=== PATIENT | female | born 1945 | race Caucasian/White ===

== ENCOUNTER 2019-12-29 10:26 | Outpatient (CLI) | payer BC, SELFPAY ==
[2019-12-29 11:18] LABS: Estimated Glomerular Filt Rate > 60
== END 2019-12-29 10:27 | disposition home or self-care (01) ==
LOC: ANHSURGERY 10:31
PROVIDERS: PCP Family Medicine; Visit Provider Orthopaedic Surgery
DX: M19.90 Unspecified osteoarthritis, unspecified site (principal)
CPT/HCPCS: 36415; 82565; 86850; 86880; 86900; 86901; 86922

== ENCOUNTER 2020-01-04 00:21 | Day surgery (SDC) | payer BC, SELFPAY ==
[2019-12-07 14:03] VITALS: BMI 24.7
[2019-12-07 14:46] VITALS: BMI 24.7
[2020-01-04] VITALS (13 sets, daily range): BP systolic 114–146; BP diastolic 31–93; PULSE 60–82; RESP 12–316; TEMP 36.2–36.7; O2SAT 91–100
--- NOTE | ~2020-01-04 | XR_ITS ---
EXAMINATION: XR knee RT 2V DATE: 01/04/2020 12:34 INDICATION: Postoperative evaluation following right total knee arthroplasty. TECHNIQUE: Anteroposterior and lateral views of the right knee were obtained. COMPARISON: None. FINDINGS: Right total knee arthroplasty with patellar resurfacing appears well seated and in near anatomic alig nment. No fractures identified. Expected postoperative subcutaneous and intra-articular gas. IMPRESSION: 1. Right total knee arthroplasty, negative for postoperative purposes. Reviewed, dictated and finalized at location A. PAPER PEDDLER
[2020-01-04] MEDS: LACTATED RINGERS 1,000 ML 30 ML IV CONT ×2 (09:05→12:22)
--- NOTE | 2020-01-04 09:24 | WPDANESEPPF ---
Anes - Initial Pre Proc Eval Procedure: Operation Date: 01/04/20 10:30 Proposed Procedures p Right Total Knee Arthroplasty - Bull Black MD Date/Time: 01/04/20 09:24 Surgeon: Bull Black MD Pre Op Diagnosis: Right Knee OA Patient Data Age: 74 Gender: F Height: 1.66 m Weight: 66.6 kg Last Vital Signs Temp 36.4 C 01/04/20 09:17 Pulse 71 01/04/20 09:17 Resp 16 01/04/20 09:17 BP 118/48 L 01/04/20 09:17 Pulse Ox 98 01/04/20 09:17 Allergies Allergy/AdvReac Type Severity Reaction Status Date / Time No Known Allergies Allergy Unverified 01/04/20 08:47 Home Medications Medication Instructions Recorded Confirmed Type diclofenac sodium 75 mg 75 mg PO BID 10/08/19 01/04/20 History tablet,delayed release estradiol 1 mg tablet 1 mg PO DAILY 10/08/19 01/04/20 History fluticasone propionate 50 2 spray NASAL DAILY PRN 10/08/19 01/04/20 History mcg/actuation nasal spray,suspension simvastatin 40 mg tablet 40 mg PO HS 10/08/19 01/04/20 History verapamil 240 mg tablet,extended 240 mg PO DAILY 10/08/19 01/04/20 History release cholecalciferol (vitamin D3) 25 1,000 unit PO DAILY 10/12/19 01/04/20 History mcg (1,000 unit) capsule multivitamin 1 tablet PO DAILY 10/12/19 01/04/20 History omeprazole 40 mg capsule,delayed 40 mg PO DAILY #90 cap 12/06/19 01/04/20 Rx release Patient hx anesthesia problems: none Family hx anesthesia problems: none [facility] [place] Social History Social History Smoking status: Former smoker Second hand tobacco smoke exposure: No Smoking end date: 11/24/06 Alcohol intake: never Substance use: never Substance use type: does not use Anes - Eval Final PreProcedure Day of Procedure 01/04/20 09:24 Patient weight: normal Heart: regular rate and rhythm Lungs: clear to auscultation and normal air movement Airway: Mallampati scale class II Neurological: alert and oriented Last oral intake: >/= 8 hours ASA classification: II Emergent: no Anesthetic plan: proceed Anesthesia type and monitoring: general LMA and standard monitoring Informed Consent: The patient's anesthetic plan and its attendant risks and benefits were discussed with the patient/family/POA. Questions were solicited and answers provided to the satisfaction of the patient/family/POA.
--- NOTE | 2020-01-04 09:24 | WPDANESPNB ---
Anes - Peripheral Nerve Block Date/Time: 01/04/20 09:24 I have discussed with the patient/family/POA the placement of a peripheral nerve block for post-operative pain management, including associated risks, benefits, complications, and side effects. Alternative methods of post-operative analgesia were detailed. Questions were solicited and answers provided to the satisfaction of the patient/family/POA. Time-Out: A pre-procedural Time-Out was completed immediately before starting the procedure and confirmed: Patient Identification, Site, Procedure, Patient Position and the Availability of Requisite Equipment. Clinical Indications: Acute post-operative pain management requested by the operative surgeon. Nerve Block Insertion Note Anes-nerve block: adductor canal right Patient position: supine Skin prep: chlorhexidine Needle: 22 gauge, stimulating, insulated echogenic needle. Needle length: 80 mm Technique: ultrasound Injectate: bupivacaine 0.5% with epi 5 mcg/ml (30cc) Observations: tolerated well Complications: none Procedure start time:: 957 Procedure end time:: 1000
--- NOTE | 2020-01-04 09:57 | WPDHPUPDATE1 ---
History and Physical Update Update Date/Time: 01/04/20 09:57 History and Physical has been reviewed, including an updated exam of the patient. There are NO changes in the patient's condition. Risks, benefits, and alternatives have been discussed and questions answered. Patient agrees to proceed with procedure.
[2020-01-04] MEDS: ceFAZolin 2 GM/D5W 50 ML 2 GM/50 ML BAG IVPB (10:14)
[2020-01-04] MEDS: GENTAMICIN BONE CEMENT REFOBACIN 1 EACH TOPICAL (11:27)
--- NOTE | 2020-01-04 12:07 | P.OP_ITS ---
Procedure Note - Detailed Date of procedure: 01/04/20 Pre-op diagnosis: Right Knee OA Degenerative arthritis, right knee. Post-op diagnosis: same Procedure performed: Total knee arthroplasty, right Implants: Frank Triathlon size 3 press-fit femur, size 4 cemented low-profile tibia, 11 mm CR polyethylene insert, 32mm asymmetric metal backed patellar component. Anesthesia: GETA and regional (subsartorial nerve block) Surgeon: Bull Black MD Estimated blood loss (mL): 200 Drains: No Pathology: none sent Complications: None Condition: stable Disposition: PACU Findings: Fair bone quality. Mixed varus valgus picture. No releases required. Minimal tibia bone resection. 4 deg femur rotation with 1.5mm donwnsize. OPERATIVE DETAILS: The patient was given a nerve block preoperatively, and then brought to the operating room. A general anesthetic was administered. The leg was prepped and draped in the usual sterile fashion. The limb was elevated and the tourniquet inflated to 300 mmHg during initial exposure. A longitudinal incision was created along the medial border of the patella and patellar tendon, and a minimally invasive optimized mid-vastus approach to the knee was performed. No medial release was taken. The knee was then flexed. The osteophytes were carefully removed. The intramedullary guide was placed in the femoral canal. The distal femoral resection was then taken with the oscillating saw. The collateral ligaments were carefully protected. The tibia was carefully exposed. The jig was applied, and the proximal tibia was resected according to preoperative plan. The knee was balanced in extension. Appropriate releases were taken where needed. The anterior cruciate ligament and meniscal remnants were removed. The posterior cruciate ligament was preserved. The patella was measured. Patellar resection was carried out with the oscillating saw. The lug holes drilled. The femur was sized and rotation assessed using a combination of gap balancing, posterior referencing, and the AP axis. The 4 in 1 cutting block was used to finish the femoral cuts after equal gaps were assured. The lug holes were drilled. The osteophytes were carefully removed from the back of the knee. The knee was copiously irrigated with antibiotic solution periodically throughout the procedure. The meniscal remnants were removed. The spacer block was used to confirm equal flexion and extension gaps. Further releases were performed as needed. The tibia was sized and broached. The bony surfaces were prepared for cementing with pulsatile lavage. The real tibial component was cemented into position followed by press fitting the femoral component. Excess cement was carefully removed. The patella component was press- fit. Patellar tracking was carefully assessed. No additional releases were required. The wound was closed with #1 Vycril suture, #2 Quill suture, 0-Quill suture, and 2-0 Quill suture followed by Steri-Strips. A sterile bulky dressing was applied. Meticulous hemostasis was maintained throughout the procedure. There were no complications. The patient was extubated and brought to the recovery room in stable condition after the application of sterile dressing with David bandage.
--- NOTE | 2020-01-04 12:34 | SUR.PHASEI ---
1230 radiology at bedside to do films of rt knee per dr dallas
--- NOTE | 2020-01-04 13:18 | SUR.PHASEI ---
1316 sbar faxed floor notified. update given to daughters
[2020-01-04] MEDS: SODIUM CHLORIDE 0.9% IV 1,000 ML 125 ML IV CONT (13:39)
--- NOTE | 2020-01-04 14:50 | PC.NURSE ---
This patient, Jannet Smiley, was admitted to [facility] Room 300-01. Patient/family oriented to hospital policies and general routines including ID bracelet, bed and alarms, visiting hours, pain management, procedures, bathroom and other care routines, personal items, smoking policy, room service/diet, and visiting hours. Valuables list has been completed. Information on how to activate the Rapid Response Team has been discussed. Patient/Family are encouraged to report perceived risks to care and to ask questions if they do not understand what they are told or what they should do.
[2020-01-04] MEDS: ASPIRIN 81 MG ENTERIC TABLET PO (17:14)
[2020-01-04] MEDS: DOCUSATE SODIUM 100 MG CAPSULE PO (17:15)
[2020-01-04] MEDS: MELOXICAM 7.5 MG TABLET PO (17:15)
[2020-01-04] MEDS: SIMVASTATIN 20 MG TABLET 40 MG PO (21:05)
[2020-01-04] MEDS: PANTOPRAZOLE 40 MG TABLET PO (21:05)
[2020-01-05 02:07] VITALS: BP 110/49; PULSE 76; RESP 20; TEMP 36.4; O2SAT 94
[2020-01-05 06:00] VITALS: BP 112/51; PULSE 75; RESP 20; TEMP 36.6; O2SAT 94
[2020-01-05 06:37] LABS: Basophils Percent Auto 0.3 % (0.2-1.2); Hematocrit 34.4 % (37.0-47.0); Hemoglobin 10.9 g/dL (12.0-15.0); Immature Granulocyte Absolute 0.07 K/mm3 (0.00-0.031); Immature Granulocyte Percent A 0.5 % (0-0.5); Lymphocytes Absolute Auto 1.92 K/mm3 (0.9-3.2); Mean Corpuscular HGB Conc 31.7 g/dl (32-36); Mean Corpuscular Hemoglobin 29.2 pg (26-34); Mean Corpuscular Volume 92.2 fl (80-100); Mean Platelet Volume 9.8 fl (7.4-10.4); Monocytes Absolute Auto 0.8 K/mm3 (0.1-0.6); Monocytes Percent Auto 6.6 % (2.6-8.5); Neutrophils Absolute Auto 9.9 K/mm3 (1.3-6.7); Neutrophils Percent Auto 77.6 % (45.5-73.1); Platelet Count Result 260 k/mm3 (150-375); Red Blood Count 3.73 M/mm3 (4.2-5.4); Red Cell Distribution Width 13.2 % (11.5-14.5); White Blood Count 12.8 K/mm3 (4.5-10.0)
[2020-01-05 06:47] LABS: Blood Urea Nitrogen 9 mg/dL (7-17); Calcium 8.4 mg/dL (8.4-10.2); Carbon Dioxide 28 mmol/L (22-30); Chloride 100 mmol/L (98-107); Estimated CRCL calculation 73 ml/min; Estimated Glomerular Filt Rate > 60; Glucose 99 mg/dL (65-105); Sodium 135 mmol/L (137-145)
[2020-01-05 10:23] VITALS: O2SAT 96
[2020-01-05] MEDS: CHOLECALCIFEROL 1,000 UNIT TABLET 1000 UNITS PO (10:27)
[2020-01-05] MEDS: ASPIRIN 81 MG ENTERIC TABLET PO (10:27)
[2020-01-05] MEDS: estradioL 1 MG TABLET PO (10:27)
[2020-01-05] MEDS: MELOXICAM 7.5 MG TABLET PO (10:27)
[2020-01-05] MEDS: MULTIVITAMINS THERAPEUTIC TAB (*BKC) 1 TABLET PO (10:27)
[2020-01-05] MEDS: PANTOPRAZOLE 40 MG TABLET PO (10:27)
[2020-01-05] MEDS: DOCUSATE SODIUM 100 MG CAPSULE PO (10:27)
[2020-01-05] MEDS: VERAPAMIL HCL ER 240 MG TABLET.ER PO (10:27)
--- NOTE | 2020-01-05 13:54 | PM.DS ---
DS: Diagnosis Admitting Diagnosis Admitting Diagnosis: Unspecified osteoarthritis, unspecified site Discharge Diagnosis (1) Osteoarthritis of right knee: Code(s): M17.11 - Unilateral primary osteoarthritis, right knee Status: Acute DS: Summary Hospital Course Reason for hospitalization: Total knee arthroplasty. Hospital Course: Tolerated surgery well. Progressed appropriately with therapy. Status at Discharge Functional status at discharge: uses cane/walker Time Spent with Patient Time attestation: Total time spent providing and/or coordinating discharge services: Exam Const: General: no acute distress Resp: Effort & Inspection: normal respiratory effort Skin: Other: Wound healing well. Mepilex dressing intact. No hematoma or drainage. Neuro: Motor exam (neuro): 5/5 motor strength present throughout Sensory Exam: normal sensation Psych: Mental Status: mental status grossly normal Speech and movement: Normal speech and movement present DS: Data Data Completed and Pending Labs on day of discharge: Labs from last 24 hours 01/05/20 01/05/20 05:41 05:41 WBC 12.8 H RBC 3.73 L Hgb 10.9 L Hct 34.4 L MCV 92.2 MCH 29.2 MCHC 31.7 L RDW 13.2 Plt Count 260 MPV 9.8 Immature Gran % (Auto) 0.5 Neut % (Auto) 77.6 H Lymph % (Auto) 15.0 L Jessamine % (Auto) 6.6 Eos % (Auto) 0.0 Baso % (Auto) 0.3 Lymph # (Auto) 1.92 Jessamine # (Auto) 0.8 H Eos # (Auto) 0.0 Baso # (Auto) 0.0 Abs Immat Gran (auto) 0.07 H Absolute Neuts (auto) 9.9 H Absolute Nucleated RBC 0.0 Nucleated RBC % 0.0 Sodium 135 L Potassium 4.0 Chloride 100 Carbon Dioxide 28 BUN 9 Creatinine 0.50 L Estim Creat Clear Calc 73 Estimated GFR > 60 Glucose 99 Calcium 8.4 Discharge Plan Discharge Patient Disposition: Home, Self-Care Discharge Instructions: See instruction sheet. Follow-up/Referrals: Bull Black MD [Physician] - Discharge Medications: New oxycodone-acetaminophen 5-325 mg tablet 1 - 2 tablet PO Q4-6H MDD 8 tablets PRN (Reason: pain) Qty: 40 RF: 0 Continued multivitamin Tablet 1 tablet PO DAILY RF: 0 cholecalciferol (vitamin D3) 1,000 unit capsule 1,000 unit PO DAILY RF: 0 fluticasone propionate 50 mcg/actuation spray,suspension 2 spray NASAL DAILY PRN (Reason: Nasal Congestion) RF: 0 estradiol 1 mg tablet 1 mg PO DAILY RF: 0 diclofenac sodium 75 mg tablet,delayed release (DR/EC) 75 mg PO BID RF: 0 simvastatin 40 mg tablet 40 mg PO HS RF: 0 verapamil 240 mg tablet extended release 240 mg PO DAILY RF: 0 omeprazole 40 mg capsule,delayed release(DR/EC) 40 mg PO DAILY Qty: 90 RF: 1 Quality VTE Prophylaxis VTE prophylaxis: mechanical ordered (JARRETT cardoza and Martha)
[2020-01-05 14:00] VITALS: BP 117/47; PULSE 86; RESP 18; TEMP 36.6; O2SAT 95
== END 2020-01-05 15:00 | disposition home or self-care (01) ==
LOC: ANHSURGERY 08:36 → ANH3MEDSUR 14:06
PROVIDERS: PCP Family Medicine; Visit Provider Orthopaedic Surgery
PROC: (CPT 27447; principal; 2020-01-04 10:30)
DX: M17.11 Unilateral primary osteoarthritis, right knee (principal); G89.18 Other acute postprocedural pain; I10 Essential (primary) hypertension; E78.5 Hyperlipidemia, unspecified; Z87.891 Personal history of nicotine dependence
CPT/HCPCS: 27447; 64447; 36415; 73560; 80048; 85025; 86922; 97110; 97161; 97165; 97530; A9270; C1713; C1776; J0131; J0171; J0690; J1100; J1885; J2270; J2405; J2704; J2795; J3010; J7030; J7120

== ENCOUNTER 2020-10-27 08:47 | Outpatient (NON) | payer BC, SELFPAY ==
[2020-10-27 19:10] LABS: SARS-CoV-2 RNA PCR Negative
== END 2020-10-27 08:48 ==
LOC: ANHCOVIDDT 08:49
PROVIDERS: PCP Family Medicine; Visit Provider Family Medicine
DX: R68.89 Other general symptoms and signs (principal); Z20.828 Contact with and (suspected) exposure to other viral communicable diseases
CPT/HCPCS: 87635; C9803; U0003

== ENCOUNTER 2021-07-19 09:51 | Outpatient (CLI) | payer BC, SELFPAY ==
--- NOTE | ~2021-07-19 | MM_ITS ---
EXAMINATION: MM screening [facility] BI w robin HISTORY: Screening mammogram TECHNIQUE: Craniocaudal and mediolateral oblique 3-D tomosynthesis images were obtained and synthetic 2-D images were generated. CAD analysis was submitted and interpreted. COMPARISON: 06/11/2019, 06/09/2018, 05/28/2017 BREAST PARENCHYMAL COMPOSITION: The breasts are almost entirely fatty. FINDINGS: There is no evidence of suspicious mass, calcification, or architectural distortion to sugg est malignancy in either breast. There has been no suspicious interval change. IMPRESSION: 1. No mammographic evidence of malignancy. 2. Recommend routine screening mammography in one year. BI-RADS Category 1: Negative Reviewed, dictated and finalized at location A.
--- NOTE | ~2021-07-19 | DEXA_ITS ---
Bone Density Report Name: Jannet Smiley Age: 76 Sex: Female Ethnicity: White Date of : 1945 Indication: postmenopausal; height loss; hysterectomy; Referring Provider: Carlos Cast Study: Bone densitometry was performed. Exam Date: July 19, 2021 Accession number: [id number] Bone Density: Region BMD T-score Z-score Classification AP Spine (L1-L4) 1.435 3.5 6.1 Normal World Health Organization criteria for BMD impression classify patients as: Normal (T-score at or above -1.0), Osteopenia (T-score between -1.0 and -2.5), or Osteoporosis (T-score at or below -2.5). Previous Exams: Region Exam Age BMD T-score BMD Change BMD Change Date g/cm2 vs Baseline vs Previous AP Spine(L1-L4) 07/19/2021 76 1.435 3.5 0.231(19.2%)# 0.122(9.3%)* 06/09/2018 73 1.313 2.4 0.109(9.1%)# 0.079(6.4%)# 04/29/2014 69 1.234 1.7 0.030(2.5%)* 0.030(2.5%)* 02/01/2012 66 1.204 1.4 *Denotes significance at 95% confidence level, LSC for AP Spine = 0.022 g/cm2 Clinical Information Provided by Patient: Has used the following medications: HRT (i.e. estrogen/hormone therapy), Vitamin D Has the following medical conditions: Hysterectomy Patient maximum height was 66 Menopause Age: 48 No regular weight bearing exercise Drinks caffeinated beverages Onset of menses at age 10 Number of children 4 Impression: The patient has normal bone mass. No significant bone loss was observed. Discussion: LOW RISK OF FRACTURE; BONE DENSITY IS WELL ABOVE THE MINIMUM DESIRABLE LEVEL AND ABOVE AVERAGE FOR AGE AND SEX AT ALL SKELETAL SITES TESTED. This person's bone density is above expected limits for age and sex. This is rarely clinically significant, but should be pursued if there are significant musculoskeletal complaints. The patient should follow a healthful lifestyle (good nutrition with adequate calcium and vitamin D, and appropriate weight-bearing exercise). Follow-Up: Consider repeating this study in 5 years or sooner if there is some new clinical indication. Reported by: [facility] on 07/19/2021 10:24:00 AM. Reviewed, dictated and finalized at location ACo[facility] CENTERNoam
== END 2021-07-19 09:52 | disposition home or self-care (01) ==
LOC: ANHIMG 09:56
PROVIDERS: PCP Family Medicine; Visit Provider Family Medicine
DX: Z12.31 Encounter for screening mammogram for malignant neoplasm of breast (principal); Z78.0 Asymptomatic menopausal state; M85.80 Other specified disorders of bone density and structure, unspecified site
CPT/HCPCS: 77063; 77067; 77080

== ENCOUNTER 2021-09-04 10:33 | Outpatient (CLI) | payer BC, SELFPAY ==
--- NOTE | 2021-09-04 | ECHO_ITS ---
Patient Info Name: Jannet Smiley Age: 76 years : 1945 Gender: Female Ht: 66 in Wt: 147 lbs BSA: 1.77 m2 HR: 74 bpm BP: 106 / 77 mmHg Heart Rhythm: Sinus Rhythm Technical Quality: Good Exam Date: 09/04/2021 10:58 AM Exam Location: [facility] Patient Status: Outpatient Admit Date: 09/04/2021 Staff Ordering Physician: Ilir, Jovanni Jain MD Engagement Quality Consultant: ISAURA Attending Provider: Ilir, Jovanni Jain MD Referring Physician: Ilir LEAL; Exam Type: CA echo doppler color flow Study Info Indications R40.4 - TRANSIENT ALTERED AWARENESS Complete two-dimensional, color flow and Doppler transthoracic echocardiogram is performed. Summary 1. Complete two-dimensional, color flow and Doppler transthoracic echocardiogram is performed. 2. Left ventricular chamber dimension is normal. 3. Left ventricular systolic function is normal, estimated at 65-70%. 4. There is no increased left ventricular wall thickness. 5. The left ventricular diastolic function is grade I diastolic dysfunction. 6. Left atrial chamber dimension is mildly enlarged. 7. There is no aortic valve stenosis. 8. There is mild to moderate tricuspid valve regurgitation. 9. Mild pulmonary hypertension, estimated pulmonary arterial systolic pressure is 39 mmHg. Left Ventricle Left ventricular chamber dimension is normal. Left ventricular systolic function is normal, estimated at 65-70%. There is no increased left ventricular wall thickness. The left ventricular diastolic function is grade I diastolic dysfunction. Right Ventricle Right ventricular chamber dimension is normal. Right ventricular systolic function is normal. Left Atria Left atrial chamber dimension is mildly enlarged. Right Atria Right atrial chamber dimension is normal. Aortic Valve The aortic valve is trileaflet. There is mild aortic valve sclerosis. There is no aortic valve stenosis. There is no aortic valve regurgitation. Pulmonic Valve The pulmonic valve is not well visualized. There is mild pulmonic regurgitation. Mitral Valve The mitral valve has normal leaflets. There is trace mitral valve regurgitation. The mitral valve annulus is mildly calcified. Tricuspid Valve The tricuspid valve leaflets are normal. There is mild to moderate tricuspid valve regurgitation. Mild pulmonary hypertension, estimated pulmonary arterial systolic pressure is 39 mmHg. Pericardium/Pleural The pericardium appears normal. There is trivial pericardial effusion. Inferior Vena Cava Normal inferior vena cava with >50% collapse upon inspiration consistent with normal right atrial pressure, 5 mmHg. Aorta The aortic root size at the sinus of Valsalva is normal. Left Ventricular Outflow Tract Name Value Normal LVOT 2D LVOT Diameter 2.1 cm LVOT Doppler LVOT Peak Gradient 4 mmHg LVOT Mean Gradient 2 mmHg LVOT VTI 21 cm LVOT VTI/AV VTI Ratio 0.9 LVOT Stroke Volume 75 ml LVOT CO
--- NOTE | 2021-09-06 15:47 | WPDHOLTEREM ---
Holter/Event Monitor Holter/Event Monitor Date of procedure: 09/04/21 Holter/Event Procedure: 24 Hr Holter Monitor Indications: Altered awareness transient Conclusion: 1. 24 hour holter monitor on 09/04/21. 2. Predominant rhythm is sinus rhythm. HR range 56-121 bpm; average HR 73 bpm. 3. There are 93 premature supraventricular complexes, 30 supraventricular couplets. There are 3 episodes of atrial tachycardia, fastest at 145 bpm and longest lasting 5 beats. 4. There are 66 premature ventricular complexes, 1 ventricular couplet, 6 ventricular trigeminy. No ventricular tachycardia. 5. No sinoatrial or atrioventricular blocks. No significant pauses greater than 2 seconds. 6. No symptoms available for correlation.
== END 2021-09-04 10:34 | disposition home or self-care (01) ==
PROVIDERS: PCP Family Medicine; Visit Provider Psychiatry & Neurology Neurology
DX: R40.4 Transient alteration of awareness (principal); I27.20 Pulmonary hypertension, unspecified; I36.1 Nonrheumatic tricuspid (valve) insufficiency
CPT/HCPCS: 93225; 93226; 93306

== ENCOUNTER 2021-09-10 07:47 | Outpatient (CLI) | payer BC, SELFPAY ==
--- NOTE | ~2021-09-10 | MR_ITS ---
EXAMINATION: MR brain/brain stem wo con DATE: 09/10/2021 08:39 INDICATION: Altered mental status. TECHNIQUE: Magnetic resonance imaging (MRI) of the brain and brainstem was performed without intraven ous contrast. Sequences included sagittal and axial T1-weighted FSE, axial diffusion-weighted FS EPI, axial T2*-weighted GRE, axial T2-weighted FLAIR Propeller, and axial T2-weighted Propeller. Apparent diffusion coefficient (ADC) maps were created. COMPARISON: None. FINDINGS: There are scattered areas of nonspecific increased T2-weighted signal intensity in the cere bral white matter. There is no intracranial hemorrhage, acute infarction, or abnormal intracranial ma ss lesion. The ventricles are normal in size. There is mild mucosal thickening in the paranasal sinus es. The orbits are normal. The mastoid air cells are normal. IMPRESSION: 1. Moderate nonspecific cerebral white matter disease, which likely represents chronic small vessel i schemic disease. Reviewed, dictated and finalized at location A. IMPRESSION: 1. Moderate nonspecific cerebral white matter disease, which likely represents chronic small vessel ischemic disease.
--- NOTE | 2021-09-11 11:02 | WPDNEUROLOGY ---
Neurology EEG Report General Information Date of Study: 09/10/21 TEST eeg DIAGNOSIS Altered mental status CONDITION OF RECORDING awake and drowsy EEG NUMBER [id number] CLINICAL HISTORY patient reported she had 1 episodes of a strange feeling in her head and then losing about 20 minutes of time while driving denies loss of consciousness EEG DESCRIPTION basic resting occipital frequency consists of 8 to 9 hertz per 2nd alpha admixed with low-voltage 15 to 18 hertz per 2nd beta. Low-voltage beta activity seen diffusely admixed with waxing and waning posterior alpha rhythm. Bilateral symmetrical sleep activity seen during sleep. Multiple EKG artifacts are noted throughout the tracing. Hyperventilation not done. Photic stimulation produced normal and symmetrical drive. Non paroxysmal. Nonfocal. Nonlateralizing. IMPRESSION Normal record
== END 2021-09-10 07:48 | disposition home or self-care (01) ==
LOC: ANHIMG 07:54
PROVIDERS: PCP Family Medicine; Visit Provider Psychiatry & Neurology Neurology
DX: R40.4 Transient alteration of awareness (principal); R93.0 Abnormal findings on diagnostic imaging of skull and head, not elsewhere classified
CPT/HCPCS: 70551; 95816

== ENCOUNTER 2021-10-01 15:25 | Outpatient (CLI) | payer BC, SELFPAY ==
--- NOTE | ~2021-10-01 | US_ITS ---
EXAMINATION: US carotid duplex BI DATE: 10/01/2021 17:04 INDICATION: Altered awareness. TECHNIQUE: Grayscale, color Doppler, and pulsed Doppler images of the cervical carotid arteries were obtained. The degree of vessel stenosis is placed in one of the following categories: normal, <50%, 5 0-69%, >=70% but less than near-occlusion, near-occlusion, or total occlusion. Note that percent sten osis relative to normal distal artery lumen diameter is indirectly measured from velocity measurement s as described by Floyd, et al. Radiology 2003; 229:340-346. Notes: Normal: Peak systolic velocity <125 centimeters/sec and no plaque <50%. Peak systolic velocity <125 ( EDV <40; ICA/CCA PSV ratio <2.0; used these factors only a tandem lesions or low cardiac output or co ntralateral disease) 50-69 %: PSV 125-230 (EDV 40-100; ratio 2-4) >= 70% but less than near occlusion: PSV greater than 230 (EDV > 100; ratio> 4.0) Near Occlusion: PSV that is variable; markedly narrowed lumen Occlusion: Absent flow on color/spectral Doppler and no lumen on holbrook scale. COMPARISON: None. FINDINGS: RIGHT: The right common carotid artery (CCA) peak systolic velocity (PSV) is 124 cm/s. The right internal ca rotid artery (ICA) PSV is 82 cm/s. The right ICA end-diastolic velocity (EDV) is 28 cm/s. The right I CA/CCA PSV ratio is 1.1. The external carotid artery (ECA) PSV is 73 cm/s. There is antegrade flow in the right vertebral artery. LEFT: The left CCA PSV is 100 cm/s. The left ICA PSV is 85 cm/s. The left ICA EDV is 10 cm/s. The left ICA/ CCA PSV ratio is 0.9. The ECA PSV is 71 cm/s. There is antegrade flow in the left vertebral artery. IMPRESSION: 1. Less than 50% stenosis in the right internal carotid artery by sonographic criteria. 2. Less than 50% stenosis in the left internal carotid artery by sonographic criteria. Reviewed, dictated and finalized at location A. [employer] APPLICATIONS ENGINEER IMPRESSION: 1. Less than 50% stenosis in the right internal carotid artery by sonographic jermaine feldman. 2. Less than 50% stenosis in the left internal carotid artery by sonographic kate pradhan.
== END 2021-10-01 15:26 | disposition home or self-care (01) ==
LOC: ANHIMG 15:33
PROVIDERS: PCP Family Medicine; Visit Provider Psychiatry & Neurology Neurology
DX: R40.4 Transient alteration of awareness (principal); I65.23 Occlusion and stenosis of bilateral carotid arteries
CPT/HCPCS: 93880

== ENCOUNTER 2022-09-25 09:53 | Outpatient (CLI) | payer BC, SELFPAY | END 2022-09-25 09:54 | disposition home or self-care (01) | LOC: ANHAUDIO 09:55 | PROVIDERS: PCP Family Medicine; Visit Provider Otolaryngology | DX: H90.3 Sensorineural hearing loss, bilateral (principal) | CPT/HCPCS: 92557; 92567 ==

== ENCOUNTER 2022-10-01 09:50 | Outpatient (CLI) | payer BC, SELFPAY ==
--- NOTE | ~2022-10-01 | MM_ITS ---
EXAMINATION: MM screening jaziel BI w robin HISTORY: Screening mammogram TECHNIQUE: Craniocaudal and mediolateral oblique 3-D tomosynthesis images were obtained and synthetic 2-D images were generated. CAD analysis was submitted and interpreted. COMPARISON: 07/19/2021, 06/11/2019, 06/09/2018 bilateral screening mammogram examinations BREAST PARENCHYMAL COMPOSITION: The breasts are almost entirely fatty. FINDINGS: There is no evidence of suspicious mass, calcification, or architectural distortion to sugg est malignancy in either breast. There has been no suspicious interval change. IMPRESSION: 1. No mammographic evidence of malignancy. 2. Recommend routine screening mammography in one year. BI-RADS Category 1: Negative Reviewed, dictated and finalized at location A. RENTAL CLERK
== END 2022-10-01 09:51 | disposition home or self-care (01) ==
PROVIDERS: PCP Family Medicine; Visit Provider Family Medicine
DX: Z12.31 Encounter for screening mammogram for malignant neoplasm of breast (principal)
CPT/HCPCS: 77063; 77067

== ENCOUNTER 2022-10-01 11:26 | Emergency (ER) | payer BC, SELFPAY ==
[2022-10-01] VITALS (7 sets, daily range): BP systolic 114–138; BP diastolic 68–79; PULSE 78–98; RESP 13–19; TEMP 37.1; O2SAT 93–96
--- NOTE | ~2022-10-01 | XR_ITS ---
EXAMINATION: XR chest 2V DATE: 10/01/2022 12:56 INDICATION: Cough and shortness of breath. TECHNIQUE: Frontal and lateral views of the chest were obtained. COMPARISON: None. FINDINGS: There is eventration of anterior right hemidiaphragm. The chest demonstrates clear lungs wi thout pneumonia, pleural effusion, or pneumothorax. The heart size is normal. IMPRESSION: 1. No acute cardiopulmonary disease. Reviewed, dictated and finalized at location A. PPER AND BUFFER
--- NOTE | 2022-10-01 11:50 | ECG_ITS ---
Measurements Intervals [place] Rate: 83 P: 72 MS: 141 QRS: 54 QRSD: 82 T: 54 QT: 373 QTc: 438 Interpretive Statements SINUS RHYTHM CANNOT RULE OUT SEPTAL INFARCT, AGE INDETERMINATE BORDERLINE ST-T WAVE ABNORMALITY- ANT/INF LEADS ABNORMAL ECG COMPARED TO ECG 06/04/2019 09:55:20 NO SIGNIFICANT CHANGES Electronically Signed On 10-01-2022 13:30:05 RAGMAN by Oren Land D.O.
[2022-10-01 12:02] LABS: Basophils Absolute Auto 0.1 K/mm3 (0.0-0.1); Basophils Percent Auto 0.9 % (0.2-1.2); Eosinophils Absolute Auto 0.1 K/mm3 (0-0.3); Eosinophils Percent Auto 1.4 % (0-4.4); Hematocrit 42.1 % (37.0-47.0); Hemoglobin 13.3 g/dL (12.0-15.0); Immature Granulocyte Absolute 0.02 K/mm3 (0.00-0.031); Immature Granulocyte Percent A 0.3 % (0-0.5); Lymphocytes Absolute Auto 0.77 K/mm3 (0.9-3.2); Lymphocytes Percent Auto 13.3 % (18.3-44.2); Mean Corpuscular HGB Conc 31.6 g/dl (32-36); Mean Corpuscular Hemoglobin 29.8 pg (26-34); Mean Corpuscular Volume 94.4 fl (80-100); Mean Platelet Volume 9.5 fl (7.4-10.4); Monocytes Absolute Auto 0.5 K/mm3 (0.1-0.6); Monocytes Percent Auto 8.1 % (2.6-8.5); Neutrophils Absolute Auto 4.4 K/mm3 (1.3-6.7); Platelet Count Result 257 k/mm3 (150-375); Red Blood Count 4.46 M/mm3 (4.2-5.4); Red Cell Distribution Width 12.5 % (11.5-14.5); White Blood Count 5.8 K/mm3 (4.5-10.0)
[2022-10-01 12:12] LABS: Alanine Aminotransferase 18 U/L (6-35); Albumin Level 4.2 g/dL (3.5-5.1); Alkaline Phosphatase 60 U/L (38-126); Anion Gap 9 mmol/L (8-16); Aspartate Amino Transferase 24 U/L (14-36); Bilirubin,Total 0.7 mg/dL (0.2-1.3); Blood Urea Nitrogen 15 mg/dL (7-17); Calcium 8.6 mg/dL (8.4-10.2); Carbon Dioxide 29 mmol/L (22-30); Chloride 100 mmol/L (98-107); Estimated CRCL calculation 63 ml/min; Estimated Glomerular Filt Rate > 60; Glucose 90 mg/dL (65-110); Potassium 4.1 mmol/L (3.4-5.0); Sodium 138 mmol/L (137-145)
--- NOTE | 2022-10-01 12:38 | ED.GENADULT ---
HPI - General Adult General Chief complaint: Unspecified Stated complaint: sob, episode of tremoring Time Seen by Provider: 10/01/22 12:03 History of Present Illness HPI narrative: Patient is a 77-year-old female with a history of hypertension, hyperlipidemia, GERD, anxiety presenting with an episode of trembling. Patient was at the grocery store when she started to feel lightheaded and like she needed to sit down. Patient then started to have generalized trembling. Patient and her family states that she was talking throughout it and was alert and aware. She denies any focal numbness or weakness. No speech changes. Denies chest pain. Patient's family states that she started breathing quickly but the patient denies any shortness of breath. States that she has had a cough and nasal congestion lately. Patient and her family report that she has actually been having these episodes for at least the last year. She has been seen by her PCP as well as neurology, cardiology, otolaryngology. So far, they have not found anything abnormal. They did start her on hydroxyzine for anxiety. Patient states that today felt like one of her episodes of just lasted longer than normal. Denies recent fevers, abdominal pain, nausea or vomiting, diarrhea, dysuria, leg swelling. Related Data Home Medications Medication Instructions Recorded Confirmed cholecalciferol (vitamin D3) 25 1,000 unit PO DAILY 10/12/19 10/09/22 mcg (1,000 unit) capsule multivitamin 1 tablet PO DAILY 10/12/19 10/09/22 diclofenac sodium 75 mg 75 mg PO DAILY 12/17/21 10/09/22 tablet,delayed release Allergies Allergy/AdvReac Type Severity Reaction Status Date / Time lisinopril AdvReac Mild Cough Verified 10/09/22 10:11 Review of Systems Review of Systems: All systems reviewed & are unremarkable except as noted in HPI and below [facility] Past Medical History Medical History Dyslipidemia Environmental allergies Essential (primary) hypertension GERD without esophagitis History of esophageal stricture 12/2016 History of leukocytosis 2014 Osteoarthritis of both knees Osteoarthritis of right knee Osteopenia Postmenopausal state Surgical History Surgical History History of endoscopy 01/20/12 02/25/18 History of hysterectomy 03/07/1998 History of left hip replacement 05/12/18 History of right hip replacement 06/15/19 History of right knee joint replacement 12/2019 Hx of tonsillectomy Hx of wisdom tooth extraction Social History Social History Smoking status: Former smoker Second hand tobacco smoke exposure: No Smoking end date: 11/24/06 Alcohol intake: never Substance use: never Substance use type: does not use Gender identity (if verbalized by the patient): Female Spiritual care concerns: No Agree to blood products: Yes Exam Narrative: GENERAL: Well-appearing, well-nourished, and in no acute distress. HEAD: Normocephalic, atraumatic. EYES: PERRLA and EOMI. ENT: Nares clear, no rhinorrhea or epistaxis. Mucous membranes moist. NECK: Supple. CHEST: Clear to auscultation. No respiratory distress. HEART: Regular rate and rhythm. No murmur heard. Normal peripheral pulses. ABDOMEN: Soft, nontender, nondistended, normal active bowel sounds. EXTREMITIES: Normal range of motion. No edema. SKIN: Warm, dry, no rash. NEURO: No focal deficits. Alert and oriented x3. PSYCH: Normal mood and affect. Course Vital Signs Vital signs: Vital Signs Temperature 98.7 F 10/01/22 11:29 Pulse Rate 98 10/01/22 11:29 Respiratory Rate 16 10/01/22 11:29 Blood Pressure 138/71 10/01/22 11:29 Pulse Oximetry 95 10/01/22 11:29 Temperature 98.7 F 10/01/22 11:29 Pulse Rate 78 10/01/22 15:56 Respiratory Rate 16 10/01/22 15:56 Blood Pressure 114/71 10/01/22
[2022-10-01] MEDS: SODIUM CHLORIDE 0.9% IV 1,000 ML 999 ML IV CONT (13:05)
[2022-10-01 13:24] LABS: Appearance Urine Clear (Clear); Bilirubin Urine Negative (Negative); Blood Urine Negative (Negative); Color Urine Yellow (Yellow); Glucose Urine UA Negative (Negative); Ketones Urine Trace mg/dL (Negative); Leukocyte Esterase Ur Negative LEU/UL (Negative); Nitrate Urine Negative (Negative); Protein Urine Negative (Negative); Specific Grav Ur 1.015 (1.001-1.035)
[2022-10-01 13:41] LABS: Influenza A QL RT-PCR Negative (Negative); Influenza B QL RT-PCR Negative (Negative); SARS-CoV-2 RNA PCR Negative
[2022-10-01 14:38] LABS: RBC Urine 0-2 /hpf (0-2); Squamous Epithelial Cell Urine Moderate /hpf (Few); WBC Urine 0-3 /hpf
[2022-10-01 14:39] LABS: Add Urine Microscopic? YES
== END 2022-10-01 15:58 | disposition home or self-care (01) ==
PROVIDERS: Emergency Medicine; Emergency Provider Emergency Medicine; PCP Family Medicine
DX: R25.1 Tremor, unspecified (principal); Z20.822 Contact with and (suspected) exposure to COVID-19; E78.5 Hyperlipidemia, unspecified; K21.9 Gastro-esophageal reflux disease without esophagitis; M19.90 Unspecified osteoarthritis, unspecified site
CPT/HCPCS: 36415; 71046; 80053; 81001; 85025; 87636; 93005; 96360; 99284; J7030

== ENCOUNTER → 2022-10-09 11:05 | Outpatient (CLI) | payer BC, SELFPAY ==
--- NOTE | ~2022-10-09 | XR_ITS ---
XR sinus min 3V DATE: 10/09/2022 12:03 INDICATION: Other specified symptoms in size involving the paranasal sinuses TECHNIQUE: 3 views COMPARISON: None FINDINGS: The paranasal sinuses and mastoid air cells appear normally developed and aerated. IMPRESSION: Clear paranasal sinuses and mastoid air cells Reviewed, dictated and finalized at location A. CAL RECORDS ASSISTANT
== END ==
PROVIDERS: PCP Family Medicine; Visit Provider Family Medicine
DX: R09.89 Other specified symptoms and signs involving the circulatory and respiratory systems (principal)
CPT/HCPCS: 70220

== ENCOUNTER 2023-02-13 12:27 | Outpatient (CLI) | payer BC, SELFPAY ==
--- NOTE | ~2023-02-13 | MR_ITS ---
MRI of the brain Clinical History: Seizure-like activity Technique: Axial and sagittal T1-weighted images were acquired. These were followed by axial T2-weigh ney, diffusion weighted, gradient, and FLAIR images. COMPARISON: 09/10/2021 Findings: There is no acute infarct, intracranial hemorrhage, or mass lesion. There is moderate chron ic microvascular ischemic change throughout the periventricular white matter. Ventricles and subarachnoid spaces are mildly dilated. Orbits are unremarkable. Paranasal sinuses and mastoid air cells are clear. Major intracranial flow voids appear intact. Sagittal midline structures are intact. IMPRESSION: No acute abnormality. Stable chronic microvascular ischemic change and mild generalized atrophy. Reviewed, dictated and finalized at location .
--- NOTE | 2023-02-14 11:15 | P.NEURO_ITS ---
Neurology EEG Report General Information Date of Study: 02/13/23 TEST EEG DIAGNOSIS seizure-like activity CONDITION OF RECORDING awake and drowsy EEG NUMBER [id number] CLINICAL HISTORY patient reports she had an episode of feeling funny had to sit down and began uncontrollable shaking for a few minutes. Denies any loss of consciousness. EEG DESCRIPTION Basic resting occipital frequency consists of low to medium voltage well- organized 8 to 9 hertz per 2nd alpha admixed with low-voltage 15 to 18 hertz per 2nd beta. Low-voltage beta activity seen diffusely admixed with waxing and waning posterior alpha rhythm. Bilateral symmetrical sleep activity seen during sleep. hyperventilation not done. Photic stimulation produced normal drive. Non paroxysmal. Nonfocal. Nonlateralizing. IMPRESSION Normal record
== END 2023-02-13 12:28 | disposition home or self-care (01) ==
PROVIDERS: PCP Family Medicine; Visit Provider Student in an Organized Health Care Education/Training Program
DX: R56.9 Unspecified convulsions (principal); R93.0 Abnormal findings on diagnostic imaging of skull and head, not elsewhere classified
CPT/HCPCS: 70551; 95816

== ENCOUNTER 2023-02-23 13:02 | Inpatient (IN) | payer MEDICARE, BC, SELFPAY ==
[2023-02-23] VITALS (13 sets, daily range): BP systolic 110–150; BP diastolic 52–67; PULSE 78–92; RESP 15–26; TEMP 36.6–37; O2SAT 88–98
--- NOTE | ~2023-02-23 | XR_ITS ---
EXAMINATION: XR chest 1V portable DATE: 02/23/2023 13:43 INDICATION: Cough and shortness of breath. COVID-19 positive. TECHNIQUE: A single frontal view of the chest was obtained. COMPARISON: Chest 2 views 10/01/2022 FINDINGS: The chest demonstrates clear lungs without pneumonia, pleural effusion, or pneumothorax. Th e heart size is normal. IMPRESSION: 1. No acute cardiopulmonary disease. Reviewed, dictated and finalized at location A.
--- NOTE | ~2023-02-23 | CT_ITS ---
EXAMINATION: CTA chest PE protocol DATE: 02/23/2023 14:44 INDICATION: dyspnea TECHNIQUE: Computed tomography angiography (CTA) of the chest was performed with 100 mL Omnipaque-350 intravenous contrast timed to evaluate the pulmonary arteries. Coronal maximum intensity projection 3D-reconstructions were created by the technologist. The dose-length product (DLP) was 293.65 mGy-cm. Automated exposure control and iterative reconstruction technique were employed. COMPARISON: None. FINDINGS: Lung parenchyma and airways: Motion limited. Multifocal, bilateral areas of groundglass and consolida tive centrilobular opacities, most pronounced in the medial left lower lobe. Pleura: Unremarkable. Thoracic inlet, axillae and chest wall: Unremarkable. Thoracic aorta: Mild arch calcification. Mediastinum: Large hiatal hernia. Prominent mediastinal lymph nodes, not pathologic based on size cri teria. Heart and pericardium: Mitral calcification. Coronary artery calcifications: Mild. Upper abdomen: No significant finding. Bones: No acute osseous finding. Pulmonary arteries: Study quality: Degraded by motion such that subsegmental and non-occlusive segmen nina emboli could be missed. No central pulmonary emboli detected. IMPRESSION: No central emboli detected. Motion degraded study such that subsegmental and small nonocclusive segme ntal emboli could be missed. Pulmonary opacities may represent atypical infection, possibly with a co mponent of aspiration. Reviewed, dictated and finalized at location K. IMPRESSION: No central emboli detected. Motion degraded study such that subsegmental and sm all nonocclusive segmental emboli could be missed. Pulmonary opacities may repr esent atypical infection, possibly with a component of aspiration.
--- NOTE | 2023-02-23 13:08 | PC.NURSE ---
pt daughter. [phone]
--- NOTE | 2023-02-23 13:09 | ECG_ITS ---
Measurements Intervals [place] Rate: 80 P: -75 NM: 79 QRS: 63 QRSD: 91 T: 55 QT: 379 QTc: 439 Interpretive Statements POSSIBLE SINUS RHYTHM VS ECTOPIC ATRIAL RHYTHM BASELINE ARTIFACT PRESENT, WHICH LIMITS INTERPRETATION ABNORMAL RHYTHM ECG COMPARED TO ECG 10/01/2022 12:04:36 POSSIBLE ECTOPIC ATRIAL RHYTHM PRESENT Electronically Signed On 02-24-2023 11:49:32 CDT by Rich Grace M.D.
--- NOTE | 2023-02-23 13:39 | ED.SOB ---
HPI - SOB/Dyspnea General Chief Complaint: Shortness of Breath/Dyspnea Stated Complaint: COVID+ (diag ), SOB Time Seen by Provider: 02/23/23 13:20 Source: RN notes reviewed History of Present Illness HPI Narrative: Patient presents emergency department from home for shortness of breath. Patient states he began to feel bad on Friday of this past week or approximately 6 days ago. States has been having a cough this been nonproductive and feeling generally tired. She states that she took a home COVID test on Friday that was positive patient states that she had been progressively feeling more short of breath and came to the emergency room for further evaluation. In triage patient was noted to have an oxygen saturation of 88% was placed on 2 L nasal cannula. She states she was having a mild headache that is now resolved following being placed on oxygen she denies any previous lung condition and denies tobacco use denies any fevers or chills chest pain abdominal pain nausea or vomiting Related Data Home Medications Medication Instructions Recorded Confirmed cholecalciferol (vitamin D3) 25 1,000 unit PO DAILY 10/12/19 11/26/22 mcg (1,000 unit) capsule multivitamin 1 tablet PO DAILY 10/12/19 11/26/22 cetirizine 10 mg tablet (Zyrtec) 10 mg PO DAILY PRN 11/26/22 11/26/22 diclofenac sodium 75 mg 75 mg PO DAILY PRN pain 11/26/22 11/26/22 tablet,delayed release Allergies Allergy/AdvReac Type Severity Reaction Status Date / Time lisinopril AdvReac Mild Cough Verified 02/23/23 13:45 Review of Systems Review of Systems: Gen.: Denies fevers or chills ENT: Denies congestion Respiratory: See HPI CV: Denies chest pain or palpitations GI: Denies abdominal pain nausea, emesis or diarrhea denies burning, urgency, frequency or hematuria Musculoskeletal: Denies back pain or muscle pain Neuro: Denies numbness, tingling, weakness or focal weakness reports headache that is now resolved Skin: Denies rash Except as documented, all other systems reviewed and negative [facility] Past Medical History Medical History Dyslipidemia Environmental allergies Essential (primary) hypertension GERD without esophagitis History of esophageal stricture 12/2016 History of leukocytosis 2014 Osteoarthritis of both knees Osteoarthritis of right knee Osteopenia Postmenopausal state TMJ (temporomandibular joint disorder) Surgical History Surgical History History of endoscopy 01/20/12 02/25/18 History of hysterectomy 03/07/1998 History of left hip replacement 05/12/18 History of right hip replacement 06/15/19 History of right knee joint replacement 12/2019 Hx of tonsillectomy Hx of wisdom tooth extraction Social History Social History Smoking status: Former smoker Second hand tobacco smoke exposure: No Smoking end date: 11/24/06 Alcohol intake: never Substance use: never Substance use type: does not use Lack of Transportation: No Lack of Food: Never True Current Housing: I Have Housing Concerned About Future Housing: No Difficulty Paying Gas/Electric Bills: No Difficulty Paying for Meds: No Currently Unemployed: No Education: High School Diploma/GED Difficulty w/ Childcare or Family Care: No Gender identity (if verbalized by the patient): Female Spiritual care concerns: No Agree to blood products: Yes Exam Narrative: APPEARANCE: No acute distress, nontoxic, resting in bed EYES: EOMI HEENT: Normocephalic, atraumatic, OMM RESPIRATORY: No respiratory distress wheezing to the bilateral upper lung edmondson decreased breath sounds in the bases, no rhonchi CARDIOVASCULAR: Regular rate and rhythm without murmurs rubs or gallops. ABDOMINAL: Soft, nontender, nondistended, no rebound or guarding MUSCULOSKELETAl: Moves all extremities. No clubbi
[2023-02-23] MEDS: methylPREDNISolone SOD SUCC 125 MG VIAL IV PUSH (13:48)
[2023-02-23 13:55] LABS: Basophils Percent Auto 0.2 % (0.2-1.2); Hematocrit 38.4 % (37.0-47.0); Hemoglobin 12.7 g/dL (12.0-15.0); Immature Granulocyte Absolute 0.06 K/mm3 (0.00-0.031); Immature Granulocyte Percent A 0.6 % (0-0.5); Lymphocytes Absolute Auto 0.35 K/mm3 (0.9-3.2); Lymphocytes Percent Auto 3.2 % (18.3-44.2); Mean Corpuscular HGB Conc 33.1 g/dl (32-36); Mean Corpuscular Hemoglobin 29.4 pg (26-34); Mean Corpuscular Volume 88.9 fl (80-100); Mean Platelet Volume 9.1 fl (7.4-10.4); Monocytes Absolute Auto 0.7 K/mm3 (0.1-0.6); Monocytes Percent Auto 6.3 % (2.6-8.5); Neutrophils Absolute Auto 9.8 K/mm3 (1.3-6.7); Neutrophils Percent Auto 89.7 % (45.5-73.1); Platelet Count Result 316 k/mm3 (150-375); Red Blood Count 4.32 M/mm3 (4.2-5.4); White Blood Count 10.9 K/mm3 (4.5-10.0)
[2023-02-23] MEDS: IPRATROPIUM BR 0.02% INH SOLN 0.5 MG/2.5 ML VIAL INHALATION ×2 (14:02→21:13)
[2023-02-23] MEDS: LEVALBUTEROL NEB 1.25 MG/3 ML INHALATION (14:02)
[2023-02-23 14:06] LABS: Alanine Aminotransferase 26 U/L (6-35); Albumin Level 3.6 g/dL (3.5-5.1); Alkaline Phosphatase 97 U/L (38-126); Anion Gap 6 mmol/L (8-16); Aspartate Amino Transferase 31 U/L (14-36); Bilirubin,Total 1.1 mg/dL (0.2-1.3); Blood Urea Nitrogen 11 mg/dL (7-17); Calcium 8.2 mg/dL (8.4-10.2); Carbon Dioxide 31 mmol/L (22-30); Chloride 90 mmol/L (98-107); Estimated CRCL calculation 71 ml/min; Estimated Glomerular Filt Rate > 60; Glucose 102 mg/dL (65-110); INR 1.2; Partial Thromboplastin Time 32.2 SECONDS (22.3-36.8); Potassium 3.8 mmol/L (3.4-5.0); Prothrombin Time 14.6 Seconds (11.1-14.7); Sodium 127 mmol/L (137-145)
[2023-02-23 14:49] LABS: Influenza A QL RT-PCR Negative (Negative); Influenza B QL RT-PCR Negative (Negative); RSV RNA, RT-PCR Negative (Negative); SARS-CoV-2 RNA PCR Positive
--- NOTE | 2023-02-23 16:26 | PM.IMHP ---
H&P: HPI History of Present Illness Date/Time: 02/23/23 16:26 Chief Complaint: Shortness of breath Narrative: This is a 77 year old female patient who came to the emergency room with shortness of breath. The patient stated that she felt poorly this past Friday with a cough and nonproductive cough. The patient has been feeling tired. She to go home COVID test on Friday that was positive and was started on outpatient therapy. The patient has been on room air since then. The patient has been more progressively shortness of breath and therefore came to the emergency room for further evaluation. The patient was found have O2 saturation of 88% on 2 L per nasal cannula. The patient was placed on oxygen at 2 L per nasal cannula. The patient denies any fever chills. She has no chest pain, abdominal pain or nausea vomiting. Her white count was found to be 10.9. Sodium 127. The patient stated that she feels dehydrated and has not been eating or drinking very well. The patient was also positive for COVID hears well. Chest CTA was read as No central emboli detected. Motion degraded study such that subsegmental and small nonocclusive segmental emboli could be missed. Pulmonary opacities may represent atypical infection, possibly with a component of aspiration The patient was able to eat and drink without any difficulty in front of me. She was swallowing the food and drinking without difficulty. Chest x-ray was read as no acute cardiopulmonary disease. The patient was started on Solu-Medrol and given nebulizer treatments. The patient is being admitted to inpatient status on the date of service of 02/23/2023. Review of Systems Review of Systems: All systems reviewed & are unremarkable except as noted in HPI and below Constitutional: Constitutional: Reports as per HPI and Reports no additional constitutional complaints Eyes: Eyes: Reports as per HPI and Reports no additional eye complaints ENT: Reports system reviewed and no additional complaints, except as documented and Reports Normal hearing present Cardiovascular: Cardiovascular: Reports no additional cardiovascular complaints Respiratory: Respiratory: Reports no additional respiratory complaints and Reports no additional respiratory complaints Gastrointestinal: Gastrointestinal: Reports as per HPI and Reports no additional gastrointestinal complaints Musculoskeletal: Musculoskeletal: Reports no additional musculoskeletal complaints Integumentary/Breasts: Skin/Breast: Reports system reviewed and no additional complaints, except as docu and Reports as per HPI Neurologic: Reports system reviewed and no additional complaints, except as documented, Reports as per HPI and Reports Normal hearing present Psychiatric: Psychiatric: Reports no additional psychiatric complaints and Reports as per HPI Endocrine: Endocrine: Reports no additional endocrine complaints Hematologic/Lymphatic: Hematologic/Lymphatic: Reports no additional hematologic/lymphatic complaints Allergic/Immunologic: Allergic/Immunologic: Reports no additional allergic/immunologic complaints [facility] Past Medical History Medical History Cataract Dyslipidemia Environmental allergies Essential (primary) hypertension GERD without esophagitis History of esophageal stricture 12/2016 History of leukocytosis 2014 Hyperlipidemia Osteoarthritis of both knees Osteoarthritis of right knee Osteopenia Postmenopausal state TMJ (temporomandibular joint disorder) Surgical History Surgical History History of appendectomy History of endoscopy 01/20/12 02/25/18 History of hysterectomy 03/07/1998 History of left hip replacement 05/12/18 History of right hip replacement 06/15/19 History of right knee joint replacement 12/2019 Hx of tonsillectomy Hx of wisdom tooth extraction Family History Family History (Reviewe
--- NOTE | 2023-02-23 17:04 | ADMGEN ---
This patient, Jannet Smiley, was admitted to [facility] Room 327-01. Patient/family oriented to hospital policies and general routines including ID bracelet, bed and alarms, visiting hours, pain management, procedures, bathroom and other care routines, personal items, smoking policy, room service/diet, and visiting hours. Information on how to activate the Rapid Response Team has been discussed. Patient/Family are encouraged to report perceived risks to care and to ask questions if they do not understand what they are told or what they should do.
[2023-02-23] MEDS: LEVALBUTEROL NEB 1.25 MG/3 ML 0.63 MG INHALATION (21:13)
[2023-02-23] MEDS: PIPERACILLIN/TAZOBACTAM SOD 4.5 GM in SODIUM CHLORIDE 0.9% IV 100 ML 200 ML IVPB (23:05)
[2023-02-23] MEDS: methylPREDNISolone SOD SUCC 125 MG VIAL 60 MG IV PUSH (23:05)
[2023-02-24] VITALS (16 sets, daily range): BP systolic 105–129; BP diastolic 60–69; PULSE 74–93; RESP 16–20; TEMP 35.9–36.4; O2SAT 92–94
[2023-02-24] MEDS: LEVALBUTEROL NEB 1.25 MG/3 ML 0.63 MG INHALATION ×4 (03:07→21:06)
[2023-02-24] MEDS: IPRATROPIUM BR 0.02% INH SOLN 0.5 MG/2.5 ML VIAL INHALATION ×4 (03:07→21:06)
[2023-02-24] MEDS: methylPREDNISolone SOD SUCC 125 MG VIAL 60 MG IV PUSH ×3 (05:25→20:40)
[2023-02-24] MEDS: PIPERACILLIN/TAZOBACTAM SOD 4.5 GM in SODIUM CHLORIDE 0.9% IV 100 ML 200 ML IVPB ×4 (05:27→20:40)
[2023-02-24 07:41] LABS: Hematocrit 35.5 % (37.0-47.0); Hemoglobin 11.6 g/dL (12.0-15.0); Immature Granulocyte Absolute 0.07 K/mm3 (0.00-0.031); Immature Granulocyte Percent A 0.8 % (0-0.5); Lymphocytes Absolute Auto 0.41 K/mm3 (0.9-3.2); Lymphocytes Percent Auto 4.4 % (18.3-44.2); Mean Corpuscular HGB Conc 32.7 g/dl (32-36); Mean Corpuscular Hemoglobin 28.9 pg (26-34); Mean Corpuscular Volume 88.3 fl (80-100); Mean Platelet Volume 9.3 fl (7.4-10.4); Monocytes Absolute Auto 0.3 K/mm3 (0.1-0.6); Monocytes Percent Auto 2.7 % (2.6-8.5); Neutrophils Absolute Auto 8.6 K/mm3 (1.3-6.7); Neutrophils Percent Auto 92.1 % (45.5-73.1); Platelet Count Result 323 k/mm3 (150-375); Red Blood Count 4.02 M/mm3 (4.2-5.4); White Blood Count 9.3 K/mm3 (4.5-10.0)
[2023-02-24 07:51] LABS: Alanine Aminotransferase 26 U/L (6-35); Albumin Level 3.5 g/dL (3.5-5.1); Alkaline Phosphatase 86 U/L (38-126); Anion Gap 4 mmol/L (8-16); Aspartate Amino Transferase 25 U/L (14-36); Bilirubin,Total 0.7 mg/dL (0.2-1.3); Blood Urea Nitrogen 6 mg/dL (7-17); Calcium 8.4 mg/dL (8.4-10.2); Carbon Dioxide 35 mmol/L (22-30); Chloride 93 mmol/L (98-107); Estimated CRCL calculation 87 ml/min; Estimated Glomerular Filt Rate > 60; Glucose 161 mg/dL (65-110); Potassium 3.5 mmol/L (3.4-5.0); Sodium 132 mmol/L (137-145)
[2023-02-24] MEDS: VERAPAMIL HCL ER 240 MG TABLET.ER PO (08:30)
[2023-02-24] MEDS: DICLOFENAC SOD 75 MG TABLET.EC PO (08:30)
[2023-02-24] MEDS: MULTIVITAMINS THERAPEUTIC TAB (*BKC) 1 TABLET PO (08:30)
[2023-02-24] MEDS: estradioL 1 MG TABLET PO (08:30)
[2023-02-24] MEDS: LOSARTAN POTASSIUM 50 MG TABLET PO (08:30)
[2023-02-24] MEDS: CHOLECALCIFEROL 1,000 UNITS TABLET 1000 UNITS PO (08:30)
[2023-02-24] MEDS: PANTOPRAZOLE 40 MG TABLET PO (08:30)
--- NOTE | 2023-02-24 16:08 | PM.IMPN ---
Progress Note: A&P Assessment and Plan (1) Acute respiratory failure with hypoxia: Code(s): J96.01 - Acute respiratory failure with hypoxia Status: Acute Assessment and Plan: The patient was placed on oxygen at 2 L per nasal cannula She was satting 88% on room air and now she is on oxygen at 1 L per nasal cannula. No central emboli detected. Motion degraded study such that subsegmental and small nonocclusive segmental emboli could be missed. Pulmonary opacities may represent atypical infection, possibly with a component of aspiration Continue Solumedrol and IV Zosyn for possible aspiration pneumonia CXR shows - No acute cardiopulmonary disease. Pt is improving down to 1 lite of oxygen continue to wean off oxygen. (2) COVID-19: Code(s): U07.1 - COVID-19 Status: Acute Assessment and Plan: The patient is on paxlovid Continue with Solu-Medrol (3) Hyperlipidemia: Code(s): E78.5 - Hyperlipidemia, unspecified Status: Acute Assessment and Plan: Her statin is on hold while she is on Paxlovid (4) GERD without esophagitis: Code(s): K21.9 - Gastro-esophageal reflux disease without esophagitis Status: Acute Assessment and Plan: Continue with omeprazole (5) Essential (primary) hypertension: Code(s): I10 - Essential (primary) hypertension Status: Acute Assessment and Plan: Continue with losartan and continue to monitor renal function. (6) Dyslipidemia: Code(s): E78.5 - Hyperlipidemia, unspecified Status: Acute Assessment and Plan: Holding statin at this time. Subjective Date/time seen: 02/24/23 16:08 77 year old female patient who came to the emergency room with shortness of breath.? The patient stated that she felt poorly this past Friday with a cough and nonproductive cough.? The patient has been feeling tired.? She to go home COVID test on Friday that was positive and was started on outpatient therapy.? The patient has been on room air since then.? The patient has been more progressively shortness of breath and therefore came to the emergency room for further evaluation.? The patient was found have O2 saturation of 88% on 2 L per nasal cannula.? The patient was placed on oxygen at 2 L per nasal cannula. Pt presently on 1 liter of oxygen doing better sodium is 132 creat is 0.4, bun is 6 Review of Systems Review of Systems: mild sob and cough Exam Const: General: alert, awake and Physically active Other: elderly chronically ill and frail on 1 liter of oxygen Chest: Chest palpation & inspection: normal inspection of the chest Resp: Effort & Inspection: normal respiratory effort Auscultation: clear to auscultation bilaterally Cardio: Palpation: normal PMI Rate: regular rate Rhythm: regular rhythm Heart sounds: S1 normal heart sound present and S2 normal heart sound present Peripheral pulses: Peripheral pulses 2+ throughout GI: Inspection: normal to inspection Auscultation: normal bowel sounds Rectal Exam: deferred Back/Spine/Pelvis: Cervical Spine: cervical ROM normal Skin: General skin exam: normal color Lesions: no lesions Rashes: no rashes Trauma: no lacerations or abrasions Wounds: no wounds Hair: normal Nails: normal Neuro: General: oriented to person, oriented to place, oriented to time and patient oriented x3 Cranial nerves: Yes Equal, round and reactive pupils present, Yes Normal hearing present and Yes hard of hearing Cognition (Neuro): normal cognition Speech: normal speech Motor exam (neuro): 5/5 motor strength present throughout Sensory Exam: normal sensation Psych: Appearance: grossly normal Mental Status: mental status grossly normal Speech and movement: Normal speech and movement present Objective Data Vital Signs Vital Signs: Vital Signs - 24 hr 02/23/23 20:26 02/23/23 21:14 02/23/23 21:30 Temperature 36.6 C Pulse Rate 84 78 84 Respiratory Rate 16 20 20 Blood
[2023-02-25] VITALS (16 sets, daily range): BP systolic 123–137; BP diastolic 55–79; PULSE 88–121; RESP 14–20; TEMP 36.1–36.6; O2SAT 87–96
[2023-02-25] MEDS: LEVALBUTEROL NEB 1.25 MG/3 ML 0.63 MG INHALATION ×4 (02:49→19:36)
[2023-02-25] MEDS: IPRATROPIUM BR 0.02% INH SOLN 0.5 MG/2.5 ML VIAL INHALATION ×4 (02:50→19:36)
[2023-02-25] MEDS: PIPERACILLIN/TAZOBACTAM SOD 4.5 GM in SODIUM CHLORIDE 0.9% IV 100 ML 200 ML IVPB ×4 (03:07→20:45)
[2023-02-25] MEDS: methylPREDNISolone SOD SUCC 125 MG VIAL 60 MG IV PUSH ×3 (05:36→20:31)
[2023-02-25 08:20] LABS: Anion Gap 3 mmol/L (8-16); Blood Urea Nitrogen 10 mg/dL (7-17); Calcium 8.4 mg/dL (8.4-10.2); Carbon Dioxide 35 mmol/L (22-30); Chloride 93 mmol/L (98-107); Estimated CRCL calculation 71 ml/min; Estimated Glomerular Filt Rate > 60; Glucose 142 mg/dL (65-110); Potassium 3.5 mmol/L (3.4-5.0); Sodium 131 mmol/L (137-145)
[2023-02-25] MEDS: VERAPAMIL HCL ER 240 MG TABLET.ER PO (10:20)
[2023-02-25] MEDS: DICLOFENAC SOD 75 MG TABLET.EC PO (10:20)
[2023-02-25] MEDS: MULTIVITAMINS THERAPEUTIC TAB (*BKC) 1 TABLET PO (10:20)
[2023-02-25] MEDS: LOSARTAN POTASSIUM 50 MG TABLET PO (10:20)
[2023-02-25] MEDS: CHOLECALCIFEROL 1,000 UNITS TABLET 1000 UNITS PO (10:20)
[2023-02-25] MEDS: PANTOPRAZOLE 40 MG TABLET PO (10:20)
[2023-02-25] MEDS: estradioL 1 MG TABLET PO (10:20)
--- NOTE | 2023-02-25 15:22 | PM.IMPN ---
Progress Note: A&P Assessment and Plan (1) Acute respiratory failure with hypoxia: Code(s): J96.01 - Acute respiratory failure with hypoxia Status: Acute (2) COVID-19: Code(s): U07.1 - COVID-19 Status: Acute Plan 77 year old female patient who came to the emergency room with shortness of breath.? The patient stated that she felt poorly this past Friday with a cough and nonproductive cough.? Tested positive for COVID test on Friday and was started on outpatient therapy.? The patient has been on room air since then.? The patient has been more progressively shortness of breath and therefore came to the emergency room for further evaluation.? The patient was found have O2 saturation of 88% on 2 L per nasal cannula.? The patient was placed on oxygen at 2 L per nasal cannula. 1)Acute Hypoxic Resp Failure: 2/ COVID PNA C/w O2 support, currently on 1L s/p paxolovid c/w Solumderol C/w bronchodilators c/w Zosyn Will need six min walk prior to discharge 2)HTN:c/w losartan 3)GERD:C/w Omeprazole 4)DVT ppx:Hep SQ 5)Code:Full 6)Dispo:anticipate discharge in AM if continues to improve Time Spent With Patient Time with patient: 15 - 25 minutes Subjective Date/time seen: 02/25/23 15:22 Interval history: feeling better Still on 1L of O2 support, eager to go home Review of Systems Review of Systems: All systems reviewed & are unremarkable except as noted in HPI and below Exam Const: General: comfortable and no acute distress HENMT: Mouth: Yes moist mucous membranes Eyes: General: appearance normal, both eyes and all related structures Sclera: sclerae normal Neck: Neck: supple Resp: Effort & Inspection: normal respiratory effort Other: occasional wheezing present Cardio: Rate: regular rate Rhythm: regular rhythm GI: GI Palp: Yes Soft to palpation Auscultation: normal bowel sounds Skin: General skin exam: normal color Extrem: General: normal to inspection Psych: Mental Status: mental status grossly normal Objective Data Vital Signs Vital Signs: Vital Signs - 24 hr 02/24/23 16:01 02/24/23 16:00 02/24/23 21:06 Temperature 97.0 F L Pulse Rate 74 93 Respiratory Rate 18 20 Blood Pressure 111/65 Pulse Oximetry 92 92 Oxygen Delivery Nasal Cannula Oxygen Flow Rate 1 02/24/23 21:19 02/24/23 22:00 02/24/23 20:00 Temperature 97.5 F L Pulse Rate 91 87 Respiratory Rate 20 18 Blood Pressure 129/64 Pulse Oximetry 93 93 Oxygen Delivery Nasal Cannula Oxygen Flow Rate 1 02/25/23 02:50 02/25/23 03:05 02/25/23 06:00 Temperature 97.4 F L Pulse Rate 88 90 94 Respiratory Rate 20 20 14 Blood Pressure 123/55 L Pulse Oximetry 96 Oxygen Delivery Oxygen Flow Rate 02/25/23 07:52 02/25/23 07:52 02/25/23 08:08 Temperature Pulse Rate 100 Respiratory Rate 20 20 Blood Pressure Pulse Oximetry 93 Oxygen Delivery Nasal Cannula Oxygen Flow Rate 1 02/25/23 14:00 02/25/23 14:29 02/25/23 14:43 Temperature 97.0 F L Pulse Rate 90 92 91 Respiratory Rate 20 20 20 Blood Pressure 130/65 Pulse Oximetry 92 Oxygen Delivery Oxygen Flow Rate Intake/Output Intake/Output: Intake & Output 02/22/23 02/23/23 02/24/23 02/25/23 23:59 23:59 23:59 23:59 Intake Total 544 2590 760 Output Total 250 1850 1000 Balance 294 740 -240 Meds/Results Medications: Active Medications Generic Name Dose Route Start Last Admin Trade Name Freq PRN Reason Stop Dose Admin Azelastine HCl 1 spray 02/24/23 10:36 Azelastine Hcl Nasal 0.1% 137 Mcg/Spr 30 Ml Btl NASAL 03/26/23 10:35 BID PRN Nasal Congestion Diclofenac Sodium 75 mg 02/24/23 09:00 02/25/23 10:20 Diclofenac Sod 75 Mg Tablet.Ec PO 75 mg DAILY DEMIAN Administration Estradiol 1 mg 02/24/23 09:00 02/25/23 10:20 Estradiol 1 Mg Tablet PO 1 mg DAILY DEMIAN Administration Fluticasone Propionate 1 spray 02/23/23 20:12 Fluticaso
--- NOTE | 2023-02-25 16:04 | HOMEO2EVAL ---
Evaluation was performed at [facility] Home Oxygen Evaluation RC: Home Oxygen (O2) Evaluation Start: 02/25/23 09:02 Freq: ONCE Status: Active Protocol: RPE Activity Type Activity Date Activity User E-sign Co-sign Detail Recorded Client Recorded Date Recorded By Document 02/25/23 15:45 LIANNA [email or web address] 02/25/23 16:04 LIANNA Document 02/25/23 15:46 LIANNA [email or web address] 02/25/23 16:04 LIANNA Document 02/25/23 15:50 LIANNA [email or web address] 02/25/23 16:04 LIANNA Document 02/25/23 16:00 LIANNA [id number] 02/25/23 16:04 LIANNA 02/25/23 02/25/23 02/25/23 15:45 15:46 15:50 Home O2 Evaluation [Oxygen] -Test Phase Resting Resting Exercise -Oxygen Delivery Room Air Nasal Cannula Nasal Cannula -Oxygen Flow Rate (L/min) 1 1 [Pulse Oximetry] -Pulse Oximetry (90-100 %) 87 L 93 90 [Pulse Rate] -Pulse Rate (60-100 beats/min) 98 121 H [Comments] -Home Oxygen Evaluation Comments PT REQUIRES 1 L AT REST AND WITH ACTIVITY [Charges] -Treatment Charges O2 Evaluation - Inpatient 02/25/23 16:00 Home O2 Evaluation [Oxygen] -Test Phase Resting -Oxygen Delivery Nasal Cannula -Oxygen Flow Rate (L/min) 1 [Pulse Oximetry] -Pulse Oximetry (90-100 %) 93 [Pulse Rate] -Pulse Rate (60-100 beats/min) 96 [Comments] -Home Oxygen Evaluation Comments [Charges] -Treatment Charges
--- NOTE | 2023-02-25 16:15 | PCRCNOTE ---
WILL ARRANGE HOME O2 AT 1 L REST AND ACTIVITY FOR D/C ON 02-26-23
[2023-02-25] MEDS: HEPARIN SODIUM 5,000 UNITS/ML VIAL 5000 UNITS SUB-Q (20:29)
[2023-02-25] MEDS: FLUTICASONE PROPIONATE 0.05% NA SPR 16 GM BTL (*BKC) 1 SPRAY NASAL (20:31)
[2023-02-25] MEDS: SIMVASTATIN 20 MG TABLET 40 MG PO (23:18)
[2023-02-26] VITALS (12 sets, daily range): BP systolic 104–136; BP diastolic 65–74; PULSE 76–95; RESP 16–20; TEMP 36.2–36.6; O2SAT 90–95
[2023-02-26] MEDS: IPRATROPIUM BR 0.02% INH SOLN 0.5 MG/2.5 ML VIAL INHALATION ×4 (01:47→20:22)
[2023-02-26] MEDS: LEVALBUTEROL NEB 1.25 MG/3 ML 0.63 MG INHALATION ×4 (01:47→20:22)
[2023-02-26] MEDS: PIPERACILLIN/TAZOBACTAM SOD 4.5 GM in SODIUM CHLORIDE 0.9% IV 100 ML 200 ML IVPB ×3 (04:17→14:50)
[2023-02-26] MEDS: methylPREDNISolone SOD SUCC 125 MG VIAL 60 MG IV PUSH ×3 (06:01→21:05)
[2023-02-26 08:06] LABS: Basophils Percent Auto 0.1 % (0.2-1.2); Hematocrit 35.7 % (37.0-47.0); Hemoglobin 11.6 g/dL (12.0-15.0); Immature Granulocyte Absolute 0.24 K/mm3 (0.00-0.031); Immature Granulocyte Percent A 1.7 % (0-0.5); Lymphocytes Absolute Auto 0.82 K/mm3 (0.9-3.2); Lymphocytes Percent Auto 5.9 % (18.3-44.2); Mean Corpuscular HGB Conc 32.5 g/dl (32-36); Mean Corpuscular Hemoglobin 29.1 pg (26-34); Mean Corpuscular Volume 89.7 fl (80-100); Monocytes Absolute Auto 0.5 K/mm3 (0.1-0.6); Monocytes Percent Auto 3.4 % (2.6-8.5); Neutrophils Absolute Auto 12.3 K/mm3 (1.3-6.7); Neutrophils Percent Auto 88.9 % (45.5-73.1); Platelet Count Result 410 k/mm3 (150-375); Red Blood Count 3.98 M/mm3 (4.2-5.4); Red Cell Distribution Width 13.1 % (11.5-14.5); White Blood Count 13.8 K/mm3 (4.5-10.0)
[2023-02-26 08:19] LABS: Potassium 3.8 mmol/L (3.4-5.0)
[2023-02-26 08:25] LABS: Anion Gap 2 mmol/L (8-16); Blood Urea Nitrogen 15 mg/dL (7-17); Calcium 8.3 mg/dL (8.4-10.2); Carbon Dioxide 35 mmol/L (22-30); Chloride 94 mmol/L (98-107); Estimated CRCL calculation 60 ml/min; Estimated Glomerular Filt Rate > 60; Glucose 140 mg/dL (65-110); Sodium 131 mmol/L (137-145)
[2023-02-26] MEDS: estradioL 1 MG TABLET PO (08:43)
[2023-02-26] MEDS: HEPARIN SODIUM 5,000 UNITS/ML VIAL 5000 UNITS SUB-Q ×2 (08:43→21:04)
[2023-02-26] MEDS: DICLOFENAC SOD 75 MG TABLET.EC PO (08:43)
[2023-02-26] MEDS: LOSARTAN POTASSIUM 50 MG TABLET PO (08:43)
[2023-02-26] MEDS: VERAPAMIL HCL ER 240 MG TABLET.ER PO (08:43)
[2023-02-26] MEDS: CHOLECALCIFEROL 1,000 UNITS TABLET 1000 UNITS PO (08:43)
[2023-02-26] MEDS: PANTOPRAZOLE 40 MG TABLET PO (08:43)
[2023-02-26] MEDS: MULTIVITAMINS THERAPEUTIC TAB (*BKC) 1 TABLET PO (08:43)
[2023-02-26 09:02] LABS: Hemoglobin A1C 5.7 % (<5.7)
--- NOTE | 2023-02-26 11:35 | PCRCNOTE ---
HOME O2 ORDER FAXED TO [facility]. SPOKE WITH MAURY AND SHE CONFIRMED TANK WILL BE DELIVERED TO ROOM TODAY.
--- NOTE | 2023-02-26 11:59 | PM.IMPN ---
Progress Note: A&P Assessment and Plan (1) Acute respiratory failure with hypoxia: Code(s): J96.01 - Acute respiratory failure with hypoxia Status: Acute (2) COVID-19: Code(s): U07.1 - COVID-19 Status: Acute Plan 77 year old female patient who came to the emergency room with shortness of breath.? The patient stated that she felt poorly this past Friday with a cough and nonproductive cough.? Tested positive for COVID test on Friday and was started on outpatient therapy.? The patient has been on room air since then.? The patient has been more progressively shortness of breath and therefore came to the emergency room for further evaluation.? The patient was found have O2 saturation of 88% on 2 L per nasal cannula.? The patient was placed on oxygen at 2 L per nasal cannula. 1)Acute Hypoxic Resp Failure: 2/ COVID PNA C/w O2 support, currently on 1L s/p paxolovid c/w Solumderol C/w bronchodilators c/w Zosyn Will need six min walk prior to discharge 2)HTN:c/w losartan 3)GERD:C/w Omeprazole 4)DVT ppx:Hep SQ 5)Code:Full 6)Dispo:anticipate discharge in AM if continues to improve Subjective Date/time seen: 02/26/23 11:59 No complaints Exam Const: General: cooperative, healthy appearing, comfortable, no acute distress, well developed, alert, awake, Physically active, average body habitus and well nourished Nutritional Appearance: average body habitus and well nourished Orientation/consciousness: oriented to person, oriented to place, oriented to time and patient oriented x3 Limitations: no limitations Other: elderly chronically ill and frail on 1 liter of oxygen HENMT: Head: normal to inspection, No palpable skull fracture present, normocephalic, atraumatic and abrasion Ears: external ears normal and hearing grossly impaired Face/Nose/Sinus: Normal external nose present and Normal nares present Mouth: Yes moist mucous membranes Eyes: General: appearance normal, both eyes and all related structures Alignment and Position: alignment normal Periorbital: periorbital findings normal Eyelids: eyelids normal Sclera: sclerae normal Pupils: Equal, round and reactive pupils present EOM: EOMs intact bilaterally Neck: Neck: normal visual inspection, full ROM, no lymphadenopathy, trachea midline and supple Chest: Chest palpation & inspection: normal inspection of the chest Resp: Effort & Inspection: normal respiratory effort Auscultation: clear to auscultation bilaterally Other: occasional wheezing present Cardio: Palpation: normal PMI Rate: regular rate Rhythm: regular rhythm Heart sounds: S1 normal heart sound present and S2 normal heart sound present Peripheral pulses: Peripheral pulses 2+ throughout GI: Inspection: normal to inspection Auscultation: normal bowel sounds Rectal Exam: deferred Back/Spine/Pelvis: Cervical Spine: cervical ROM normal Skin: General skin exam: normal color Lesions: no lesions Rashes: no rashes Trauma: no lacerations or abrasions Wounds: no wounds Hair: normal Nails: normal Neuro: General: oriented to person, oriented to place, oriented to time and patient oriented x3 Cranial nerves: Yes Equal, round and reactive pupils present, Yes Normal hearing present and Yes hard of hearing Cognition (Neuro): normal cognition Speech: normal speech Motor exam (neuro): 5/5 motor strength present throughout Sensory Exam: normal sensation Extrem: General: normal to inspection Right upper extremity: normal to inspection and shoulder/upper arm Left upper extremity: normal to inspection and shoulder/upper arm Right lower extremity: normal to inspection Left lower extremity: normal to inspection Psych: Appearance: grossly normal Mental Status: mental status grossly normal Speech and movement: Normal speech and movement present Affect: normal affect Attitude: cooperative Thought process: Normal thought process present Insight: Good insight present (Psych) [place]
[2023-02-26] MEDS: SIMVASTATIN 20 MG TABLET 40 MG PO (17:49)
[2023-02-26] MEDS: ASPIRIN 81 MG ENTERIC TABLET PO (17:49)
[2023-02-26] MEDS: FLUTICASONE PROPIONATE 0.05% NA SPR 16 GM BTL (*BKC) 1 SPRAY NASAL (21:04)
[2023-02-27 00:31] VITALS: O2SAT 94
[2023-02-27] MEDS: LEVALBUTEROL NEB 1.25 MG/3 ML 0.63 MG INHALATION ×2 (02:38→08:08)
[2023-02-27] MEDS: IPRATROPIUM BR 0.02% INH SOLN 0.5 MG/2.5 ML VIAL INHALATION ×2 (02:38→08:08)
[2023-02-27 02:39] VITALS: PULSE 79; RESP 18
[2023-02-27 06:00] VITALS: BP 149/75; PULSE 94; RESP 15; TEMP 36.6; O2SAT 91
[2023-02-27 08:10] VITALS: PULSE 80; RESP 18; O2SAT 93
[2023-02-27 08:29] VITALS: PULSE 91; RESP 18
[2023-02-27] MEDS: methylPREDNISolone SOD SUCC 125 MG VIAL 60 MG IV PUSH (09:26)
[2023-02-27] MEDS: DICLOFENAC SOD 75 MG TABLET.EC PO (09:27)
[2023-02-27] MEDS: CHOLECALCIFEROL 1,000 UNITS TABLET 1000 UNITS PO (09:27)
[2023-02-27] MEDS: VERAPAMIL HCL ER 240 MG TABLET.ER PO (09:27)
[2023-02-27] MEDS: LOSARTAN POTASSIUM 50 MG TABLET PO (09:27)
[2023-02-27] MEDS: estradioL 1 MG TABLET PO (09:27)
[2023-02-27] MEDS: PANTOPRAZOLE 40 MG TABLET PO (09:27)
[2023-02-27] MEDS: MULTIVITAMINS THERAPEUTIC TAB (*BKC) 1 TABLET PO (09:27)
--- NOTE | 2023-02-27 10:35 | PM.DS ---
DS: Admitting Diagnosis Discharge Date February 27, 2023 Admitting Diagnosis COVID DS: Discharge Diagnosis Discharge Diagnosis (1) Acute respiratory failure with hypoxia: Code(s): J96.01 - Acute respiratory failure with hypoxia Status: Acute (2) COVID-19: Code(s): U07.1 - COVID-19 Status: Acute Plan 77 year old female patient who came to the emergency room with shortness of breath.? The patient stated that she felt poorly this past Friday with a cough and nonproductive cough.? Tested positive for COVID test on Friday and was started on outpatient therapy.? The patient has been on room air since then.? The patient has been more progressively shortness of breath and therefore came to the emergency room for further evaluation.? The patient was found have O2 saturation of 88% on 2 L per nasal cannula.? The patient was placed on oxygen at 2 L per nasal cannula. 1)Acute Hypoxic Resp Failure: 2/2 COVID PNA C/w O2 support, currently on 1L s/p paxolovid c/w Solumderol C/w bronchodilators c/w Zosyn Will need six min walk prior to discharge 2)HTN:c/w losartan 3)GERD:C/w Omeprazole 4)DVT ppx:Hep SQ 5)Code:Full 6)Dispo:anticipate discharge in AM if continues to improve DS: Summary Hospital Course Hospital Course: Patient was admitted for COVID and treated conservatively. She has done exceptionally well. She will be discharged on dexamethasone and 1L of oxygen. Otherwise her medical problems have stabilized she can be discharged home. Follow-up primary care physician Time Spent with Patient Time attestation: Total time spent providing and/or coordinating discharge services: Exam Const: General: cooperative, healthy appearing, comfortable, no acute distress, well developed, alert, awake, Physically active, average body habitus and well nourished Nutritional Appearance: average body habitus and well nourished Orientation/consciousness: oriented to person, oriented to place, oriented to time and patient oriented x3 Limitations: no limitations Other: elderly chronically ill and frail on 1 liter of oxygen HENMT: Head: normal to inspection, No palpable skull fracture present, normocephalic, atraumatic and abrasion Ears: external ears normal and hearing grossly impaired Face/Nose/Sinus: Normal external nose present and Normal nares present Mouth: Yes moist mucous membranes Eyes: General: appearance normal, both eyes and all related structures Alignment and Position: alignment normal Periorbital: periorbital findings normal Eyelids: eyelids normal Sclera: sclerae normal Pupils: Equal, round and reactive pupils present EOM: EOMs intact bilaterally Neck: Neck: normal visual inspection, full ROM, no lymphadenopathy, trachea midline and supple Chest: Chest palpation & inspection: normal inspection of the chest Resp: Effort & Inspection: normal respiratory effort Auscultation: clear to auscultation bilaterally Other: occasional wheezing present Cardio: Palpation: normal PMI Rate: regular rate Rhythm: regular rhythm Heart sounds: S1 normal heart sound present and S2 normal heart sound present Peripheral pulses: Peripheral pulses 2+ throughout GI: Inspection: normal to inspection Auscultation: normal bowel sounds Rectal Exam: deferred Back/Spine/Pelvis: Cervical Spine: cervical ROM normal Skin: General skin exam: normal color Lesions: no lesions Rashes: no rashes Trauma: no lacerations or abrasions Wounds: no wounds Hair: normal Nails: normal Neuro: General: oriented to person, oriented to place, oriented to time and patient oriented x3 Cranial nerves: Yes Equal, round and reactive pupils present, Yes Normal hearing present and Yes hard of hearing Cognition (Neuro): normal cognition Speech: normal speech Motor exam (neuro): 5/5 motor strength present throughout Sensory Exam: normal sensation Extrem: General: normal to inspection Right upper extremity: normal to inspection and s
== END 2023-02-27 12:40 | disposition home or self-care (01) | DRG 177 ==
LOC: ANHED 15:04 → ANH3MEDSUR 16:03
PROVIDERS: Emergency Medicine; Family Medicine; Internal Medicine; Admitting Provider Family Medicine; Emergency Provider Emergency Medicine; PCP Family Medicine; Visit Provider Chiropractor
DX: U07.1 COVID-19 (principal); J12.82 Pneumonia due to coronavirus disease 2019; J96.01 Acute respiratory failure with hypoxia; I10 Essential (primary) hypertension; K21.9 Gastro-esophageal reflux disease without esophagitis; E78.5 Hyperlipidemia, unspecified; M17.0 Bilateral primary osteoarthritis of knee; Z96.643 Presence of artificial hip joint, bilateral; Z96.651 Presence of right artificial knee joint; Z90.710 Acquired absence of both cervix and uterus; Z87.891 Personal history of nicotine dependence; Z90.49 Acquired absence of other specified parts of digestive tract
CPT/HCPCS: 36415; 71045; 71275; 80048; 80053; 83036; 85025; 85610; 85730; 87637; 93005; 94618; 94640; 96374; 99285; A9270; G0378; J1644; J2543; J2930; Q9967

== ENCOUNTER 2023-07-17 10:24 | Outpatient (CLI) | payer BC, SELFPAY ==
[2023-07-17 17:22] LABS: Basophils Percent Auto 0.8 % (0.2-1.2); Eosinophils Absolute Auto 0.1 K/mm3 (0-0.3); Eosinophils Percent Auto 2.3 % (0-4.4); Hemoglobin 13.8 g/dL (12.0-15.0); Immature Granulocyte Absolute 0.01 K/mm3 (0.00-0.031); Immature Granulocyte Percent A 0.2 % (0-0.5); Lymphocytes Absolute Auto 0.91 K/mm3 (0.9-3.2); Lymphocytes Percent Auto 19.2 % (18.3-44.2); Mean Corpuscular HGB Conc 30.7 g/dl (32-36); Mean Corpuscular Hemoglobin 27.7 pg (26-34); Mean Corpuscular Volume 90.4 fl (80-100); Mean Platelet Volume 9.8 fl (7.4-10.4); Monocytes Absolute Auto 0.4 K/mm3 (0.1-0.6); Monocytes Percent Auto 8.4 % (2.6-8.5); Neutrophils Absolute Auto 3.3 K/mm3 (1.3-6.7); Neutrophils Percent Auto 69.1 % (45.5-73.1); Platelet Count Result 310 k/mm3 (150-375); Red Blood Count 4.98 M/mm3 (4.2-5.4); Red Cell Distribution Width 13.4 % (11.5-14.5); White Blood Count 4.8 K/mm3 (4.5-10.0)
[2023-07-17 17:28] LABS: Alanine Aminotransferase 18 U/L (6-35); Albumin Level 4.1 g/dL (3.5-5.1); Alkaline Phosphatase 69 U/L (38-126); Anion Gap 4 mmol/L (8-16); Aspartate Amino Transferase 28 U/L (14-36); Bilirubin,Total 0.8 mg/dL (0.2-1.3); Blood Urea Nitrogen 11 mg/dL (7-17); Calcium 8.8 mg/dL (8.4-10.2); Carbon Dioxide 32 mmol/L (22-30); Chloride 98 mmol/L (98-107); Cholesterol 167 mg/dL (0-200); Estimated Glomerular Filt Rate > 60; Glucose 94 mg/dL (65-110); HDL Direct 77 mg/dL; Sodium 134 mmol/L (137-145); Triglycerides 93 mg/dL (<150)
[2023-07-17 17:33] LABS: LDL Cholesterol Direct 72 mg/dL
[2023-07-17 17:35] LABS: Hemoglobin A1C 5.6 % (<5.7)
[2023-07-17 17:38] LABS: Vitamin D 25 Hydroxy 52.3 ng/mL
[2023-07-17 17:51] LABS: Thyroid Stimulating Hormone Reflex 0.821 uIU/mL (0.465-4.68)
[2023-07-17 17:52] LABS: Potassium 4.5 mmol/L (3.4-5.0)
== END 2023-07-17 10:25 | disposition home or self-care (01) ==
PROVIDERS: PCP Family Medicine; Visit Provider Family Medicine
DX: R73.03 Prediabetes (principal); I10 Essential (primary) hypertension; R41.89 Other symptoms and signs involving cognitive functions and awareness; R56.9 Unspecified convulsions; E55.9 Vitamin D deficiency, unspecified; Z00.00 Encounter for general adult medical examination without abnormal findings; E78.5 Hyperlipidemia, unspecified; E53.8 Deficiency of other specified B group vitamins
CPT/HCPCS: 36415; 80053; 80061; 82306; 82607; 83036; 84443; 85025

== ENCOUNTER 2024-01-15 10:58 | Outpatient (CLI) | payer BC, SELFPAY ==
[2024-01-15 19:11] LABS: Alanine Aminotransferase 20 U/L (6-35); Albumin Level 4.2 g/dL (3.5-5.1); Alkaline Phosphatase 62 U/L (38-126); Anion Gap 4 mmol/L (8-16); Aspartate Amino Transferase 55 U/L (14-36); Blood Urea Nitrogen 13 mg/dL (7-17); Calcium 9.2 mg/dL (8.4-10.2); Carbon Dioxide 32 mmol/L (22-30); Chloride 100 mmol/L (98-107); Cholesterol 181 mg/dL (0-200); Estimated Glomerular Filt Rate > 60; Glucose 85 mg/dL (65-110); HDL Direct 85 mg/dL; Lipase 72 U/L (23-300); Potassium 4.4 mmol/L (3.4-5.0); Sodium 136 mmol/L (137-145); Triglycerides 89 mg/dL (<150)
[2024-01-15 19:22] LABS: LDL Cholesterol Direct 76 mg/dL
[2024-01-15 19:26] LABS: Basophils Absolute Auto 0.1 K/mm3 (0.0-0.1); Basophils Percent Auto 1.2 % (0.2-1.2); Eosinophils Absolute Auto 0.1 K/mm3 (0-0.3); Hematocrit 46.6 % (37.0-47.0); Hemoglobin 14.3 g/dL (12.0-15.0); Lymphocytes Absolute Auto 1.23 K/mm3 (0.9-3.2); Lymphocytes Percent Auto 25.2 % (18.3-44.2); Mean Corpuscular HGB Conc 30.7 g/dl (32-36); Mean Corpuscular Hemoglobin 29.1 pg (26-34); Mean Corpuscular Volume 94.9 fl (80-100); Mean Platelet Volume 10.2 fl (7.4-10.4); Monocytes Absolute Auto 0.4 K/mm3 (0.1-0.6); Neutrophils Absolute Auto 3.1 K/mm3 (1.3-6.7); Neutrophils Percent Auto 63.6 % (45.5-73.1); Platelet Count Result 315 k/mm3 (150-375); Red Blood Count 4.91 M/mm3 (4.2-5.4); Red Cell Distribution Width 13.8 % (11.5-14.5); White Blood Count 4.9 K/mm3 (4.5-10.0)
[2024-01-15 21:35] LABS: Hemoglobin A1C 5.6 % (<5.7)
== END 2024-01-15 10:59 | disposition home or self-care (01) ==
LOC: ANHGOSHLAB 10:59
PROVIDERS: PCP Family Medicine; Visit Provider Nurse Practitioner Family
DX: E78.5 Hyperlipidemia, unspecified (principal); R73.03 Prediabetes
CPT/HCPCS: 36415; 80053; 80061; 83036; 83690; 85025

== ENCOUNTER 2024-02-16 13:33 | Outpatient (CLI) | payer BC, SELFPAY ==
--- NOTE | ~2024-02-16 | MM_ITS ---
EXAMINATION: MM screening jaziel BI w robin HISTORY: Screening mammogram TECHNIQUE: Craniocaudal and mediolateral oblique 3-D tomosynthesis images were obtained and synthetic 2-D images were generated. CAD analysis was submitted and interpreted. COMPARISON: 10/01/2022, 07/19/2021 bilateral screening mammogram examinations BREAST PARENCHYMAL COMPOSITION: There are scattered areas of fibroglandular density. FINDINGS: There is no evidence of suspicious mass, calcification, or architectural distortion to sugg est malignancy in either breast. There has been no suspicious interval change. IMPRESSION: 1. No mammographic evidence of malignancy. 2. Recommend routine screening mammography in one year. BI-RADS Category 1: Negative Reviewed, dictated and finalized at location A.
== END 2024-02-16 13:34 | disposition home or self-care (01) ==
LOC: ANHIMG 13:36
PROVIDERS: PCP Family Medicine; Visit Provider Family Medicine
DX: Z12.31 Encounter for screening mammogram for malignant neoplasm of breast (principal)
CPT/HCPCS: 77063; 77067

== ENCOUNTER 2024-03-04 10:19 | Outpatient (CLI) | payer BC, SELFPAY ==
[2024-03-04 12:11] LABS: Basophils Absolute Auto 0.1 K/mm3 (0.0-0.1); Basophils Percent Auto 1.1 % (0.2-1.2); Eosinophils Absolute Auto 0.1 K/mm3 (0-0.3); Eosinophils Percent Auto 2.4 % (0-4.4); Hematocrit 45.6 % (37.0-47.0); Hemoglobin 14.5 g/dL (12.0-15.0); Immature Granulocyte Absolute 0.01 K/mm3 (0.00-0.031); Immature Granulocyte Percent A 0.2 % (0-0.5); Lymphocytes Absolute Auto 1.47 K/mm3 (0.9-3.2); Lymphocytes Percent Auto 26.9 % (18.3-44.2); Mean Corpuscular HGB Conc 31.8 g/dl (32-36); Mean Corpuscular Hemoglobin 29.6 pg (26-34); Mean Corpuscular Volume 93.1 fl (80-100); Mean Platelet Volume 9.7 fl (7.4-10.4); Monocytes Absolute Auto 0.6 K/mm3 (0.1-0.6); Monocytes Percent Auto 10.1 % (2.6-8.5); Neutrophils Absolute Auto 3.2 K/mm3 (1.3-6.7); Neutrophils Percent Auto 59.3 % (45.5-73.1); Platelet Count Result 327 k/mm3 (150-375); Red Cell Distribution Width 13.3 % (11.5-14.5); White Blood Count 5.5 K/mm3 (4.5-10.0)
[2024-03-04 12:29] LABS: Alanine Aminotransferase 16 U/L (6-35); Albumin Level 4.4 g/dL (3.5-5.1); Alkaline Phosphatase 56 U/L (38-126); Anion Gap 4 mmol/L (4-12); Aspartate Amino Transferase 39 U/L (14-36); Bilirubin,Total 0.9 mg/dL (0.2-1.3); Blood Urea Nitrogen 15 mg/dL (7-17); Calcium 9.6 mg/dL (8.4-10.2); Carbon Dioxide 29 mmol/L (22-30); Chloride 102 mmol/L (98-107); Estimated Glomerular Filt Rate > 60; Glucose 73 mg/dL (65-110); Magnesium 2.2 mg/dL (1.6-2.3); Potassium 4.6 mmol/L (3.4-5.0); Sodium 135 mmol/L (137-145)
[2024-03-04 14:46] LABS: Lactic Acid Reflex 0.9 mmol/L (0.7-2.0)
== END 2024-03-04 10:20 | disposition home or self-care (01) ==
PROVIDERS: PCP Family Medicine; Visit Provider Nurse Practitioner Family
DX: E53.8 Deficiency of other specified B group vitamins (principal); E78.5 Hyperlipidemia, unspecified; R25.2 Cramp and spasm; I10 Essential (primary) hypertension
CPT/HCPCS: 36415; 80053; 82607; 83605; 83735; 85025

== ENCOUNTER 2024-03-26 12:16 | Outpatient (CLI) | payer BC, SELFPAY ==
--- NOTE | ~2024-03-26 | XR_ITS ---
AP view of the pelvis and AP and lateral views of the left hip Clinical history: Pain Findings: No acute fracture or dislocation is seen. Osseous alignment is anatomic. Bilateral hip arth roplasties in place. No hardware complication is evident.. There is degenerative change of the SI rafael nts. Soft tissues are unremarkable. Impression: No acute abnormality. Bilateral hip arthroplasties. SI joint degenerative change bilaterally. Reviewed, dictated and finalized at location M. Impression: No acute abnormality. Bilateral hip arthroplasties. SI joint degenerative change bilaterally.
--- NOTE | ~2024-03-26 | XR_ITS ---
XR knee LT min 4V 03/26/2024 12:41 Indication: Osteoarthritis of the knee Procedure: 4 views left knee Comparison: 10/11/2019 Findings: Severe tricompartment osteoarthritis which has progressed since prior examination. No acute fracture or traumatic malalignment. No significant joint effusion. Impression: 1: Severe tricompartment osteoarthritis of the left knee. Reviewed, dictated and finalized at location B. Impression: 1: Severe tricompartment osteoarthritis of the left knee.
== END 2024-03-26 12:17 | disposition home or self-care (01) ==
LOC: ANHIMG 12:17
PROVIDERS: PCP Family Medicine; Visit Provider Orthopaedic Surgery
DX: M17.0 Bilateral primary osteoarthritis of knee (principal); Z96.642 Presence of left artificial hip joint
CPT/HCPCS: 73502; 73564

== ENCOUNTER 2024-04-22 21:06 | Inpatient (IN) | payer MEDICARE, BC, SELFPAY ==
--- NOTE | ~2024-04-22 | XR_ITS ---
EXAMINATION: XR chest 1V portable Exam Date/Time: 04/22/2024 21:55 CDT HISTORY: cough, dyspnea X 1 DAY Comparison: 02/23/2023. RESULT: Lines, tubes, and devices: None. Lungs and pleura: Subtle areas of reticular nodular opacities in the left midlung, retrocardiac lung , and right lower lung. Cardiomediastinal silhouette: Stable. Small hiatal hernia. Other: No acute osseous or upper abdominal finding. IMPRESSION: Scattered areas of reticular nodular opacities may represent atypical infection in the appropriate cl inical context. Reviewed, dictated and finalized at location K. IMPRESSION: Scattered areas of reticular nodular opacities may represent atypical infection in the appropriate clinical context.
--- NOTE | ~2024-04-22 | XR_ITS ---
XR chest 1V portable 04/25/2024 05:50 Indication: Shortness of breath not improving Procedure: AP portable chest Comparison: Comparison to multiple prior studies sequentially, with oldest reviewed study dated 06/2022. Findings: Bilateral interstitial infiltrates with curly B lines and more focal consolidation of the l ower lobes. Small hiatal hernia. Heart size normal. No significant effusion or pneumothorax. There ar e degenerative changes of the shoulders. Impression: 1: Bilateral interstitial infiltrates with more focal consolidation of the lower lobes. Differential diagnosis includes mild edema, atypical pneumonia and/or atelectasis. Reviewed, dictated and finalized at location B. Impression: 1: Bilateral interstitial infiltrates with more focal consolidation of the lowe r lobes. Differential diagnosis includes mild edema, atypical pneumonia and/or atelectasis.
[2024-04-22 21:12] VITALS: BP 151/71; PULSE 114; RESP 19; TEMP 36.9; O2SAT 86
[2024-04-22 21:15] VITALS: O2SAT 94
--- NOTE | 2024-04-22 21:41 | ECG_ITS ---
[facility] [address] Test Date: 2024-04-22 Pat Name: Jannet Smiley Department: Room: Gender: F Food Service Helper: : 1945 Requested By: Leonidas Broderick Order Number: [id number] Ivette MD: Oren Land D.O. Measurements Intervals Sayner Rate: 96 P: 83 OK: 133 QRS: 48 QRSD: 95 T: 35 QT: 356 QTc: 450 Interpretive Statements SINUS RHYTHM BORDERLINE ST-T WAVE ABNORMALITY- ANTEROLAT/INF LEADS BASELINE ARTIFACT- II, III, AVR, AVL, AVF BORDERLINE ECG No previous ECG available for comparison Electronically Signed On 04-23-2024 08:33:03 CDT by Oren Land D.O.
--- NOTE | 2024-04-22 21:45 | ED.GENADULT ---
HPI - General Adult General Chief complaint: Shortness of Breath/Dyspnea Stated complaint: sob Time Seen by Provider: 04/22/24 21:12 Source: patient Mode of arrival: ambulatory Limitations: no limitations History of Present Illness HPI narrative: This is an 79-year-old female who presents to the ED with chief complaint of shortness of breath beginning today. Reports congestion and productive cough for the past 2 days. Denies chest pain. Reports intermittent fevers. Family is here and states that her temperature at home was 101? F. She did take Tylenol prior to arrival. Per triage patient arrives on 86% room air. She does not normally wear oxygen. She is saturating well on 2 L nasal cannula. Denies any known sick contacts. Denies nausea, vomiting, abdominal pain, urinary symptoms or back pain. Related Data Home Medications Medication Instructions Recorded Confirmed cholecalciferol (vitamin D3) 25 1,000 unit PO DAILY 10/12/19 04/23/24 mcg (1,000 unit) capsule multivitamin 1 tablet PO DAILY 10/12/19 04/23/24 azelastine 137 mcg-fluticasone 50 1 spray intranasal BID PRN Nasal 02/23/23 04/23/24 mcg/spray nasal spray Congestion magnesium 200 mg tablet 200 mg PO DAILY 03/23/24 04/23/24 Allergies Allergy/AdvReac Type Severity Reaction Status Date / Time lisinopril AdvReac Mild Cough Verified 04/23/24 00:42 Review of Systems Review of Systems: All systems as dictated in HPI PMFSH Past Medical History Medical History Cataract Dyslipidemia Environmental allergies Essential (primary) hypertension GERD without esophagitis History of esophageal stricture 12/2016 History of leukocytosis 2014 Hyperlipidemia Osteoarthritis of both knees Osteoarthritis of right knee Osteopenia Postmenopausal state TMJ (temporomandibular joint disorder) Surgical History Surgical History History of appendectomy History of endoscopy 01/20/12 02/25/18 History of hysterectomy 03/07/1998 History of left hip replacement 05/12/18 History of right hip replacement 06/15/19 History of right knee joint replacement 12/2019 Hx of tonsillectomy (~1949) Hx of wisdom tooth extraction Family History Family History (Updated 04/23/24 @ 00:50 by Eugene Castañeda RN) Son Hypertension Mother No problems noted. Father Parkinson disease Social History Social History (Updated 03/26/24 @ 13:06 by Iesha Hunt MA) Social History: She lives alone and has 3 children. She is . She worked at [employer] prior to getting . She stated home and raised her children. Then once her children were out of the house she worked various jobs including working at [employer]. Code status full code Smoking packs per day: 1 Smoking cigarettes per day: 20.0 Years smoked: 10 Smoking pack-years: 10.00 Smoking status: Former smoker Tobacco type: cigarettes Second hand tobacco smoke exposure: No Smoking end date: 11/24/02 Alcohol intake: never Substance use: never Substance use type: does not use Do You Feel Safe in your Home?: Yes Lack of Transportation: No Lack of Food: Never True Current Housing: I Have Housing Concerned About Future Housing: No Difficulty Paying Gas/Electric Bills: No Difficulty Paying for Meds: No Currently Unemployed: No Education: High School Diploma/GED Difficulty w/ Childcare or Family Care: No Gender identity (if verbalized by the patient): Female Spiritual care concerns: No Agree to blood products: Yes Exam Narrative: GENERAL: Well-appearing, well-nourished, and in no acute distress. Resting comfortably. HEAD: Normocephalic, atraumatic. EYES: PERRLA and EOMI. ENT: Nares clear, no rhinorrhea or epistaxis. Mucous membranes moist. Oropharynx without tonsillar hypertrophy exudate or other lesions. NECK: Supple. No adenopathy or
[2024-04-22] MEDS: SODIUM CHLORIDE 0.9% IV 1,000 ML 999 ML IV CONT ×2 (22:01→22:02)
[2024-04-22] MEDS: methylPREDNISolone SOD SUCC 125 MG VIAL 40 MG IV PUSH (22:01)
[2024-04-22 22:09] LABS: Basophils Percent Auto 0.4 % (0.2-1.2); Hematocrit 37.9 % (37.0-47.0); Hemoglobin 12.4 g/dL (12.0-15.0); Immature Granulocyte Absolute 0.02 K/mm3 (0.00-0.031); Immature Granulocyte Percent A 0.3 % (0-0.5); Lymphocytes Absolute Auto 0.51 K/mm3 (0.9-3.2); Lymphocytes Percent Auto 6.6 % (18.3-44.2); Mean Corpuscular HGB Conc 32.7 g/dl (32-36); Mean Corpuscular Volume 91.5 fl (80-100); Mean Platelet Volume 9.3 fl (7.4-10.4); Monocytes Absolute Auto 0.5 K/mm3 (0.1-0.6); Monocytes Percent Auto 6.3 % (2.6-8.5); Neutrophils Absolute Auto 6.7 K/mm3 (1.3-6.7); Neutrophils Percent Auto 86.4 % (45.5-73.1); Platelet Count Result 213 k/mm3 (150-375); Red Blood Count 4.14 M/mm3 (4.2-5.4); Red Cell Distribution Width 13.2 % (11.5-14.5); White Blood Count 7.7 K/mm3 (4.5-10.0)
[2024-04-22 22:22] LABS: Alanine Aminotransferase 20 U/L (6-35); Albumin Level 3.6 g/dL (3.5-5.1); Alkaline Phosphatase 55 U/L (38-126); Anion Gap 4 mmol/L (4-12); Aspartate Amino Transferase 24 U/L (14-36); Blood Urea Nitrogen 11 mg/dL (7-17); Calcium 8.5 mg/dL (8.4-10.2); Carbon Dioxide 26 mmol/L (22-30); Chloride 97 mmol/L (98-107); Estimated CRCL calculation 69 ml/min; Estimated Glomerular Filt Rate > 60; Glucose 123 mg/dL (65-110); Lactic Acid Reflex 0.9 mmol/L (0.7-2.0); Magnesium 1.9 mg/dL (1.6-2.3); Potassium 3.6 mmol/L (3.4-5.0); Sodium 127 mmol/L (137-145)
[2024-04-22 22:26] LABS: INR 1.2; Prothrombin Time 15.9 Seconds (11.1-14.7)
[2024-04-22 22:27] LABS: Partial Thromboplastin Time 36.3 Seconds (22.3-36.8)
[2024-04-22 22:33] LABS: Troponin I 0.028 ng/mL (0.000-0.034)
[2024-04-22 22:52] LABS: Anisocytosis 1+; Hypochromasia 1+; Platelet Estimate Adequate (Adequate)
[2024-04-22 22:53] LABS: Ovalocytes 1+; Schistocytes None Seen
--- NOTE | 2024-04-22 23:34 | PM.IMHP ---
H&P: HPI History of Present Illness Date/Time: 04/22/24 23:34 Chief Complaint: sob Narrative: This is an 79-year-old female with past medical history significant for hypertension, GERD, DJD. patient presented to the emergency room due to cough, sputum production, fever, poor appetite body aches and pains for the last 2 days or so. Preliminary workup was significant for chest x-ray with infiltrate. EXAMINATION:? XR chest 1V portable Exam Date/Time:? 04/22/2024 21:55 CDT HISTORY: cough, dyspnea X 1 DAY ? Comparison:? 02/23/2023. RESULT: Lines, tubes, and devices:? None. Lungs and pleura:? Subtle areas of reticular nodular opacities in the left midlung, retrocardiac lung, and right lower lung. Cardiomediastinal silhouette:? Stable. Small hiatal hernia. Other:? No acute osseous or upper abdominal finding. ? IMPRESSION: Scattered areas of reticular nodular opacities may represent atypical infection in the appropriate clinical context. Review of Systems Review of Systems: Shortness of breath, cough, sputum production, fever, body aches and pains, poor appetite Constitutional: Constitutional: Reports chills, Reports fever(s), Reports malaise and Reports poor appetite Eyes: Eyes: Denies change in vision ENT: Denies dysphagia and Denies odynophagia Cardiovascular: Cardiovascular: Denies chest pain, Denies radiating jaw, neck or arm pain and Denies palpitations Respiratory: Respiratory: Reports chest congestion, Reports cough and Reports dyspnea Gastrointestinal: Gastrointestinal: Denies abdominal pain, Denies nausea and Denies vomiting Genitourinary: Genitourinary: Denies dysuria Musculoskeletal: Musculoskeletal: Reports myalgias Integumentary/Breasts: Skin/Breast: Denies rash Neurologic: Denies focal weakness and Denies Sensory deficit (Neuro) Psychiatric: Psychiatric: Reports no additional psychiatric complaints and Reports as per HPI Endocrine: Endocrine: Denies polyphagia, Denies polydipsia, Denies polyuria and Denies palpitations Hematologic/Lymphatic: Hematologic/Lymphatic: Reports no additional hematologic/lymphatic complaints and Reports as per HPI Allergic/Immunologic: Allergic/Immunologic: Reports no additional allergic/immunologic complaints and Reports as per HPI [facility] Past Medical History Medical History Cataract Dyslipidemia Environmental allergies Essential (primary) hypertension GERD without esophagitis History of esophageal stricture 12/2016 History of leukocytosis 2014 Hyperlipidemia Osteoarthritis of both knees Osteoarthritis of right knee Osteopenia Postmenopausal state TMJ (temporomandibular joint disorder) Surgical History Surgical History History of appendectomy History of endoscopy 01/20/12 02/25/18 History of hysterectomy 03/07/1998 History of left hip replacement 05/12/18 History of right hip replacement 06/15/19 History of right knee joint replacement 12/2019 Hx of tonsillectomy (~1949) Hx of wisdom tooth extraction Family History Family History (Updated 04/23/24 @ 00:50 by Eugene Castañeda RN) Son Hypertension Mother No problems noted. Father Parkinson disease Social History Social History (Updated 03/26/24 @ 13:06 by Iesha Hunt MA) Social History: She lives alone and has 3 children. She is . She worked at [employer] prior to getting . She stated home and raised her children. Then once her children were out of the house she worked various jobs including working at [email or web address]. Code status full code Smoking packs per day: 1 Smoking cigarettes per day: 20.0 Years smoked: 10 Smoking pack-years: 10.00 Smoking status: Former smoker Tobacco type: cigarettes Second hand tobacco smoke exposure: No Smoking end date: 11/24/02 Alcohol intake: never Substance use: never Substance
[2024-04-22] MEDS: AZITHROMYCIN 500 MG/NS 250 ML 500 MG/250 ML BAG 250 MG IVPB (23:41)
[2024-04-22 23:42] VITALS: BP 130/62; PULSE 100; RESP 15; O2SAT 94
[2024-04-22 23:45] LABS: Appearance Urine Cloudy (Clear); Bacteria Urine 1+ /hpf; Bilirubin Urine Negative (Negative); Blood Urine Trace (Negative); Color Urine Yellow (Yellow); Glucose Urine UA Negative (Negative); Ketones Urine 1+ mg/dL (Negative); Leukocyte Esterase Ur 2+ LEU/UL (Negative); Nitrate Urine Negative (Negative); Non Pathogenic Casts 0-2; Protein Urine Negative (Negative); Specific Grav Ur 1.011 (1.001-1.035); Squamous Epithelial Cell Urine Moderate /hpf (Few); WBC Urine 21-50 /hpf (0-3)
[2024-04-22 23:47] LABS: Add Urine Microscopic? YES
[2024-04-22 23:53] LABS: Influenza A QL RT-PCR Negative (Negative); Influenza B QL RT-PCR Negative (Negative); RSV RNA, RT-PCR Negative (Negative); SARS-CoV-2 RNA PCR Negative (Negative)
[2024-04-23] VITALS (7 sets, daily range): BP systolic 103–136; BP diastolic 61–80; PULSE 75–107; RESP 16–20; TEMP 36.2–37.2; O2SAT 94–97; BMI 23.4
[2024-04-23 00:02] LABS: NT Pro B Type Natriuretic Pept 646 pg/mL (19.9-100)
[2024-04-23 00:05] LABS: Procalcitonin 0.8 ng/mL
--- NOTE | 2024-04-23 00:30 | ADMGEN ---
This patient, Jannet Smiley, was admitted to Medical Room 248-. Patient/family oriented to hospital policies and general routines including ID bracelet, bed and alarms, visiting hours, pain management, procedures, bathroom and other care routines, personal items, smoking policy, room service/diet, and visiting hours. Information on how to activate the Rapid Response Team has been discussed. Patient/Family are encouraged to report perceived risks to care and to ask questions if they do not understand what they are told or what they should do.
[2024-04-23] MEDS: LOSARTAN POTASSIUM 50 MG TABLET PO (08:40)
[2024-04-23] MEDS: VERAPAMIL HCL ER 240 MG TABLET.ER PO (08:40)
[2024-04-23] MEDS: estradioL 1 MG TABLET PO (08:40)
[2024-04-23] MEDS: PANTOPRAZOLE 40 MG TABLET PO (08:40)
[2024-04-23] MEDS: MAGNESIUM OXIDE 200 MG TABLET PO (08:40)
[2024-04-23] MEDS: ALPRAZolam (*CRX) 0.25 MG TABLET PO (11:20)
[2024-04-23] MEDS: SODIUM CHLORIDE 0.9% IV 1,000 ML 75 ML IV CONT (11:24)
--- NOTE | 2024-04-23 14:16 | PM.IMPN ---
Progress Note: A&P Assessment and Plan (1) Acute respiratory failure with hypoxia: Code(s): J96.01 - Acute respiratory failure with hypoxia Status: Acute Assessment and Plan: on supplemental oxygen by nasal cannula to be weaned off as tolerated continue to monito closelyr (2) Pneumonia: Code(s): J18.9 - Pneumonia, unspecified organism Status: Acute Assessment and Plan: patient started on Rocephin and Zithromax in the ER which we will continue on the floor blood cultures in progress to be followed Sputum cultures ordered (3) GERD without esophagitis: Code(s): K21.9 - Gastro-esophageal reflux disease without esophagitis Status: Acute Assessment and Plan: Continue with PPI (4) Essential (primary) hypertension: Code(s): I10 - Essential (primary) hypertension Status: Acute Assessment and Plan: restart home meds Plan Encouraged ambulation PT/OT evaluation ordered ? Patient seen and examined at bedside during my morning rounds ? Collaborated with patient's nurse at the bedside in detail and addressed all concerns ? Labs, electrolytes, radiology, investigations and test results reviewed ? Consult/Nursing/Ancilliary notes on the chart reviewed and appreciated ? Spoke with patient/family at the bedside and answered all the questions that they had Repeat labs in a.m. Electrolyte replacement as per protocol. Patient will be monitored very closely on the floor. Further recommendations as per the hospital course. Time Spent With Patient Time with patient: 15 - 25 minutes Subjective Date/time seen: 04/23/24 14:16 Interval history: Patient seen and evaluated at bedside. Feeling a little better after treatment in the ER and on the floor. Shortness of breath slowly improving Review of Systems Review of Systems: 14 systems were reviewed with pertinent positives and negatives per HPI. Except as documented in the HPI/progress notes, all other systems were reviewed and are negative. All systems reviewed & are unremarkable except as noted in HPI and below Exam Narrative: PHYSICAL EXAMINATION: Vital signs: Please see the chart General physical exam: Patient lying in bed, pleasant cooperative with exam, appears to be weak tired and fatigued, shortness of breath is slowly improving Head/eyes: Atraumatic, EOMI, PERRLA ENT: Moist mucous membranes, nasal passages clear Neck: Supple, full range of motion, trachea midline CVS: S1 + S2, regular rate and rhythm, no murmurs Respiratory: Bilaterally decreased air entry in both lung edmondson, mild B/L crackles, + scattered bilateral rhonchi, coarse bilateral breath sounds Abdomen: Soft, non-tender, bowel sounds +ve, no organomegaly Extremities: No clubbing, no cyanosis, no edema, no calf tenderness Musculoskeletal: Moves all, decreased range of motion, no muscle spasms Skin: Warm, dry, no jaundice, no cyanosis Neurological: Awake, alert, oriented x 3, cranial nerves II-XII intact, no focal neurological deficits Psychiatric: Pleasant and cooperative with normal mood and affect.? Judgment and insight intact. Non suicidal Objective Data Vital Signs Vital Signs: Vital Signs - 24 hr 04/22/24 21:12 04/22/24 21:15 04/22/24 23:42 Temperature 36.9 C Pulse Rate 114 H 100 Respiratory Rate 19 15 Blood Pressure 151/71 H 130/62 Pulse Oximetry 86 L 94 94 Oxygen Delivery Room Air Nasal Cannula Oxygen Flow Rate 2 04/23/24 00:36 04/23/24 00:41 04/23/24 06:00 Temperature 37.2 C 36.2 C L Pulse Rate 107 H 75 Respiratory Rate 20 20 Blood Pressure 113/80 123/61 Pulse Oximetry 94 94 94 Oxygen Delivery Nasal Cannula Oxygen Flow Rate 2 Intake/Output Intake/Output: Intake & Output 04/20/24 04/21/24 04/22/24 04/23/24 23:59 23:59 23:59 23:59 Intake Total 2049 930 Output Total 750 Balance 2049 180 Meds/Results Medications: Active Medications Generic Name Dose Route Star
[2024-04-23] MEDS: AZITHROMYCIN 500 MG/NS 250 ML 500 MG/250 ML BAG 250 MG IVPB (21:20)
[2024-04-24 05:09] LABS: Basophils Percent Auto 0.2 % (0.2-1.2); Hematocrit 36.9 % (37.0-47.0); Hemoglobin 11.7 g/dL (12.0-15.0); Immature Granulocyte Absolute 0.03 K/mm3 (0.00-0.031); Immature Granulocyte Percent A 0.5 % (0-0.5); Lymphocytes Absolute Auto 0.56 K/mm3 (0.9-3.2); Lymphocytes Percent Auto 8.5 % (18.3-44.2); Mean Corpuscular HGB Conc 31.7 g/dl (32-36); Mean Corpuscular Hemoglobin 29.8 pg (26-34); Mean Corpuscular Volume 94.1 fl (80-100); Mean Platelet Volume 9.2 fl (7.4-10.4); Monocytes Absolute Auto 0.4 K/mm3 (0.1-0.6); Monocytes Percent Auto 5.6 % (2.6-8.5); Neutrophils Absolute Auto 5.6 K/mm3 (1.3-6.7); Neutrophils Percent Auto 85.2 % (45.5-73.1); Platelet Count Result 221 k/mm3 (150-375); Red Blood Count 3.92 M/mm3 (4.2-5.4); Red Cell Distribution Width 13.2 % (11.5-14.5); White Blood Count 6.6 K/mm3 (4.5-10.0)
[2024-04-24 05:23] LABS: Anion Gap 1 mmol/L (4-12); Blood Urea Nitrogen 9 mg/dL (7-17); Calcium 8.5 mg/dL (8.4-10.2); Carbon Dioxide 31 mmol/L (22-30); Chloride 105 mmol/L (98-107); Estimated CRCL calculation 84 ml/min; Estimated Glomerular Filt Rate > 60; Glucose 108 mg/dL (65-110); Phosphorus 2.3 mg/dL (2.5-4.5); Potassium 3.8 mmol/L (3.4-5.0); Sodium 137 mmol/L (137-145)
[2024-04-24 07:26] VITALS: O2SAT 94
[2024-04-24 08:00] VITALS: O2SAT 97
[2024-04-24] MEDS: VERAPAMIL HCL ER 240 MG TABLET.ER PO (09:01)
[2024-04-24] MEDS: PANTOPRAZOLE 40 MG TABLET PO (09:01)
[2024-04-24] MEDS: guaiFENesin/DEXTROMETHORPHAN 10 ML UDC PO ×3 (09:01→20:50)
[2024-04-24] MEDS: MAGNESIUM OXIDE 200 MG TABLET PO (09:01)
[2024-04-24] MEDS: estradioL 1 MG TABLET PO (09:01)
[2024-04-24] MEDS: LOSARTAN POTASSIUM 50 MG TABLET PO (09:01)
[2024-04-24] MEDS: ENOXAPARIN 40 MG/0.4 ML SYRINGE SUB-Q (09:04)
[2024-04-24] MEDS: POTASSIUM PHOS,M-BASIC-D-BASIC 20 MMOL in SODIUM CHLORIDE 0.9% IV 250 ML 64.17 MMOL IVPB (09:15)
[2024-04-24 09:27] VITALS: BP 125/56; PULSE 94; RESP 22; TEMP 35.9; O2SAT 97
--- NOTE | 2024-04-24 11:43 | PCPTNOTE ---
attempted PT evaluation, 1140- pt refused due to not feeling well--will try tomorrow
--- NOTE | 2024-04-24 12:11 | PM.IMPN ---
Progress Note: A&P Assessment and Plan (1) Acute respiratory failure with hypoxia: Code(s): J96.01 - Acute respiratory failure with hypoxia Status: Acute Assessment and Plan: on supplemental oxygen by nasal cannula Wean off on oxygen as tolerated to keep O2 sats around 94% continue to monitor (2) Pneumonia: Code(s): J18.9 - Pneumonia, unspecified organism Status: Acute Assessment and Plan: Continue with IV antibiotics in form Rocephin and Zithromax cultures in progress Patient given cough meds p.r.n. as needed (3) GERD without esophagitis: Code(s): K21.9 - Gastro-esophageal reflux disease without esophagitis Status: Acute Assessment and Plan: Continue with PPI (4) Essential (primary) hypertension: Code(s): I10 - Essential (primary) hypertension Status: Acute Assessment and Plan: restart home meds (5) Hyponatremia: Code(s): E87.1 - Hypo-osmolality and hyponatremia Status: Acute Assessment and Plan: Patient admitted with sodium level of 127 Gentle IV hydration ordered with normal saline at 75 cc/hour for 1000cc Strict input and output monitoring Monitor renal functions closely Hypernatremia now resolved with sodium level at 137 Patient having adequate oral intake DC IV fluids Plan ? Patient seen and examined at bedside during my morning rounds ? Collaborated with patient's nurse at the bedside in detail and addressed all concerns ? Labs, electrolytes, radiology, investigations and test results reviewed ? Consult/Nursing/Ancilliary notes on the chart reviewed and appreciated ? Spoke with patient/family at the bedside and answered all the questions that they had Repeat labs in a.m. Electrolyte replacement as per protocol. Patient will be monitored very closely on the floor. Further recommendations as per the hospital course. I am signing off. Patient's medical care will be taken over by my covering hospitalist provider in am. Time Spent With Patient Time with patient: 15 - 25 minutes Subjective Date/time seen: 04/24/24 12:11 Interval history: Patient lying in bed to a morning rounds. Still complains of some cough and shortness of breath. Still requiring oxygen which she is slowly improving symptomatically. Requesting something for cough. Review of Systems Review of Systems: 14 systems were reviewed with pertinent positives and negatives per HPI. Except as documented in the HPI/progress notes, all other systems were reviewed and are negative. All systems reviewed & are unremarkable except as noted in HPI and below Constitutional: Constitutional: Reports chills, Reports fever(s), Reports malaise and Reports poor appetite Eyes: Eyes: Denies change in vision ENT: Denies dysphagia and Denies odynophagia Cardiovascular: Cardiovascular: Denies chest pain, Denies radiating jaw, neck or arm pain, Denies palpitations and Reports dyspnea Respiratory: Respiratory: Reports chest congestion, Reports cough and Reports dyspnea Gastrointestinal: Gastrointestinal: Denies abdominal pain, Denies dysphagia, Denies nausea, Denies odynophagia and Denies vomiting Genitourinary: Genitourinary: Denies dysuria Musculoskeletal: Musculoskeletal: Reports myalgias Integumentary/Breasts: Skin/Breast: Denies rash Neurologic: Denies focal weakness and Denies Sensory deficit (Neuro) Psychiatric: Psychiatric: Reports no additional psychiatric complaints and Reports as per HPI Endocrine: Endocrine: Denies polyphagia, Denies polydipsia, Denies polyuria and Denies palpitations Hematologic/Lymphatic: Hematologic/Lymphatic: Reports no additional hematologic/lymphatic complaints and Reports as per HPI Allergic/Immunologic: Allergic/Immunologic: Reports no additional allergic/immunologic complaints and Reports as per HPI Exam Narrative: PHYSICAL EXAMINATION: Vital signs: Please see the chart General physical exam: Patient lying in
[2024-04-24 14:00] VITALS: BP 131/68; PULSE 90; RESP 22; TEMP 35.7; O2SAT 92
[2024-04-24 19:58] VITALS: BP 147/64; PULSE 92; RESP 22; TEMP 36.3; O2SAT 96
[2024-04-24] MEDS: AZITHROMYCIN 500 MG/NS 250 ML 500 MG/250 ML BAG IVPB (20:46)
[2024-04-25 05:22] LABS: Basophils Percent Auto 0.2 % (0.2-1.2); Eosinophils Absolute Auto 0.1 K/mm3 (0-0.3); Eosinophils Percent Auto 1.4 % (0-4.4); Hematocrit 37.5 % (37.0-47.0); Hemoglobin 11.6 g/dL (12.0-15.0); Immature Granulocyte Absolute 0.03 K/mm3 (0.00-0.031); Immature Granulocyte Percent A 0.5 % (0-0.5); Lymphocytes Absolute Auto 0.69 K/mm3 (0.9-3.2); Lymphocytes Percent Auto 12.1 % (18.3-44.2); Mean Corpuscular HGB Conc 30.9 g/dl (32-36); Mean Corpuscular Hemoglobin 29.2 pg (26-34); Mean Corpuscular Volume 94.5 fl (80-100); Mean Platelet Volume 9.1 fl (7.4-10.4); Monocytes Absolute Auto 0.5 K/mm3 (0.1-0.6); Monocytes Percent Auto 9.1 % (2.6-8.5); Neutrophils Absolute Auto 4.4 K/mm3 (1.3-6.7); Neutrophils Percent Auto 76.7 % (45.5-73.1); Platelet Count Result 275 k/mm3 (150-375); Red Blood Count 3.97 M/mm3 (4.2-5.4); Red Cell Distribution Width 13.3 % (11.5-14.5); White Blood Count 5.7 K/mm3 (4.5-10.0)
[2024-04-25 05:26] VITALS: BP 143/69; PULSE 94; RESP 16; TEMP 36.9; O2SAT 94
[2024-04-25 05:41] LABS: Anion Gap 2 mmol/L (4-12); Blood Urea Nitrogen 7 mg/dL (7-17); Calcium 8.1 mg/dL (8.4-10.2); Carbon Dioxide 32 mmol/L (22-30); Chloride 101 mmol/L (98-107); Estimated CRCL calculation 84 ml/min; Estimated Glomerular Filt Rate > 60; Glucose 94 mg/dL (65-110); Potassium 3.8 mmol/L (3.4-5.0); Sodium 135 mmol/L (137-145)
[2024-04-25 08:00] VITALS: O2SAT 92
[2024-04-25] MEDS: PANTOPRAZOLE 40 MG TABLET PO (08:12)
[2024-04-25] MEDS: SIMVASTATIN 10 MG TABLET PO (08:12)
[2024-04-25] MEDS: MAGNESIUM OXIDE 200 MG TABLET PO (08:12)
[2024-04-25] MEDS: MULTIVITAMINS THERAPEUTIC TAB (*BKC) 1 TABLET PO (08:12)
[2024-04-25] MEDS: VERAPAMIL HCL ER 240 MG TABLET.ER PO (08:12)
[2024-04-25] MEDS: LOSARTAN POTASSIUM 50 MG TABLET PO (08:12)
[2024-04-25] MEDS: estradioL 1 MG TABLET PO (08:12)
[2024-04-25] MEDS: ENOXAPARIN 40 MG/0.4 ML SYRINGE SUB-Q (08:12)
[2024-04-25] MEDS: CHOLECALCIFEROL 1,000 UNITS TABLET 1000 UNITS PO (08:12)
--- NOTE | 2024-04-25 10:20 | PM.IMPN ---
Progress Note: A&P Assessment and Plan (1) Acute respiratory failure with hypoxia: Code(s): J96.01 - Acute respiratory failure with hypoxia Status: Acute Assessment and Plan: Secondary to pneumonia Requiring 2 L supplemental O2. Continue to wean oxygen as tolerated. COVID, RSV, influenza negative Continue supportive care to include bronchodilators, expectorants, incentive spirometry (2) Pneumonia: Code(s): J18.9 - Pneumonia, unspecified organism Status: Acute Assessment and Plan: As above. Repeat CXR today with persistent focal consolidation of bilateral lower lobes Sputum culture is pending Continue ceftriaxone and azithromycin (3) Essential (primary) hypertension: Code(s): I10 - Essential (primary) hypertension Status: Acute Assessment and Plan: Blood pressures remain stable Continue home antihypertensives (4) Hyponatremia: Code(s): E87.1 - Hypo-osmolality and hyponatremia Status: Acute Assessment and Plan: Resolved. Sodium mildly decreased at 127 on presentation Improved to 135 today IV fluids have been discontinued (5) GERD without esophagitis: Code(s): K21.9 - Gastro-esophageal reflux disease without esophagitis Status: Chronic Assessment and Plan: Continue with PPI Subjective Date/time seen: 04/25/24 10:20 Interval history: Assuming care for Jannet today. She reports she continues to feel poorly. She complains of persistent shortness of breath, conversational dyspnea, dyspnea on exertion. She complains of dry, nonproductive cough. She denies chest pain or palpitations. She denies abdominal pain, nausea, vomiting, fever, chills, dizziness, lightheadedness, weakness. Reports she had a bowel movement yesterday. Denies any urinary symptoms. She reports poor appetite. Her family is present at the bedside. Review of Systems Review of Systems: All systems reviewed & are unremarkable except as noted in HPI and below Exam Narrative: General: Well-nourished, well-appearing 79-year-old female, sitting up in bed, comfortable, NARD Neuro: awake, alert and oriented x4, speech clear, no focal neuro deficits noted HEENMT: normocephalic, atraumatic, EOMI, sclerae anicteric Respiratory: Diminished breath sounds bilaterally, mild conversational dyspnea, no increased work of breathing Cardio: regular rate, regular rhythm with S1-S2 Abdomen: nondistended, normoactive bowel sounds, soft, nontender to palpation Extremities: no edema, erythema, or tenderness to palpation Skin: no rashes or lesions, warm and dry Psych: appropriate mood and affect, judgment and insight intact Objective Data Vital Signs Vital Signs: Vital Signs - 24 hr 04/24/24 10:55 04/24/24 14:00 04/24/24 19:58 Temperature 96.3 F L 97.4 F L Pulse Rate 90 92 Respiratory Rate 22 H 22 H Blood Pressure 131/68 147/64 H Pulse Oximetry 92 96 Oxygen Delivery Nasal Cannula Oxygen Flow Rate 2 04/25/24 05:26 04/25/24 08:00 04/25/24 09:07 Temperature 98.4 F Pulse Rate 94 Respiratory Rate 16 Blood Pressure 143/69 H Pulse Oximetry 94 92 Oxygen Delivery Nasal Cannula Nasal Cannula Oxygen Flow Rate 2 2 Intake/Output Intake/Output: Intake & Output 04/22/24 04/23/24 04/24/24 04/25/24 23:59 23:59 23:59 23:59 Intake Total 2050 1470 4170 0 Output Total 2450 3100 650 Balance 2050 -980 1070 -650 Meds/Results Medications: Active Medications Generic Name Dose Route Start Last Admin Trade Name Freq PRN Reason Stop Dose Admin Acetaminophen 650 mg 04/22/24 23:31 Acetaminophen 325 Mg Tablet PO Q4H PRN Mild Pain (1-3) or Fever Albuterol 2.5 mg 04/23/24 15:00 Albuterol Sulfate Neb 2.5 Mg/3 Ml Inh INHALATION Q4HRT PRN Shortness Of Breath Alprazolam 0.25 mg 04/23/24 10:13 04/23/24 11:20 Alprazolam (*Crx) 0.25 Mg Tablet PO 0.25 mg TID PRN Administration A
[2024-04-25 13:47] VITALS: BP 123/59; PULSE 86; RESP 24; TEMP 36.8; O2SAT 96
[2024-04-25 15:34] VITALS: O2SAT 93
[2024-04-25 19:50] VITALS: BP 142/81; PULSE 86; RESP 17; TEMP 36.7; O2SAT 97
[2024-04-25 20:00] VITALS: O2SAT 97
[2024-04-25] MEDS: guaiFENesin 12 HR 600 MG TABCR PO (20:59)
[2024-04-25] MEDS: AZITHROMYCIN 500 MG/NS 250 ML 500 MG/250 ML BAG 250 MG IVPB (21:03)
[2024-04-26 04:52] VITALS: BP 143/64; PULSE 92; RESP 17; TEMP 36.8; O2SAT 96
[2024-04-26 05:31] LABS: Basophils Percent Auto 0.7 % (0.2-1.2); Eosinophils Absolute Auto 0.1 K/mm3 (0-0.3); Eosinophils Percent Auto 2.4 % (0-4.4); Hemoglobin 11.4 g/dL (12.0-15.0); Immature Granulocyte Absolute 0.05 K/mm3 (0.00-0.031); Immature Granulocyte Percent A 1.2 % (0-0.5); Lymphocytes Absolute Auto 0.79 K/mm3 (0.9-3.2); Lymphocytes Percent Auto 19.2 % (18.3-44.2); Mean Corpuscular HGB Conc 30.8 g/dl (32-36); Mean Corpuscular Hemoglobin 29.3 pg (26-34); Mean Corpuscular Volume 95.1 fl (80-100); Mean Platelet Volume 9.1 fl (7.4-10.4); Monocytes Absolute Auto 0.5 K/mm3 (0.1-0.6); Monocytes Percent Auto 11.9 % (2.6-8.5); Neutrophils Absolute Auto 2.7 K/mm3 (1.3-6.7); Neutrophils Percent Auto 64.6 % (45.5-73.1); Platelet Count Result 276 k/mm3 (150-375); Red Blood Count 3.89 M/mm3 (4.2-5.4); Red Cell Distribution Width 13.2 % (11.5-14.5); White Blood Count 4.1 K/mm3 (4.5-10.0)
[2024-04-26 05:46] LABS: Anion Gap 0 mmol/L (4-12); Blood Urea Nitrogen 4 mg/dL (7-17); Calcium 8.2 mg/dL (8.4-10.2); Carbon Dioxide 35 mmol/L (22-30); Chloride 101 mmol/L (98-107); Estimated CRCL calculation 84 ml/min; Estimated Glomerular Filt Rate > 60; Glucose 92 mg/dL (65-110); Potassium 3.9 mmol/L (3.4-5.0); Sodium 136 mmol/L (137-145)
--- NOTE | 2024-04-26 07:29 | PM.IMPN ---
Progress Note: A&P Assessment and Plan (1) Acute respiratory failure with hypoxia: Code(s): J96.01 - Acute respiratory failure with hypoxia Status: Acute Assessment and Plan: Secondary to pneumonia Requiring 2 L supplemental O2. Continue to wean oxygen as tolerated. currently on 2 l COVID, RSV, influenza negative Continue supportive care to include bronchodilators, expectorants, incentive spirometry (2) Pneumonia: Code(s): J18.9 - Pneumonia, unspecified organism Status: Acute Assessment and Plan: As above. Repeat CXR today with persistent focal consolidation of bilateral lower lobes Sputum culture is pending Continue ceftriaxone and azithromycin (last day for azithro today) Continue supportive care to include bronchodilators, expectorants, incentive spirometry (3) Essential (primary) hypertension: Code(s): I10 - Essential (primary) hypertension Status: Acute Assessment and Plan: Blood pressures remain stable Continue home antihypertensives (4) Hyponatremia: Code(s): E87.1 - Hypo-osmolality and hyponatremia Status: Acute Assessment and Plan: Resolved. Sodium mildly decreased at 127 on presentation Improved to 136 today 04/26 IV fluids have been discontinued (5) GERD without esophagitis: Code(s): K21.9 - Gastro-esophageal reflux disease without esophagitis Status: Chronic Assessment and Plan: Continue with PPI Time Spent With Patient Time with patient: less than 15 minutes Subjective Date/time seen: 04/26/24 07:29 Interval history: 04/26- pt is seen and examined today.. She reports she is feeling better today- still somewhat sob with exertion, still on 2-3 l per NC. She complains of persistent shortness of breath, conversational dyspnea, dyspnea on exertion. She complains of cough but able to bring phlegm up. No chest pain or palpitations. No abdominal pain, nausea, vomiting, fever, chills, dizziness, lightheadedness, weakness. NOt much appetite. Have not had BM in couple of days- will add miralax as it works for her at home Review of Systems Review of Systems: 14 systems were reviewed with pertinent positives and negatives per HPI. Except as documented in the HPI/progress notes, all other systems were reviewed and are negative. All systems reviewed & are unremarkable except as noted in HPI and below Constitutional: Constitutional: Reports poor appetite Eyes: Eyes: Denies change in vision ENT: Denies dysphagia and Denies odynophagia Cardiovascular: Cardiovascular: Denies chest pain, Denies radiating jaw, neck or arm pain, Denies palpitations and Reports dyspnea Respiratory: Respiratory: Reports chest congestion, Reports cough and Reports dyspnea Gastrointestinal: Gastrointestinal: Denies abdominal pain, Denies dysphagia, Denies nausea, Denies odynophagia and Denies vomiting Genitourinary: Genitourinary: Denies dysuria Musculoskeletal: Musculoskeletal: Reports myalgias Integumentary/Breasts: Skin/Breast: Denies rash Neurologic: Denies focal weakness and Denies Sensory deficit (Neuro) Psychiatric: Psychiatric: Reports no additional psychiatric complaints and Reports as per HPI Endocrine: Endocrine: Denies polyphagia, Denies polydipsia, Denies polyuria and Denies palpitations Hematologic/Lymphatic: Hematologic/Lymphatic: Reports no additional hematologic/lymphatic complaints and Reports as per HPI Allergic/Immunologic: Allergic/Immunologic: Reports no additional allergic/immunologic complaints and Reports as per HPI Exam Narrative: General: Well-nourished, well-appearing 79-year-old female, sitting up in bed, comfortable, NARD Neuro: awake, alert and oriented x4, speech clear, no focal neuro deficits noted HEENMT: normocephalic, atraumatic, EOMI, sclerae anicteric Respiratory: Diminished breath sounds bilaterally, mild conversational dyspnea, no increased work of breathing Cardio: r
[2024-04-26 08:00] VITALS: O2SAT 96
[2024-04-26] MEDS: CHOLECALCIFEROL 1,000 UNITS TABLET 1000 UNITS PO (08:41)
[2024-04-26] MEDS: ENOXAPARIN 40 MG/0.4 ML SYRINGE SUB-Q (08:41)
[2024-04-26] MEDS: estradioL 1 MG TABLET PO (08:42)
[2024-04-26] MEDS: MAGNESIUM OXIDE 200 MG TABLET PO (08:42)
[2024-04-26] MEDS: guaiFENesin 12 HR 600 MG TABCR PO ×2 (08:42→20:44)
[2024-04-26] MEDS: LOSARTAN POTASSIUM 50 MG TABLET PO (08:42)
[2024-04-26 08:43] VITALS: BP 161/74
[2024-04-26] MEDS: SIMVASTATIN 10 MG TABLET PO (08:43)
[2024-04-26] MEDS: MULTIVITAMINS THERAPEUTIC TAB (*BKC) 1 TABLET PO (08:43)
[2024-04-26] MEDS: VERAPAMIL HCL ER 240 MG TABLET.ER PO (08:43)
[2024-04-26] MEDS: PANTOPRAZOLE 40 MG TABLET PO (08:43)
[2024-04-26] MEDS: polyethylene glycoL 3350 17 GM POWD.PACK PO (12:47)
[2024-04-26 14:00] VITALS: BP 133/64; PULSE 80; RESP 18; TEMP 36.9; O2SAT 97
[2024-04-26 19:31] VITALS: BP 133/65; PULSE 78; RESP 18; TEMP 36.2; O2SAT 96
[2024-04-26 20:44] VITALS: O2SAT 96
[2024-04-26] MEDS: AZITHROMYCIN 250 MG TABLET 500 MG PO (20:44)
[2024-04-26] MEDS: AMOXICILLIN/CLAVULANATE K 875-125 MG TAB 1 TABLET PO (20:44)
[2024-04-27] VITALS (7 sets, daily range): BP systolic 125–153; BP diastolic 57–65; PULSE 75–85; RESP 18; TEMP 36.1–36.6; O2SAT 92–98
[2024-04-27] MEDS: AMOXICILLIN/CLAVULANATE K 875-125 MG TAB 1 TABLET PO (08:10)
[2024-04-27] MEDS: CHOLECALCIFEROL 1,000 UNITS TABLET 1000 UNITS PO (08:10)
[2024-04-27] MEDS: LOSARTAN POTASSIUM 50 MG TABLET PO (08:10)
[2024-04-27] MEDS: ENOXAPARIN 40 MG/0.4 ML SYRINGE SUB-Q (08:10)
[2024-04-27] MEDS: estradioL 1 MG TABLET PO (08:10)
[2024-04-27] MEDS: MAGNESIUM OXIDE 200 MG TABLET PO (08:10)
[2024-04-27] MEDS: guaiFENesin 12 HR 600 MG TABCR PO ×2 (08:10→20:32)
[2024-04-27] MEDS: polyethylene glycoL 3350 17 GM POWD.PACK PO (08:11)
[2024-04-27] MEDS: VERAPAMIL HCL ER 240 MG TABLET.ER PO (08:11)
[2024-04-27] MEDS: PANTOPRAZOLE 40 MG TABLET PO (08:11)
[2024-04-27] MEDS: SIMVASTATIN 10 MG TABLET PO (08:11)
[2024-04-27] MEDS: MULTIVITAMINS THERAPEUTIC TAB (*BKC) 1 TABLET PO (08:11)
--- NOTE | 2024-04-27 15:20 | PM.IMPN ---
Progress Note: A&P Assessment and Plan (1) Hyponatremia: Code(s): E87.1 - Hypo-osmolality and hyponatremia Status: Acute (2) Atypical pneumonia: Code(s): J18.9 - Pneumonia, unspecified organism Status: Acute (3) Acute hypoxic respiratory failure: Code(s): J96.01 - Acute respiratory failure with hypoxia Status: Acute (4) Pneumonia: Code(s): J18.9 - Pneumonia, unspecified organism Status: Acute Plan # atypical pneumonia -patient with productive cough and leukocytosis, improving -antibiotics: Completing azithromycin and Augmentin -wean O2 as tolerated, down to 1 L oxygen nasal cannula -PT OT consulted -p.r.n. albuterol, ipratropium -guaifenesin for cough # chronic conditions -anxiety/depression: P.r.n. Xanax -supplements: Vitamin-D, magnesium oxide, multivitamin -estrogen deficiency: On estradiol -allergies: Flonase -GERD: Protonix -hyperlipidemia: Simvastatin -essential hypertension: Losartan, verapamil -constipation: MiraLax Diet: Regular DVT prophylaxis: Lovenox Code status: Full code Disposition: Home tomorrow Time Spent With Patient Time: 35 minutes Subjective Date/time seen: 04/27/24 15:20 Interval history: Patient seen and examined. She is doing well no new complaints. We will wean down to 1 L oxygen via nasal cannula. She is finishing azithromycin, continue Rocephin for her pneumonia. Plan for discharge tomorrow, if unable to wean off oxygen may need to discharge home with oxygen. She states she had COVID a year ago and at that time required oxygen for a couple weeks after hospitalization. Patient denies fever, chills, vomiting, diarrhea. She endorses dyspnea and weakness. Review of Systems Review of Systems: 10 point ROS complete, negative other than what is specified in HPI. Exam Narrative: - GENERAL: Pleasant older woman in no acute distress. - EYES: EOMI. Anicteric. - HENT: Moist mucous membranes. - LUNGS: Clear to auscultation bilaterally, no wheezing, rhonchi, or rales. Breathing comfortably on 1L O2 by nasal cannula - CARDIOVASCULAR: Regular rate and rhythm. No murmur. No JVD. - ABDOMEN: Soft, non-tender and non-distended. No palpable masses. - EXTREMITIES: No edema. Peripheral pulses 2+. Non-tender. - NEUROLOGIC: No focal neurological deficits. CN II-XII grossly intact. - PSYCHIATRIC: Awake, Alert and oriented x 3. Appropriate mood and affect. - SKIN: No rashes or lesions. Warm. - LYMPH: No cervical lymphadenopathy. Objective Data Vital Signs Vital Signs: Vital Signs - 24 hr 04/26/24 19:31 04/26/24 20:44 04/27/24 03:54 Temperature 36.2 C L 36.1 C L Pulse Rate 78 84 Respiratory Rate 18 18 Blood Pressure 133/65 135/62 Pulse Oximetry 96 96 98 Oxygen Delivery Nasal Cannula Oxygen Flow Rate 3 04/27/24 08:14 04/27/24 08:00 Temperature Pulse Rate 85 Respiratory Rate Blood Pressure 133/57 L Pulse Oximetry 94 94 Oxygen Delivery Nasal Cannula Oxygen Flow Rate 1 Intake/Output Intake/Output: Intake & Output 04/24/24 04/25/24 04/26/24 04/27/24 23:59 23:59 23:59 23:59 Intake Total 4170 1110 1020 730 Output Total 3100 2600 3050 500 Balance 1070 -1490 -2030 230 Meds/Results Medications: Active Medications Generic Name Dose Route Start Last Admin Trade Name Freq PRN Reason Stop Dose Admin Acetaminophen 650 mg 04/22/24 23:31 Acetaminophen 325 Mg Tablet PO Q4H PRN Mild Pain (1-3) or Fever Albuterol 2.5 mg 04/23/24 15:00 Albuterol Sulfate Neb 2.5 Mg/3 Ml Inh INHALATION Q4HRT PRN Shortness Of Breath Alprazolam 0.25 mg 04/23/24 10:13 04/23/24 11:20 Alprazolam (*Crx) 0.25 Mg Tablet PO 0.25 mg TID PRN Administration Anxiety Azelastine HCl 1 spray 04/23/24 01:48 Azelastine Hcl Nasal 0.1% 137 Mcg/Spr 30 Ml Btl NASAL Q12HR PRN Nasal Congestion Enoxaparin Sodium 40 mg 04/24/24 09:00 04/27/24 08:10 Enoxaparin
[2024-04-28 04:42] LABS: Hematocrit 37.9 % (37.0-47.0); Mean Corpuscular HGB Conc 31.7 g/dl (32-36); Mean Corpuscular Hemoglobin 29.6 pg (26-34); Mean Corpuscular Volume 93.3 fl (80-100); Mean Platelet Volume 8.9 fl (7.4-10.4); Platelet Count Result 335 k/mm3 (150-375); Red Blood Count 4.06 M/mm3 (4.2-5.4); Red Cell Distribution Width 12.8 % (11.5-14.5); White Blood Count 4.9 K/mm3 (4.5-10.0)
[2024-04-28 04:55] LABS: Anion Gap 3 mmol/L (4-12); Blood Urea Nitrogen 7 mg/dL (7-17); Calcium 8.6 mg/dL (8.4-10.2); Carbon Dioxide 31 mmol/L (22-30); Chloride 100 mmol/L (98-107); Estimated CRCL calculation 69 ml/min; Estimated Glomerular Filt Rate > 60; Glucose 95 mg/dL (65-110); Magnesium 2.1 mg/dL (1.6-2.3); Sodium 134 mmol/L (137-145)
[2024-04-28 05:11] VITALS: BP 137/67; PULSE 88; RESP 18; TEMP 36.9; O2SAT 94
[2024-04-28] MEDS: LOSARTAN POTASSIUM 50 MG TABLET PO (08:46)
[2024-04-28] MEDS: MULTIVITAMINS THERAPEUTIC TAB (*BKC) 1 TABLET PO (08:47)
[2024-04-28] MEDS: SIMVASTATIN 10 MG TABLET PO (08:47)
[2024-04-28] MEDS: ENOXAPARIN 40 MG/0.4 ML SYRINGE SUB-Q (08:47)
[2024-04-28] MEDS: MAGNESIUM OXIDE 200 MG TABLET PO (08:47)
[2024-04-28] MEDS: VERAPAMIL HCL ER 240 MG TABLET.ER PO (08:47)
[2024-04-28] MEDS: estradioL 1 MG TABLET PO (08:47)
[2024-04-28] MEDS: PANTOPRAZOLE 40 MG TABLET PO (08:47)
[2024-04-28] MEDS: guaiFENesin 12 HR 600 MG TABCR PO (08:47)
[2024-04-28] MEDS: polyethylene glycoL 3350 17 GM POWD.PACK PO (08:47)
[2024-04-28] MEDS: CHOLECALCIFEROL 1,000 UNITS TABLET 1000 UNITS PO (08:47)
--- NOTE | 2024-04-28 10:18 | PM.DS ---
DS: Admitting Diagnosis Discharge Date 04/28/24 Admitting Diagnosis Community-acquired pneumonia DS: Discharge Diagnosis Discharge Diagnosis (1) Hyponatremia: Code(s): E87.1 - Hypo-osmolality and hyponatremia Status: Acute (2) Atypical pneumonia: Code(s): J18.9 - Pneumonia, unspecified organism Status: Acute (3) Acute hypoxic respiratory failure: Code(s): J96.01 - Acute respiratory failure with hypoxia Status: Acute (4) Pneumonia: Code(s): J18.9 - Pneumonia, unspecified organism Status: Acute DS: Summary Hospital Course Reason for hospitalization: pneumonia, hypoxia Hospital Course: Patient is a 79-year-old female with past medical history of essential hypertension, GERD, DJD who presents to ED with cough, sputum production, body aches. patient found to likely atypical pneumonia considering scattered areas of reticular nodular opacities on chest x-ray and symptomatology. She was placed on a couple L of oxygen and treated with antibiotic. Patient completed a 5 day course of Rocephin azithromycin for pneumonia. Of note patient had some hyponatremia presentation with sodium at 127, which improved with supportive care, 134 baseline at discharge. patient was weaned off of oxygen. patient was hospitalized from 04/22-04/28. at time of discharge patient's labs are stable, vitals stable, patient is stable for discharge home. No new prescriptions. Patient to follow-up with PCP in 1 week. Patient understands and agrees with plan. Status at Discharge Cognitive/behavioral status at discharge: baseline Time Spent with Patient Time attestation: Total time spent providing and/or coordinating discharge services: 35 minutes Exam Narrative: - GENERAL: Pleasant older woman in no acute distress. - EYES: EOMI. Anicteric. - HENT: Moist mucous membranes. - LUNGS: Clear to auscultation bilaterally, no wheezing, rhonchi, or rales. nonlabored respirations on room air - CARDIOVASCULAR: Regular rate and rhythm. No murmur. No JVD. - ABDOMEN: Soft, non-tender and non-distended. No palpable masses. - EXTREMITIES: No edema. Peripheral pulses 2+. Non-tender. - NEUROLOGIC: No focal neurological deficits. CN II-XII grossly intact. - PSYCHIATRIC: Awake, Alert and oriented x 3. Appropriate mood and affect. - SKIN: No rashes or lesions. Warm. - LYMPH: No cervical lymphadenopathy. DS: Data Data Completed and Pending Labs on day of discharge: Labs from last 24 hours 04/28/24 04:19 WBC 4.9 RBC 4.06 L Hgb 12.0 Hct 37.9 MCV 93.3 MCH 29.6 MCHC 31.7 L RDW 12.8 Plt Count 335 MPV 8.9 Sodium 134 L Potassium 4.0 Chloride 100 Carbon Dioxide 31 H Anion Gap 3 L BUN 7 Creatinine 0.50 L Estim Creat Clear Calc 69 Estimated GFR > 60 Glucose 95 Calcium 8.6 Magnesium 2.1 Imaging Radiologist's impression: CXR 04/25/24 Impression: 1: Bilateral interstitial infiltrates with more focal consolidation of the lower lobes. Differential diagnosis includes mild edema, atypical pneumonia and/or atelectasis Discharge Plan Discharge Attending physician on discharge: Janelle Vernon Discharging Clinician: Janelle Vernon Anticipated Discharge Date/Time: 04/28/24 10:12 Patient Disposition: Home, Self-Care Activity: as tolerated Diet: regular Discharge Instructions: You have completed antibiotics for your pneumonia. We have come off the oxygen. You may have some residual cough for the next few week. Please follow-up with your PCP in 1 week. no new prescriptions. Patient Instructions: Antibiotic Form, Bacterial Pneumonia (DC) Patient Language: Macedonian Stand Alone Forms: General Discharge Information Follow-up/Referrals: Carlos Cast MD [Primary Care Provider] - 1 Week Discharge Medications: Continued multivitamin Tablet 1 tablet PO DAILY cholecalciferol (vitamin D3) 1,000 unit capsule 1,000 unit PO DAILY m
[2024-04-28 10:45] VITALS: PULSE 96; O2SAT 92
[2024-04-28 11:05] VITALS: PULSE 105; O2SAT 91
[2024-04-28 11:15] VITALS: PULSE 95; O2SAT 92
--- NOTE | 2024-04-28 11:21 | PCRCNOTE ---
Home O2 eval complete. Patient does not require Home O2 at this time. RN notified.
== END 2024-04-28 12:20 | disposition home or self-care (01) | DRG 193 ==
LOC: ANHED 22:01 → ANH2MED 04-23 01:17
PROVIDERS: Family Medicine; Admitting Provider Internal Medicine; Emergency Provider Physician Assistant; PCP Family Medicine; Visit Provider Student in an Organized Health Care Education/Training Program
DX: J18.9 Pneumonia, unspecified organism (principal); J96.01 Acute respiratory failure with hypoxia; E87.1 Hypo-osmolality and hyponatremia; E78.5 Hyperlipidemia, unspecified; I10 Essential (primary) hypertension; F41.8 Other specified anxiety disorders; K21.9 Gastro-esophageal reflux disease without esophagitis; M17.0 Bilateral primary osteoarthritis of knee; K59.00 Constipation, unspecified; M85.80 Other specified disorders of bone density and structure, unspecified site; M19.90 Unspecified osteoarthritis, unspecified site; Z96.643 Presence of artificial hip joint, bilateral; Z96.651 Presence of right artificial knee joint; Z20.822 Contact with and (suspected) exposure to COVID-19; Z90.49 Acquired absence of other specified parts of digestive tract; Z90.710 Acquired absence of both cervix and uterus; Z87.891 Personal history of nicotine dependence
CPT/HCPCS: 36415; 71045; 80048; 80053; 81001; 83605; 83735; 83880; 84100; 84145; 84484; 85025; 85027; 85610; 85730; 87040; 87070; 87086; 87088; 87205; 87637; 93005; 94618; 94667; 96361; 96365; 96375; 97110; 97162; 97165; 97530; 97535; 99285; A9270; G0378; J0456; J0696; J1650; J2919; J7030; J7050

== ENCOUNTER 2024-05-26 09:00 | Outpatient (CLI) | payer BC, SELFPAY ==
[2024-05-26 19:51] LABS: Anion Gap 4 mmol/L (4-12); Blood Urea Nitrogen 12 mg/dL (7-17); Calcium 8.9 mg/dL (8.4-10.2); Carbon Dioxide 31 mmol/L (22-30); Chloride 100 mmol/L (98-107); Cholesterol 174 mg/dL (0-200); Estimated Glomerular Filt Rate > 60; Glucose 85 mg/dL (65-110); HDL Direct 88 mg/dL; Potassium 4.5 mmol/L (3.4-5.0); Sodium 135 mmol/L (137-145); Triglycerides 97 mg/dL (<150)
[2024-05-26 20:02] LABS: LDL Cholesterol Direct 70 mg/dL
== END 2024-05-26 09:01 | disposition home or self-care (01) ==
LOC: ANHGOSHLAB 09:01
PROVIDERS: PCP Family Medicine; Visit Provider Student in an Organized Health Care Education/Training Program
DX: E87.1 Hypo-osmolality and hyponatremia (principal); E78.5 Hyperlipidemia, unspecified
CPT/HCPCS: 36415; 80048; 80061

== ENCOUNTER 2024-05-26 09:14 | Outpatient (CLI) | payer BC, SELFPAY ==
--- NOTE | ~2024-05-26 | XR_ITS ---
Clinical Indication: Pneumonia PA and lateral views of the chest: Comparison: 04/25/2024 Findings: The lungs are clear, without evidence of focal consolidation or pleural effusion. Cardiome diastinal silhouette is within normal limits. Osseous structures are intact. Small to moderate hiatal hernia present. Impression: Clear lungs. Small to moderate hiatal hernia. Reviewed, dictated and finalized at location . Impression: Clear lungs. Small to moderate hiatal hernia.
== END 2024-05-26 09:15 ==
LOC: GOSHIMG 09:15
PROVIDERS: PCP Family Medicine; Visit Provider Student in an Organized Health Care Education/Training Program
DX: J18.9 Pneumonia, unspecified organism (principal)
CPT/HCPCS: 71046

== ENCOUNTER 2024-06-18 09:47 | Outpatient (CLI) | payer BC, SELFPAY ==
[2024-06-18 10:16] LABS: Hematocrit 45.9 % (37.0-47.0); Hemoglobin 14.5 g/dL (12.0-15.0)
--- NOTE | 2024-06-18 10:20 | ECG_ITS ---
Test Date: 2024-06-18 10:32:06 Measurements Intervals [place]yer Rate: 72 P: 88 AK: 126 QRS: 56 QRSD: 82 T: 38 QT: 375 QTc: 413 Interpretive Statements SINUS RHYTHM POSSIBLE LEFT ATRIAL ENLARGEMENT BORDERLINE ST ABNORMALITY- ANTEROLAT/INF LEADS BASELINE ARTIFACT- I, II, III, AVR, AVL, AVF, V4-V6 BORDERLINE ECG Compared to ECG 04/22/2024 22:13:16 No significant changes Electronically Signed On 06-18-2024 11:42:02 CDT by Oren Land D.O.
[2024-06-18 10:28] LABS: Albumin Level 4.5 g/dL (3.5-5.1); Estimated Glomerular Filt Rate > 60; Glucose 95 mg/dL (65-110)
== END 2024-06-18 09:48 | disposition home or self-care (01) ==
LOC: ANHLAB 09:49
PROVIDERS: PCP Family Medicine; Visit Provider Orthopaedic Surgery
DX: Z01.818 Encounter for other preprocedural examination (principal); I10 Essential (primary) hypertension; E78.5 Hyperlipidemia, unspecified; E87.1 Hypo-osmolality and hyponatremia; M17.12 Unilateral primary osteoarthritis, left knee
CPT/HCPCS: 36415; 82040; 82565; 82947; 85014; 85018; 93005

== ENCOUNTER 2024-07-15 10:26 | Outpatient (CLI) | payer BC, SELFPAY ==
[2024-07-15 13:33] LABS: Basophils Absolute Auto 0.1 K/mm3 (0.0-0.1); Basophils Percent Auto 1.3 % (0.2-1.2); Eosinophils Absolute Auto 0.1 K/mm3 (0-0.3); Eosinophils Percent Auto 2.2 % (0-4.4); Hematocrit 46.5 % (37.0-47.0); Hemoglobin 14.7 g/dL (12.0-15.0); Immature Granulocyte Absolute 0.01 K/mm3 (0.00-0.031); Immature Granulocyte Percent A 0.2 % (0-0.5); Lymphocytes Absolute Auto 1.17 K/mm3 (0.9-3.2); Lymphocytes Percent Auto 25.2 % (18.3-44.2); Mean Corpuscular HGB Conc 31.6 g/dl (32-36); Mean Corpuscular Hemoglobin 30.4 pg (26-34); Mean Corpuscular Volume 96.3 fl (80-100); Mean Platelet Volume 10.1 fl (7.4-10.4); Monocytes Absolute Auto 0.4 K/mm3 (0.1-0.6); Monocytes Percent Auto 8.6 % (2.6-8.5); Neutrophils Absolute Auto 2.9 K/mm3 (1.3-6.7); Neutrophils Percent Auto 62.5 % (45.5-73.1); Platelet Count Result 306 k/mm3 (150-375); Red Blood Count 4.83 M/mm3 (4.2-5.4); Red Cell Distribution Width 12.7 % (11.5-14.5); White Blood Count 4.7 K/mm3 (4.5-10.0)
[2024-07-15 14:41] LABS: Alanine Aminotransferase 17 U/L (6-35); Albumin Level 4.3 g/dL (3.5-5.1); Alkaline Phosphatase 57 U/L (38-126); Anion Gap 7 mmol/L (4-12); Aspartate Amino Transferase 38 U/L (14-36); Bilirubin,Total 0.9 mg/dL (0.2-1.3); Blood Urea Nitrogen 12 mg/dL (7-17); Carbon Dioxide 32 mmol/L (22-30); Chloride 95 mmol/L (98-107); Cholesterol 183 mg/dL (0-200); Estimated Glomerular Filt Rate > 60; Glucose 88 mg/dL (65-110); HDL Direct 84 mg/dL; Potassium 4.6 mmol/L (3.4-5.0); Sodium 134 mmol/L (137-145); Triglycerides 108 mg/dL (<150)
[2024-07-15 14:49] LABS: Vitamin D 25 Hydroxy 46.5 ng/mL
[2024-07-15 14:52] LABS: LDL Cholesterol Direct 68 mg/dL
[2024-07-15 15:32] LABS: Folic Acid > 20.0 ng/mL (2.76->20)
[2024-07-15 15:34] LABS: Hemoglobin A1C 5.5 % (<5.7)
== END 2024-07-15 10:27 | disposition home or self-care (01) ==
PROVIDERS: Student in an Organized Health Care Education/Training Program; PCP Family Medicine; Visit Provider Nurse Practitioner Family
DX: R41.3 Other amnesia (principal); E87.1 Hypo-osmolality and hyponatremia; I10 Essential (primary) hypertension; Z00.00 Encounter for general adult medical examination without abnormal findings; Z91.09 Other allergy status, other than to drugs and biological substances; E78.5 Hyperlipidemia, unspecified; R73.03 Prediabetes
CPT/HCPCS: 36415; 80053; 80061; 82306; 82607; 82746; 83036; 84443; 85025

== ENCOUNTER 2024-08-03 11:55 | Outpatient (CLI) | payer BC, SELFPAY ==
[2024-08-03 14:03] LABS: Urine Cotinine NEGATIVE
[2024-08-03 14:54] LABS: MRSA (PCR) NOT DETECTED (NOT DETECTE)
== END 2024-08-03 11:56 | disposition home or self-care (01) ==
PROVIDERS: PCP Family Medicine; Visit Provider Orthopaedic Surgery
DX: M17.12 Unilateral primary osteoarthritis, left knee (principal); Z01.818 Encounter for other preprocedural examination
CPT/HCPCS: 80307; 87641

== ENCOUNTER 2024-08-11 09:26 | Outpatient (CLI) | payer BC, SELFPAY | END 2024-08-11 09:27 | disposition home or self-care (01) | LOC: ANHSURGERY 09:36 | PROVIDERS: PCP Family Medicine; Visit Provider Orthopaedic Surgery | DX: M17.12 Unilateral primary osteoarthritis, left knee (principal); Z01.818 Encounter for other preprocedural examination | CPT/HCPCS: 36415; 86850; 86900; 86901; 86922 ==

== ENCOUNTER 2024-08-23 00:24 | Day surgery (SDC) | payer BC, SELFPAY ==
--- NOTE | 2024-08-03 12:06 | PC.NURSE ---
Addendum entered by Kamille Masters RN 08/03/24 12:57: Patient also told to hold her ASA for [address] Black. Date to take last dose is 08/15/24. Original Note: Report to the Outpatient Waiting Room, entrance under the [facility] located off [facility], at time _10:00am____on date 08/23/24 . Planned Procedure Time: _12:00pm .? Time changes happen often and if your time is changed the preop area will call you the afternoon before. - You and your visitor will be asked to self-screen and do not enter if you have any COVID symptoms. Please call surgeon if you need to reschedule. - A mask is optional within the hospital at this time. Patients may have clear liquids (water, carbonated beverages, clear teas, apple juice) until 3 hours prior to surgery (09:00am) with a maximum of 20 ounces. - No food from midnight until time of surgery and no smoking Take only the following medications with a SIP of water on the morning of surgery: __Verapamil . Tylenol if needed DO NOT STOP ANY OF YOUR OTHER PRESCRIPTION MEDICATIONS PRIOR TO SURGERY EXCEPT THE FOLLOWING Medications to discontinue per physician Hold all vitamins, supplements, probiotics and herbs 3 days prior per Anesthesia Date to take last dose___08/19/24 Please no make-up, nail icelandic, hairspray, perfume, deodorant, or body powder the day of surgery.? No jewelry (including any body piercings) or valuables the day of surgery, leave them at home.? Please take a shower or bath the night before, or the morning of, surgery with an antibacterial soap.? Wear comfortable, loose fitting clothing.? Children are encouraged to wear pajamas. - Jewelry must be removed prior to entering the operating room.? Rings and piercings that are not removed may be cut off. - The hospital will not accept responsibility for valuables.? - Please leave all valuables, including medications, at home the day of surgery. If you are going home after surgery, a licensed high lift driver must drive you home.? - NO public transportation without another adult if you receive anesthesia. - We recommend that an adult stay with you for 24 hours following discharge. - We also recommend that you do not drive, make important decision, drink alcoholic beverages, or take any drugs that were not prescribed by your health care provider for at least 24 hours after your discharge time. Pt to attend Joint Class on 08/11/24 and pt to come to LAB at 0930 prior to class for TYPE & SCREEN as requested Follow any additional instructions given to you from your surgeon. Prep per Dr Black instructions. Telephone instructions given to __patient and asked if any additional questions and then verbalized understanding. Patient advised to call surgeon office or pre surgery nurse liaison [phone] if any additional questions.
[2024-08-03 12:21] VITALS: BP 140/62; PULSE 77; RESP 16; TEMP 36.8; O2SAT 98; BMI 23.9
[2024-08-23] VITALS (11 sets, daily range): BP systolic 94–119; BP diastolic 45–90; PULSE 80–95; RESP 12–20; TEMP 36.4–37.4; O2SAT 95–100; BMI 23.2
--- NOTE | ~2024-08-23 | XR_ITS ---
EXAMINATION: [id number] DATE: 08/23/2024 15:29 INDICATION: Total left knee arthroplasty. Postop. TECHNIQUE: 2 views of left knee were obtained. COMPARISON: None. FINDINGS: There is a total left knee arthroplasty with patellar resurfacing in near-anatomic alignmen t. No fracture. There is gas in the knee joint and soft tissues, consistent with recent surgery. IMPRESSION: 1. Total left knee arthroplasty in near-anatomic alignment. Reviewed, dictated and finalized at location A.
--- NOTE | 2024-08-23 10:55 | SUR.PREOP ---
1055- Notified Dr. Black's office of scab to operative site, left knee. SHALA Jones to bedside to assess left knee scab -OK to proceed with surgery per SHALA Lindquist.
[2024-08-23] MEDS: LACTATED RINGERS 1,000 ML 30 ML IV CONT ×2 (11:15→15:05)
[2024-08-23] MEDS: ACETAMINOPHEN 500 MG TABLET 1000 MG PO (11:19)
[2024-08-23] MEDS: TRANEXAMIC ACID 1,000MG/ISO100 1,000 MG/100 ML BAG 200 MG IVPB (11:21)
--- NOTE | 2024-08-23 11:41 | WPDANESEPPF ---
Anes - Initial Pre Proc Eval Procedure: Operation Date: 08/23/24 12:00 Proposed Procedures p Left Total Knee Arthroplasty - Bull Black MD Date/Time: 08/23/24 11:41 Surgeon: Bull Black MD Pre Op Diagnosis: primary oa left knee Patient Data Age: 79 Gender: F Height: 1.65 m Weight: 63.3 kg Last Vital Signs Temp 97.6 F 08/23/24 10:10 Pulse 87 08/23/24 10:10 Resp 18 08/23/24 10:10 BP 119/64 08/23/24 10:10 Pulse Ox 96 08/23/24 10:10 O2 Del Method Room Air 08/23/24 10:10 Allergies Allergy/AdvReac Type Severity Reaction Status Date / Time lisinopril AdvReac Mild Cough Verified 08/23/24 10:23 Home Medications Medication Instructions Recorded Confirmed Type cholecalciferol (vitamin D3) 25 1,000 unit PO DAILY 10/12/19 08/23/24 History mcg (1,000 unit) capsule multivitamin 1 tablet PO DAILY 10/12/19 08/23/24 History azelastine 137 mcg-fluticasone 50 1 spray intranasal BID PRN Nasal 02/23/23 08/18/24 History mcg/spray nasal spray Congestion magnesium 200 mg tablet 200 mg PO DAILY 03/23/24 08/23/24 History omeprazole 20 mg capsule,delayed 20 mg PO DAILY #90 caps 04/20/24 08/18/24 Rx release estradiol 1 mg tablet 1 mg PO DAILY #90 tabs 04/21/24 08/18/24 Rx losartan 50 mg tablet 50 mg PO DAILY #90 tabs 04/21/24 08/18/24 Rx simvastatin 40 mg tablet 40 mg PO DAILY #90 tabs 07/22/24 08/18/24 Rx verapamil 240 mg tablet,extended 240 mg PO DAILY #90 tabs 07/22/24 08/23/24 Rx release acetaminophen 500 mg capsule 1,000 mg PO PRN 08/03/24 08/18/24 History Patient hx anesthesia problems: none Family hx anesthesia problems: none Results Review: All pre-operative results and documents have been reviewed as part of the pre-operative evaluation. FOR[facility], [facility] Past Medical History Medical History Cataract Dyslipidemia Environmental allergies Essential (primary) hypertension GERD without esophagitis History of esophageal stricture 12/2016 History of leukocytosis 2014 Hyperlipidemia Osteoarthritis of both knees Osteoarthritis of right knee Osteopenia Postmenopausal state TMJ (temporomandibular joint disorder) Surgical History Surgical History History of appendectomy History of endoscopy 01/20/12 02/25/18 History of hysterectomy 03/07/1998 History of left hip replacement 05/12/18 History of right hip replacement 06/15/19 History of right knee joint replacement 12/2019 Hx of tonsillectomy (~1949) Hx of wisdom tooth extraction Family History Family History Son Hypertension Mother No problems noted. Father Parkinson disease Social History Social History Social History: She lives alone and has 3 children. She is . She worked at [employer] prior to getting . She stated home and raised her children. Then once her children were out of the house she worked various jobs including working at [employer]. Code status full code Smoking packs per day: 1 Smoking cigarettes per day: 20.0 Years smoked: 25 Smoking pack-years: 25.00 Smoking status: Former smoker Tobacco type: cigarettes Second hand tobacco smoke exposure: No Smoking end date: 11/24/02 Alcohol intake: never Substance use: never Substance use type: does not use Do You Feel Safe in your Home?: Yes Lack of Transportation: No Lack of Food: Never True Current Housing: I Have Housing Concerned About Future Housing: No Difficulty Paying Gas/Electric Bills: No Difficulty Paying for Meds: No Currently Unemployed: No Education: High School Diploma/GED Difficulty w/ Childcare or Family Care: No Living arrangements: with family Additional living arrangements comments: Daughter Gender identity (if verba
--- NOTE | 2024-08-23 11:47 | WPDHPUPDATE1 ---
History and Physical Update Update Date/Time: 08/23/24 11:47 Tiny eschar on the knee. Okay to proceed. History and Physical has been reviewed, including an updated exam of the patient. There are NO changes in the patient's condition. Risks, benefits, and alternatives have been discussed and questions answered. Patient agrees to proceed with procedure.
[2024-08-23] MEDS: ceFAZolin 2 GM/D5W 50 ML 2 GM/50 ML BAG IVPB ×2 (12:07→20:51)
[2024-08-23] MEDS: SODIUM CHLORIDE 0.9% IV 37.7 ML, MORPHINE SULFATE INJ (*CRX) 2 MG, ROPivacaine HCL 1% 2... INFILTRATE (12:24)
[2024-08-23] MEDS: TRANEXAMIC ACID 1,000 MG/10 ML AMPUL 1000 MG IV PUSH (14:23)
--- NOTE | 2024-08-23 14:56 | W.PM.PROC2 ---
Procedure Note - Detailed Date of Procedure 08/23/24 Pre-op Diagnosis Primary osteoarthritis left knee Post-op Diagnosis Same Procedure Performed Calipered, kinematically aligned total knee replacement left knee. Surgeon Bull Black MD [employer] Service Technician Allison Ross PA-C Anesthesia General Indications Severe valgus arthritis of the knee. Failed conservative treatment. Findings According to the calipered kinematic alignment principles, the knee was balanced by the following verification checks incorporating 6 caliper measurements, using an insert goniometer to select the insert thickness, and adjusting the tibial resection following the kinematic alignment algorithm (see figure 160.10 published in [employer] chapter on kinematic alignment total knee arthroplasty.) The steps verified the femoral and tibial components were kinematically aligned coincident to the patient's pre arthritic joint lines, which closely restored the [place] tibial compartment forces and ligament laxities without ligament release. The [place] EffdonK SperiKA knee, designed specifically for kinematic alignment, fit optimally. The record of verification checks were documented and scanned into the chart. Distal Femoral Resection: Distal Medial 6 mm(cartilage worn), Distal Lateral 6 mm(cartilage worn) Target thickness of 8mm Unworn, 6mm Worn (No Cartilage). Posterior Femoral Resection: Posterior Medial 7 mm, Posterior Lateral 5 mm(cartilage worn) Target thickness of 7mm Unworn, 5mm Worn (No Cartilage). Description of Procedure General anesthesia was administered. A well-padded tourniquet was placed high on the thigh. The limb was prepped and draped in the usual sterile fashion. The limb was exsanguinated and the tourniquet inflated to 300 mmHg during exposure, femoral prep and cementation. A longitudinal incision was created over the midline of the knee. Sharp dissection was taken through subcutaneous tissues. Electrocautery was used for hemostasis. A trivector approach to the knee joint was performed. The ACL, anterior horns of the menisci, and fat pad were excised, and a subperiosteal dissection was carried along the posterior medial border of the tibia. The thickness of the [place] patella was measured with a caliper. The patella was resected using the oscillating saw. The best fitting anatomic patella button was selected. The fixation holes were drilled. When the patella and patella buttons combined thickness was thicker than the [place] patella, the patella was recut. Starting midway between the top of the notch in the anterior femoral cortex, I drilled a 9 mm diameter hole parallel to the anterior cortex to minimize flexion of the femoral component and promote patella tracking. I verified the existence of a 5-10 mm bone bridge between the posterior aspect of the hole and the anterior limit of the intercondylar notch. An intraosseous positioning bishnu was inserted 10 cm into the femur perpendicular to the distal joint line and parallel to the anterior cortex. I used a distal femoral referencing guide that compensated 2 mm when the cartilage was worn on the distal medial femoral condyle, and 2 mm when the cartilage was worn on the distal lateral femoral condyle. The basis for setting the distal and posterior femoral resection guide is knowing that the varus and valgus grade II to IV Kellegren-Darian osteoarthritic knees have negligible bone wear at 0? and 90? and that the mean full-thickness cartilage wear approximates 2 mm. I measured the thickness of distal femoral resections with a caliper to +/- 0.5 mm. The thickness of each resection was adjusted to match the thickness of the respective condyle of the femoral component within 0.5 mm of target after compensating for cartilage wear and kerf. When the distal resection was 1-2 mm too thin, a recut guide was used to adjust the cut. When the distal resection was too thick, a 1 or 2 mm thick washer was fixed to the back
[2024-08-23] MEDS: ARTIFICIAL TEARS OPHTH SOLN 15 ML BOTTLE 1 DROP EACH EYE (15:57)
[2024-08-23] MEDS: PROPARACAINE HCL 0.5% 15 ML OPHTH SOLN 1 DROP EACH EYE (16:14)
[2024-08-23] MEDS: DICLOFENAC SODIUM 0.1% OPHTH SOLN 2.5 ML BOTTLE 1 DROP EACH EYE (16:15)
--- NOTE | 2024-08-23 16:38 | ADMGEN ---
This patient, Jannet Smiley, was admitted to Medical Room 241-. Patient/family oriented to hospital policies and general routines including ID bracelet, bed and alarms, visiting hours, pain management, procedures, bathroom and other care routines, personal items, smoking policy, room service/diet, and visiting hours. Information on how to activate the Rapid Response Team has been discussed. Patient/Family are encouraged to report perceived risks to care and to ask questions if they do not understand what they are told or what they should do.
[2024-08-23] MEDS: ACETAMINOPHEN 325 MG TABLET 650 MG PO (17:11)
[2024-08-23] MEDS: predniSONE 5 MG TABLET PO (17:11)
[2024-08-23] MEDS: oxyCODONE/ACETAMINOPHEN (*CRX) 5-325 MG TABLET 1 TABLET PO (20:50)
[2024-08-23] MEDS: FAMOTIDINE 20 MG TABLET PO (20:50)
[2024-08-23] MEDS: CYCLOBENZAPRINE HCL 10 MG TABLET PO (20:50)
[2024-08-23] MEDS: ASPIRIN 81 MG ENTERIC TABLET PO (20:50)
[2024-08-24] MEDS: ACETAMINOPHEN 325 MG TABLET 650 MG PO ×2 (00:20→05:53)
[2024-08-24 00:43] VITALS: BP 112/50; PULSE 95; RESP 18; TEMP 36.6; O2SAT 95
[2024-08-24 04:17] VITALS: BP 173/92; PULSE 100; RESP 18; TEMP 36.7; O2SAT 97
[2024-08-24] MEDS: ceFAZolin 2 GM/D5W 50 ML 2 GM/50 ML BAG IVPB (04:55)
[2024-08-24] MEDS: DICLOFENAC SODIUM 0.1% OPHTH SOLN 2.5 ML BOTTLE 1 DROP EACH EYE (05:54)
[2024-08-24 06:29] LABS: Basophils Percent Auto 0.2 % (0.2-1.2); Hematocrit 37.1 % (37.0-47.0); Hemoglobin 11.8 g/dL (12.0-15.0); Immature Granulocyte Absolute 0.08 K/mm3 (0.00-0.031); Immature Granulocyte Percent A 0.7 % (0-0.5); Lymphocytes Absolute Auto 0.82 K/mm3 (0.9-3.2); Mean Corpuscular HGB Conc 31.8 g/dl (32-36); Mean Corpuscular Hemoglobin 29.9 pg (26-34); Mean Corpuscular Volume 93.9 fl (80-100); Mean Platelet Volume 9.3 fl (7.4-10.4); Monocytes Absolute Auto 0.7 K/mm3 (0.1-0.6); Monocytes Percent Auto 5.6 % (2.6-8.5); Neutrophils Absolute Auto 10.2 K/mm3 (1.3-6.7); Neutrophils Percent Auto 86.5 % (45.5-73.1); Platelet Count Result 321 k/mm3 (150-375); Red Blood Count 3.95 M/mm3 (4.2-5.4); Red Cell Distribution Width 12.2 % (11.5-14.5); White Blood Count 11.7 K/mm3 (4.5-10.0)
[2024-08-24 06:38] LABS: Anion Gap 3 mmol/L (4-12); Blood Urea Nitrogen 11 mg/dL (7-17); Calcium 8.5 mg/dL (8.4-10.2); Carbon Dioxide 30 mmol/L (22-30); Chloride 97 mmol/L (98-107); Estimated CRCL calculation 56 ml/min; Estimated Glomerular Filt Rate > 60; Glucose 111 mg/dL (65-110); Potassium 4.7 mmol/L (3.4-5.0); Sodium 130 mmol/L (137-145)
[2024-08-24] MEDS: ASPIRIN 81 MG ENTERIC TABLET PO (08:41)
[2024-08-24] MEDS: SENNA/DOCUSATE SODIUM TABLET 2 TAB PO (08:41)
[2024-08-24] MEDS: MULTIVITAMINS THERAPEUTIC TAB (*BKC) 1 TABLET PO (08:42)
[2024-08-24] MEDS: VERAPAMIL HCL ER 240 MG TABLET.ER PO (08:42)
[2024-08-24] MEDS: FAMOTIDINE 20 MG TABLET PO (08:42)
[2024-08-24] MEDS: CHOLECALCIFEROL 1,000 UNITS TABLET 1000 UNITS PO (08:42)
[2024-08-24] MEDS: LOSARTAN POTASSIUM 50 MG TABLET PO (08:43)
[2024-08-24] MEDS: MAGNESIUM OXIDE 200 MG TABLET PO (08:44)
[2024-08-24] MEDS: estradioL 1 MG TABLET PO (08:44)
[2024-08-24] MEDS: PANTOPRAZOLE 40 MG TABLET PO (08:44)
[2024-08-24 09:45] VITALS: BP 111/47; PULSE 85; RESP 18; TEMP 36.7; O2SAT 95
--- NOTE | 2024-08-24 10:54 | PM.DS ---
DS: Admitting Diagnosis Discharge Date 08/24/24 Admitting Diagnosis Knee arthritis DS: Discharge Diagnosis Discharge Diagnosis (1) Status post total left knee replacement: Code(s): Z96.652 - Presence of left artificial knee joint Status: Acute Plan Postop day 1: Left total knee arthroplasty. Patient tolerated procedure well. No complications. Pain manageable with pain medication. No numbness or tingling. We had a lengthy discussion regarding postoperative wound care, limitations, expectations, and exercises. Patient shows good understanding. He has had initial physical therapy and is tolerating it well. DVT prophylaxis: 81 mg baby aspirin b.i.d. for 14 days. Pain medication: Percocet. Meloxicam. Prednisone. Patient has followup appointment with Dr. Black in 3 weeks. DS: Summary Hospital Course Reason for hospitalization: Total knee arthroplasty Hospital Course: Patient tolerated procedure well. Has had initial PT/OT. Status at Discharge Functional status at discharge: uses cane/walker Overall status at discharge: patient is progressing back to baseline Time Spent with Patient Time attestation: Total time spent providing and/or coordinating discharge services: Exam Narrative: Normal weight 79 y/o female. Resting comfortably in bed. Wearing compression socks bilaterally. Dressing intact with no drainage. Minimal swelling. Small area of ecchymosis medially. No erythema. No hematoma. Range of motion limited due to pain. Calf nontender. Neurologic status intact. No varicosities. Distal pulses palpable. DS: Data Data Completed and Pending Labs on day of discharge: Labs from last 24 hours 08/24/24 08/11/24 05:23 09:47 WBC 11.7 H RBC 3.95 L Hgb 11.8 L Hct 37.1 MCV 93.9 MCH 29.9 MCHC 31.8 L RDW 12.2 Plt Count 321 MPV 9.3 Immature Gran % (Auto) 0.7 H Neut % (Auto) 86.5 H Lymph % (Auto) 7.0 L [place] % (Auto) 5.6 Eos % (Auto) 0.0 Baso % (Auto) 0.2 Lymph # (Auto) 0.82 L [place] # (Auto) 0.7 H Eos # (Auto) 0.0 Baso # (Auto) 0.0 Abs Immat Gran (auto) 0.08 H Absolute Neuts (auto) 10.2 H Absolute Nucleated RBC 0.000 Nucleated RBC % 0.0 Sodium 130 L Potassium 4.7 Chloride 97 L Carbon Dioxide 30 Anion Gap 3 L BUN 11 Creatinine 0.60 L Estim Creat Clear Calc 56 Estimated GFR > 60 Glucose 111 H Calcium 8.5 Enhanced Crossmatch See Detail Discharge Plan Discharge Patient Disposition: Home, Self-Care Discharge Instructions: See green instructions sheets Stand Alone Forms: General Discharge Instructions Follow-up/Referrals: Allison Ross PA [Physician Golf Superintendent] - Discharge Medications: New meloxicam 15 mg tablet 15 mg PO DAILY Qty: 30 0RF Rx Instructions: Cut in half. Take 1/2 in morning and 1/2 at night. Take with food. Stop if stomach upset. prednisone 5 mg tablet 5 mg PO DAILY 21 Days Qty: 21 0RF aspirin 81 mg tablet,delayed release (DR/EC) 81 mg PO BID 14 Days Qty: 28 0RF oxycodone-acetaminophen 5-325 mg tablet 1 - 2 tablet PO Q4-6H PRN (Reason: pain) 7 Days Qty: 30 0RF Continued multivitamin Tablet 1 tablet PO DAILY cholecalciferol (vitamin D3) 1,000 unit capsule 1,000 unit PO DAILY magnesium 200 mg tablet 200 mg PO DAILY acetaminophen 500 mg Capsule 1,000 mg PO PRN azelastine-fluticasone 137-50 mcg/spray spray,non-aerosol 1 spray intranasal BID PRN (Reason: Nasal Congestion) Rx Instructions: administer into each nostril omeprazole 20 mg capsule,delayed release(DR/EC) 20 mg PO DAILY Qty: 90 1RF losartan 50 mg tablet 50 mg PO DAILY Qty: 90 1RF estradiol 1 mg tablet 1 mg PO DAILY Qty: 90 1RF verapamil 240 mg tablet extended release 240 mg PO DAILY Qty: 90 1RF simvastatin 40 mg tablet 40 mg PO DAILY Qty: 90 1RF
== END 2024-08-24 12:07 | disposition home or self-care (01) ==
LOC: ANHSURGERY 11:49 → ANH2MED 16:37
PROVIDERS: Physician Assistant Surgical; PCP Family Medicine; Visit Provider Orthopaedic Surgery
PROC: (CPT 27447; principal; 2024-08-23 12:00)
DX: M17.12 Unilateral primary osteoarthritis, left knee (principal); M25.762 Osteophyte, left knee; I10 Essential (primary) hypertension; E78.5 Hyperlipidemia, unspecified; K21.9 Gastro-esophageal reflux disease without esophagitis; M85.88 Other specified disorders of bone density and structure, other site; M26.609 Unspecified temporomandibular joint disorder, unspecified side; Z98.890 Other specified postprocedural states; Z96.643 Presence of artificial hip joint, bilateral; Z96.651 Presence of right artificial knee joint; Z87.891 Personal history of nicotine dependence; Z87.19 Personal history of other diseases of the digestive system
CPT/HCPCS: 27447; 36415; 73560; 80048; 85025; 97110; 97161; 97165; C1776; A9270; C1713; J0171; J0690; J1100; J1885; J2270; J2405; J2704; J2795; J3010; J7030; J7120; J7512

== ENCOUNTER 2024-10-11 08:44 | Outpatient (CLI) | payer BC, SELFPAY ==
--- NOTE | ~2024-10-11 | XR_ITS ---
XR knee LT 3V Ordering provider: Bull Black MD History: . Z96.652 - REPLACED 08/23/24, FOLLOW UP EXAM, NO CONCERNS . Comparison: None. FINDINGS: BONES: No acute fracture or dislocation. JOINT SPACES: Total knee arthroplasty. SOFT TISSUES: Normal. IMPRESSION: No acute osseous abnormality left knee. Total knee arthroplasty. Reviewed, dictated and finalized at location A. RESS MAKER
== END 2024-10-11 08:45 | disposition home or self-care (01) ==
PROVIDERS: PCP Family Medicine; Visit Provider Orthopaedic Surgery
DX: Z96.652 Presence of left artificial knee joint (principal)
CPT/HCPCS: 73562

== ENCOUNTER 2025-02-14 11:13 | Outpatient (CLI) | payer BC, SELFPAY ==
[2025-02-14 14:56] LABS: Basophils Absolute Auto 0.1 K/mm3 (0.0-0.1); Basophils Percent Auto 1.2 % (0.2-1.2); Eosinophils Absolute Auto 0.1 K/mm3 (0-0.3); Eosinophils Percent Auto 2.5 % (0-4.4); Hematocrit 45.4 % (37.0-47.0); Hemoglobin 14.2 g/dL (12.0-15.0); Immature Granulocyte Absolute 0.01 K/mm3 (0.00-0.031); Immature Granulocyte Percent A 0.2 % (0-0.5); Immature Platelet Fraction Pct 4.1 % (0.9-11.2); Lymphocytes Percent Auto 22.9 % (18.3-44.2); Mean Corpuscular HGB Conc 31.3 g/dl (32-36); Mean Corpuscular Hemoglobin 29.8 pg (26-34); Mean Corpuscular Volume 95.4 fl (80-100); Mean Platelet Volume 11.2 fl (7.4-10.4); Monocytes Absolute Auto 0.4 K/mm3 (0.1-0.6); Monocytes Percent Auto 6.7 % (2.6-8.5); Neutrophils Absolute Auto 3.8 K/mm3 (1.3-6.7); Neutrophils Percent Auto 66.5 % (45.5-73.1); Platelet Count Result 231 k/mm3 (150-375); Red Blood Count 4.76 M/mm3 (4.2-5.4); Red Cell Distribution Width 13.2 % (11.5-14.5); White Blood Count 5.7 K/mm3 (4.5-10.0)
[2025-02-14 15:29] LABS: Anisocytosis 1+; Burr Cells 1+; Ovalocytes 1+; Platelet Estimate Adequate (Adequate); Schistocytes None Seen
[2025-02-14 15:35] LABS: Alanine Aminotransferase 18 U/L (6-35); Albumin Level 4.2 g/dL (3.5-5.1); Alkaline Phosphatase 68 U/L (38-126); Anion Gap 8 mmol/L (4-12); Aspartate Amino Transferase 37 U/L (14-36); Blood Urea Nitrogen 13 mg/dL (7-17); Calcium 9.1 mg/dL (8.4-10.2); Carbon Dioxide 29 mmol/L (22-30); Chloride 98 mmol/L (98-107); Cholesterol 172 mg/dL (0-200); Estimated Glomerular Filt Rate > 60; Glucose 85 mg/dL (65-110); HDL Direct 87 mg/dL; Potassium 4.5 mmol/L (3.4-5.0); Sodium 135 mmol/L (137-145); Triglycerides 105 mg/dL (<150)
[2025-02-14 15:46] LABS: LDL Cholesterol Direct 60 mg/dL
== END 2025-02-14 11:14 | disposition home or self-care (01) ==
LOC: ANHGOSHLAB 11:14
PROVIDERS: PCP Family Medicine; Visit Provider Nurse Practitioner Family
DX: E78.5 Hyperlipidemia, unspecified (principal); I10 Essential (primary) hypertension; E55.9 Vitamin D deficiency, unspecified
CPT/HCPCS: 36415; 80053; 80061; 82306; 85025; 85055

== ENCOUNTER 2025-02-24 02:04 | Day surgery (SDC) | payer BC, SELFPAY ==
[2025-02-21 09:36] VITALS: BMI 24.0
[2025-02-24 09:50] VITALS: BP 153/69; PULSE 89; RESP 20; TEMP 36.1; O2SAT 97; BMI 23.8
[2025-02-24] MEDS: LACTATED RINGERS 1,000 ML 150 ML IV CONT (10:06)
--- NOTE | 2025-02-24 10:40 | P.PNAN_ITS ---
Anes - Initial Pre Proc Eval Procedure: Operation Date: 02/24/25 11:00 Proposed Procedures p Esophagogastroduodenoscopy EGD - Hai Guevara MD Date/Time: 02/24/25 10:40 Surgeon: Hai Guevara MD Pre Op Diagnosis: Dysphagia, unspecified Patient Data Age: 79 Gender: F Height: 1.68 m Weight: 67.1 kg Last Vital Signs Temp 97 F L 02/24/25 09:50 Pulse 89 02/24/25 09:50 Resp 20 02/24/25 09:50 BP 153/69 H 02/24/25 09:50 Pulse Ox 97 02/24/25 09:50 O2 Del Method Room Air 02/24/25 09:50 Allergies Allergy/AdvReac Type Severity Reaction Status Date / Time lisinopril AdvReac Mild Cough Verified 02/24/25 09:48 Home Medications ?Medication ?Instructions ?Recorded ?Confirmed ?Type multivitamin 1 tablet PO DAILY 10/12/19 02/24/25 History azelastine 137 mcg-fluticasone 50 1 spray intranasal BID PRN Nasal 02/23/23 02/21/25 History mcg/spray nasal spray Congestion magnesium 200 mg tablet 200 mg PO DAILY 03/23/24 02/24/25 History acetaminophen 500 mg capsule 1,000 mg PO PRN 08/03/24 02/21/25 History aspirin 81 mg tablet,delayed 81 mg PO BID 14 days #28 tabs 08/23/24 02/24/25 Rx release estradiol 1 mg tablet 1 mg PO DAILY #90 tabs 10/19/24 02/24/25 Rx losartan 50 mg tablet 50 mg PO DAILY #90 tabs 10/19/24 02/24/25 Rx omeprazole 20 mg capsule,delayed 20 mg PO DAILY #90 caps 10/19/24 02/24/25 Rx release simvastatin 40 mg tablet 40 mg PO DAILY #90 tabs 01/13/25 02/24/25 Rx verapamil 240 mg tablet,extended 240 mg PO DAILY #90 tabs 01/13/25 02/24/25 Rx release Patient hx anesthesia problems: none Family hx anesthesia problems: none Results Review: All pre-operative results and documents have been reviewed as part of the pre- operative evaluation. [facility] Past Medical History Medical History (Updated 02/14/25 @ 11:20 by Isaura Azul NP) Cataract Hyperlipidemia TMJ (temporomandibular joint disorder) Osteoarthritis of right knee Dyslipidemia Environmental allergies Essential (primary) hypertension GERD without esophagitis Osteopenia Postmenopausal state History of esophageal stricture 12/2016 History of leukocytosis 2014 Osteoarthritis of both knees Surgical History Surgical History (Updated 02/14/25 @ 11:20 by Isaura Azul NP) History of left knee replacement (~07/2024) History of appendectomy History of right knee joint replacement (~12/2019) History of endoscopy 01/20/12 02/25/18 History of right hip replacement (~05/2019) History of left hip replacement (~04/2018) Hx of wisdom tooth extraction Hx of tonsillectomy (~1948) History of hysterectomy (~03/07/98) Family History Family History Son Hypertension Mother No problems noted. Father Parkinson disease Social History Social History (Updated 02/14/25 @ 11:28 by Isaura Azul NP) Social History: She lives alone and has 3 children. She is . She worked at [employer] prior to getting . She stayed home and raised her children. Then once her children were out of the house she worked various jobs including working at [employer]. Code status full code Smoking packs per day: 1 Smoking cigarettes per day: 20.0 Years smoked: 10 Smoking pack-years: 10.00 Smoking status: Former smoker Tobacco type: cigarettes Second hand tobacco smoke exposure: No Smoking end date: 11/24/02 Alcohol intake: never Substance use: never Substance use type: does not use Do You Feel Safe in your Home?: Yes Lack of Transportation: No Lack of Food: Never True Current Housing: I Have Housing Concerned About Future Housing: No Difficulty Paying Gas/Electric Bills: No Difficulty Paying for Meds: No Currently Unemployed: No Education: High School Diploma/GED Difficulty w/ Childcare or Family Care: No Living arrangements: with family Additional living arrangements comments: Daughter Gender identity (if verbalized by the patient): Female Spiritual care concerns: No Agree to blood products: Yes Anes - Eval Final PreProcedure Day of Procedure 02/24/25 10:40 Patient weight: normal Heart: regular rate and rhythm Lungs: clear to auscultation Airway: Mallampati scale class II Neurological: alert and oriented Last oral intake: >/= 8 hours ASA classification: III Emergent: no Anesthetic plan: proceed Anesthesia type and monitoring: general GIVS and standard monitoring Results Review: All pre-operative results and documents have been reviewed as part of the pre- operative evaluation. Informed Consent: The patient's anesthetic plan and its attendant risks and benefits were discussed with the patient/family/POA. Questions were solicited and answers provided to the satisfaction of the patient/family/POA.
--- NOTE | 2025-02-24 10:57 | P.HP_ITS ---
H&P: HPI History of Present Illness Date/Time: 02/24/25 10:57 Chief Complaint: Dysphagia Narrative: the patient has been experiencing difficulty swallowing solids for the past 6 months. She states that more than 10 years ago she had a similar problem that was fold with dilatation. She is refe Review of Systems Review of Systems: All systems reviewed & are unremarkable except as noted in HPI and below PMFSH Past Medical History Medical History (Updated 02/14/25 @ 11:20 by Isaura Azul NP) Cataract Hyperlipidemia TMJ (temporomandibular joint disorder) Osteoarthritis of right knee Dyslipidemia Environmental allergies Essential (primary) hypertension GERD without esophagitis Osteopenia Postmenopausal state History of esophageal stricture 12/2016 History of leukocytosis 2014 Osteoarthritis of both knees Surgical History Surgical History (Updated 02/14/25 @ 11:20 by Isaura Azul NP) History of left knee replacement (~07/2024) History of appendectomy History of right knee joint replacement (~12/2019) History of endoscopy 01/20/12 02/25/18 History of right hip replacement (~05/2019) History of left hip replacement (~04/2018) Hx of wisdom tooth extraction Hx of tonsillectomy (~194) History of hysterectomy (~03/07/98) Family History Family History Son Hypertension Mother No problems noted. Father Parkinson disease Social History Social History (Updated 02/14/25 @ 11:28 by Isaura Azul NP) Social History: She lives alone and has 3 children. She is . She worked at [employer] prior to getting . She stayed home and raised her children. Then once her children were out of the house she worked various jobs including working at [employer]. Code status full code Smoking packs per day: 1 Smoking cigarettes per day: 20.0 Years smoked: 10 Smoking pack-years: 10.00 Smoking status: Former smoker Tobacco type: cigarettes Second hand tobacco smoke exposure: No Smoking end date: 11/24/02 Alcohol intake: never Substance use: never Substance use type: does not use Do You Feel Safe in your Home?: Yes Lack of Transportation: No Lack of Food: Never True Current Housing: I Have Housing Concerned About Future Housing: No Difficulty Paying Gas/Electric Bills: No Difficulty Paying for Meds: No Currently Unemployed: No Education: High School Diploma/GED Difficulty w/ Childcare or Family Care: No Living arrangements: with family Additional living arrangements comments: Daughter Gender identity (if verbalized by the patient): Female Spiritual care concerns: No Agree to blood products: Yes Meds Home Medications and Allergies Home Medications ?Medication ?Instructions ?Recorded ?Confirmed ?Type multivitamin 1 tablet PO DAILY 10/12/19 02/24/25 History azelastine 137 mcg-fluticasone 50 1 spray intranasal BID PRN Nasal 02/23/23 02/21/25 History mcg/spray nasal spray Congestion magnesium 200 mg tablet 200 mg PO DAILY 03/23/24 02/24/25 History acetaminophen 500 mg capsule 1,000 mg PO PRN 08/03/24 02/21/25 History aspirin 81 mg tablet,delayed 81 mg PO BID 14 days #28 tabs 08/23/24 02/24/25 Rx release estradiol 1 mg tablet 1 mg PO DAILY #90 tabs 10/19/24 02/24/25 Rx losartan 50 mg tablet 50 mg PO DAILY #90 tabs 10/19/24 02/24/25 Rx omeprazole 20 mg capsule,delayed 20 mg PO DAILY #90 caps 10/19/24 02/24/25 Rx release simvastatin 40 mg tablet 40 mg PO DAILY #90 tabs 01/13/25 02/24/25 Rx verapamil 240 mg tablet,extended 240 mg PO DAILY #90 tabs 01/13/25 02/24/25 Rx release Allergies Allergy/AdvReac Type Severity Reaction Status Date / Time lisinopril AdvReac Mild Cough Verified 02/24/25 09:48 Vital Signs Vital Signs - 24 hr 02/24/25 09:50 Temperature 97 F L Pulse Rate 89 Respiratory Rate 20 Blood Pressure 153/69 H Pulse Oximetry 97 Oxygen Delivery Room Air Exam Const: General: cooperative and healthy appearing Resp: Effort & Inspection: normal respiratory effort and able to speak in complete sentences Auscultation: clear to auscultation bilaterally Cardio: Rate: regular rate Rhythm: regular rhythm GI: Inspection: normal to inspection GI Palp: No No hepatosplenomegaly present Auscultation: normal bowel sounds Rectal Exam: deferred Skin: General skin exam: normal color Psych: Appearance: grossly normal Mental Status: mental status grossly normal Assessment and Plan Assessment and plan (1) Dysphagia: Qualifiers: Dysphagia type: unspecified Qualified Code(s): R13.10 - Dysphagia, unspecified Code(s): R13.10 - Dysphagia, unspecified Status: Acute Assessment and Plan: The patient is deemed a good candidate for the procedure. Consent signed. Will proceed.
[2025-02-24 11:13] VITALS: BP 99/49; PULSE 78; RESP 13; O2SAT 100
[2025-02-24 11:23] VITALS: BP 126/55; PULSE 78; RESP 23; O2SAT 100
[2025-02-24 11:33] VITALS: BP 143/48; PULSE 76; RESP 24; O2SAT 99
== END 2025-02-24 11:49 | disposition home or self-care (01) ==
PROVIDERS: PCP Family Medicine; Referring Provider Nurse Practitioner Family; Visit Provider Internal Medicine Gastroenterology
PROC: 0DJ08ZZ Inspection of Upper Intestinal Tract, Via Natural or Artificial Opening Endoscopic (ICD-10-PCS; CPT 43235; principal; 2025-02-24 11:00)
DX: R13.10 Dysphagia, unspecified (principal); K44.9 Diaphragmatic hernia without obstruction or gangrene; K29.30 Chronic superficial gastritis without bleeding; E78.5 Hyperlipidemia, unspecified; I10 Essential (primary) hypertension; K21.9 Gastro-esophageal reflux disease without esophagitis; M85.80 Other specified disorders of bone density and structure, unspecified site; Z96.653 Presence of artificial knee joint, bilateral; Z87.891 Personal history of nicotine dependence; Z79.82 Long term (current) use of aspirin
CPT/HCPCS: 43235; J2003; J2371; J2704; J7120

== ENCOUNTER 2025-04-12 09:42 | Outpatient (CLI) | payer BC, SELFPAY ==
--- NOTE | ~2025-04-12 | XR_ITS ---
EXAMINATION: XR barium swallow DATE: 04/12/2025 10:20 INDICATION: Assess for paraesophageal hernia TECHNIQUE: The patient drank thick barium, gas-producing crystals, and thin barium. Fluoroscopic spot radiographs of the hypopharynx and esophagus were obtained. Fluoroscopy exposure time was 2.0 minut es. A total of 1332 fluoroscopic images were recorded. Total DAP was 3.771 Gycm^2. COMPARISON: None. FINDINGS: The pharynx is symmetric and without evidence of mass lesion or mucosal irregularity. The e sophagus is normal without mass or stricture. There is mild esophageal dysmotility with weakening of the primary and secondary peristaltic waves which is likely related to age. There is a moderate-sized sliding-type hiatal hernia with gastroesophageal junction approximately 7 cm above the level of the diaphragm. There was spontaneous reflux of contrast from the intra-abdominal into the intrathoracic p ortion the stomach. No subsequent gastroesophageal reflux with provocative maneuvers. IMPRESSION: 1. Moderate-sized sliding-type hiatal hernia. Reviewed, dictated and finalized at location A.
== END 2025-04-12 09:43 | disposition home or self-care (01) ==
PROVIDERS: PCP Family Medicine; Visit Provider Internal Medicine Gastroenterology
DX: R13.10 Dysphagia, unspecified (principal); K44.9 Diaphragmatic hernia without obstruction or gangrene
CPT/HCPCS: 74220

== ENCOUNTER 2025-05-02 14:10 | Outpatient (CLI) | payer BC, SELFPAY ==
--- NOTE | ~2025-05-02 | MM_ITS ---
EXAMINATION: MM screening jaziel BI w robin HISTORY: Screening TECHNIQUE: Craniocaudal and mediolateral oblique 3-D tomosynthesis images were obtained and synthetic 2-D images were generated. CAD analysis was submitted and interpreted. COMPARISON: Comparison to multiple prior studies sequentially, with oldest reviewed study dated 03/2017. BREAST PARENCHYMAL COMPOSITION: Not Dense: The breasts are almost entirely fatty. FINDINGS: There is no evidence of suspicious mass, calcification, or architectural distortion to sugg est malignancy in either breast. There has been no suspicious interval change. IMPRESSION: 1. No mammographic evidence of malignancy. 2. Recommend routine screening mammography in one year. BI-RADS Category 1: Negative Reviewed, dictated and finalized at location B.
== END 2025-05-02 14:11 | disposition home or self-care (01) ==
PROVIDERS: PCP Family Medicine; Visit Provider Family Medicine
DX: Z12.31 Encounter for screening mammogram for malignant neoplasm of breast (principal)
CPT/HCPCS: 77063; 77067

== ENCOUNTER 2025-08-29 10:59 | Outpatient (CLI) | payer BC, SELFPAY ==
[2025-08-29 12:55] LABS: Hematocrit 47.0 % (37.0-47.0); Hemoglobin 14.8 g/dL (12.0-15.0); Immature Granulocyte Percent A 0.2 % (0-0.5); Lymphocytes Absolute Auto 1.38 K/mm3 (0.9-3.2); Mean Corpuscular HGB Conc 31.5 g/dl (32-36); Mean Corpuscular Hemoglobin 29.7 pg (26-34); Mean Corpuscular Volume 94.2 fl (80-100); Nucleated Red Blood Cells Absolute Auto 0.000 K/mm3 (0.0-0.012); Nucleated Red Blood Cells Perc 0.0 % (0.0-0.2); Platelet Count Result 341 k/mm3 (150-375); Red Blood Count 4.99 M/mm3 (4.2-5.4); White Blood Count 6.0 K/mm3 (4.5-10.0)
[2025-08-29 13:05] LABS: Alanine Aminotransferase 19 U/L (6-35); Albumin Level 4.4 g/dL (3.5-5.1); Alkaline Phosphatase 60 U/L (38-126); Anion Gap 6 mmol/L (4-12); Aspartate Amino Transferase 52 U/L (14-36); Bilirubin,Total 0.9 mg/dL (0.2-1.3); Blood Urea Nitrogen 13 mg/dL (7-17); Calcium 9.0 mg/dL (8.4-10.2); Carbon Dioxide 30 mmol/L (22-30); Chloride 97 mmol/L (98-107); Cholesterol 188 mg/dL (0-200); Estimated Glomerular Filt Rate > 60; Glucose 98 mg/dL (65-110); HDL Direct 94 mg/dL; Magnesium 2.2 mg/dL (1.6-2.3); Potassium 4.6 mmol/L (3.4-5.0); Sodium 133 mmol/L (137-145); Total Protein 6.9 g/dL (6.3-8.2); Triglycerides 100 mg/dL (<150)
[2025-08-29 13:34] LABS: Thyroid Stimulating Hormone Reflex 0.809 uIU/mL (0.465-4.68)
[2025-08-29 13:43] LABS: Hemoglobin A1C 5.5 % (<5.7)
[2025-08-29 13:59] LABS: Vitamin B12 847.0 pg/mL (239-931)
== END 2025-08-29 11:00 | disposition home or self-care (01) ==
LOC: ANHGOSHLAB 11:00
PROVIDERS: PCP Nurse Practitioner Family; Visit Provider Nurse Practitioner Family
DX: E55.9 Vitamin D deficiency, unspecified (principal); I10 Essential (primary) hypertension; E78.5 Hyperlipidemia, unspecified; R73.9 Hyperglycemia, unspecified
CPT/HCPCS: 36415; 80053; 80061; 82306; 82607; 83036; 83735; 84443; 85025

== ENCOUNTER 2025-10-27 09:34 | Outpatient (CLI) | payer BC, SELFPAY ==
[2025-10-27 14:32] LABS: Alanine Aminotransferase 19 U/L (6-35); Albumin Level 4.1 g/dL (3.5-5.1); Alkaline Phosphatase 59 U/L (38-126); Anion Gap 1 mmol/L (4-12); Aspartate Amino Transferase 48 U/L (14-36); Bilirubin,Total 0.9 mg/dL (0.2-1.3); Blood Urea Nitrogen 14 mg/dL (7-17); Calcium 9.2 mg/dL (8.4-10.2); Carbon Dioxide 33 mmol/L (22-30); Chloride 99 mmol/L (98-107); Estimated Glomerular Filt Rate > 60; Glucose 77 mg/dL (65-110); Potassium 4.6 mmol/L (3.4-5.0); Sodium 133 mmol/L (137-145); Total Protein 6.5 g/dL (6.3-8.2)
== END 2025-10-27 09:35 | disposition home or self-care (01) ==
LOC: ANHGOSHLAB 09:35
PROVIDERS: PCP Nurse Practitioner Family; Visit Provider Nurse Practitioner Family
DX: R74.01 Elevation of levels of liver transaminase levels (principal)
CPT/HCPCS: 36415; 80053